=== PATIENT | male | born 1975 | race Caucasian/White ===

== ENCOUNTER → 2016-09-19 | Outpatient (CLI) | payer OTHER ==
[~2016-09-19] MED LIST: AMPH10TA2 PO; AMPH20CA3 PO; BENZ-88 PO; BREX1TAB3 PO; BREX1TAB6 PO; CINA0.42 PO; CLON1TAB3 PO; ERGO500011 PO; ESOM20CA PO; GLC/500 PO; METH1CAP PO; PANT40TA PO; PERP1TAB5 PO; PRAZ1CAP10 PO; PROP20TA67 PO; PROP40TA5 PO; PXL20 PO; QUET300T2 PO; SERT-234 PO; VILA1TAB2 PO
--- NOTE | 2016-09-19 22:09 | DIAGNOSTIC IMAGING REPORT ---
NUCLEAR PARATHYROID SCAN CLINICAL HISTORY: Elevated parathyroid hormone levels. COMPARISON STUDY: No priors. TECHNIQUE: Nuclear parathyroid scan is performed following the IV administration of 20.4 mCi of technetium 99m labeled Cardiolite. Images are acquired at 15 minutes and 3 hours in multiple obliquities. 3-D reformats are created and assessed. FINDINGS: On the initial 15 minute images there is expected tracer activity within the salivary glands and thyroid. There is also expected myocardial activity. On the 3 hour delayed images there has been washout of tracer from the thyroid gland. There is no focal tracer deposition identified in the thyroid bed to suggest parathyroid adenoma. No abnormal tracer deposition is identified within the neck or the mediastinum. IMPRESSION: There is no scintigraphic evidence of parathyroid adenoma as clinically queried. Electronically signed by: Mika Weber M.D. 09/19/2016 10:07 PM Dictated Date/Time: 09/19/2016 10:05 PM
== END | disposition home or self-care (01) ==
LOC: C.NUCL 14:23
PROVIDERS: ATTEND Internal Medicine Endocrinology, Diabetes & Metabolism
DX: E34.9 Endocrine disorder, unspecified (principal)

== ENCOUNTER 2017-03-04 22:56 | Emergency (ER) | payer OTHER ==
[~2017-03-04] VITALS: Ht 177.8 cm; Wt 115.6 kg
[~2017-03-04 22:56] MED LIST changes: -AMPH10TA2 PO; -AMPH20CA3 PO; -BENZ-88 PO; -BREX1TAB6 PO; +CGN1X PO; -CINA0.42 PO; -ERGO500011 PO; -GLC/500 PO; -PANT40TA PO; -PRAZ1CAP10 PO; -PROP20TA67 PO; -QUET300T2 PO; -SERT-234 PO
[2017-03-04 23:01] VITALS: Ht 177.8 cm; Wt 115.6 kg
[2017-03-04] MEDS ORDERED: ALUMINUM/MAGNESIUM SUSP 30 ML UDC PO STA (23:13)
[2017-03-04] MEDS ORDERED: ONDANSETRON INJ 2 MG/ML 2 ML VIAL IV STA (23:13)
[2017-03-04] MEDS ORDERED: LIDOCAINE HCL 2% VISC SOLN 20 ML UDC PO STA (23:13)
[2017-03-04 23:33] VITALS: O2SAT 97
[2017-03-04 23:37] LABS: BASO % 0.3 %; BASO ABS # 0.02 K/uL (0-0.2); COMPLETE YES; EOS % 3.2 %; HEMATOCRIT 38.5 % (42-52); IG% 0.5 %; LYMPH % 39.3 %; LYMPH ABS # 2.96 K/uL (1.2-3.4); MEAN CELL VOLUME 87.5 fL (80-100); MEAN CORPUSCULAR HEMOGLOBIN 30.9 pg (25-34); MEAN CORPUSCULAR HGB CONC 35.3 g/dl (32-36); MEAN PLATELET VOLUME 9.5 fL (7.4-10.4); MONO % 5.8 %; NEUT % 50.9 %; PLATELET COUNT 169 K/uL (130-400); WHITE BLOOD COUNT 7.53 K/uL (4.8-10.8)
[2017-03-04 23:57] LABS: ALT/SGPT 99 U/L (12-78); AST/SGOT 45 U/L (15-37); BLOOD UREA NITROGEN 14 mg/dl (7-18); CALCIUM 8.1 mg/dl (8.5-10.1); CARBON DIOXIDE 27 mmol/L (21-32); CHLORIDE 105 mmol/L (98-107); GLUCOSE 125 mg/dl (70-99); SODIUM 142 mmol/L (136-145)
[2017-03-04 23:59] LABS: ALKALINE PHOSPHATASE 65 U/L (45-117)
[2017-03-05 00:59] VITALS: TEMP 36.7
[2017-03-05] MEDS ORDERED: BREX1TAB6 PO (01:07)
[2017-03-05] MEDS ORDERED: SERT-234 PO (01:08)
[2017-03-05] MEDS ORDERED: GLC/500 PO (01:09)
[2017-03-05] MEDS ORDERED: PROP20TA67 PO (01:11)
[2017-03-05] MEDS ORDERED: CINA0.42 PO (01:13)
[2017-03-05] MEDS ORDERED: PRAZ1CAP10 PO (01:14)
[2017-03-05] MEDS ORDERED: QUET300T2 PO (01:15)
[2017-03-05] MEDS ORDERED: AMPH10TA2 PO (01:17)
[2017-03-05] MEDS ORDERED: AMPH20CA3 PO (01:17)
[2017-03-05] MEDS ORDERED: ERGO1CAP41 PO (01:19)
[2017-03-05 01:59] VITALS: BP 110/80; PULSE 75; O2SAT 97
[2017-03-05] MEDS ORDERED: PANTOprazole SOD 40 MG TAB PO STA (02:11)
[2017-03-05] MEDS ORDERED: PANT40TA PO (02:15)
--- NOTE | 2017-03-05 05:17 | EMERGENCY ROOM VISIT NOTE ---
History First contact with patient: 23:08 Chief Complaint: ABDOMINAL PAIN Stated Complaint: ABDOMINAL PAIN,NAUSEA Nursing Triage Summary: abdominal pain 12/29. pt states it started a few hours ago and he took a zantac. pt states he was eating taco jenkins and typically doesnt feel this way afterwards History of Present Illness The patient is a 41 year old male who presents to the Emergency Room with complaints of epigastric right upper quadrant pain for the past several hours after eating Taco Jenkins. Pain currently 5 out of 10. Nothing makes it better or worse. No history similar symptoms in the past. Patient tried Zantac with no improvement of symptoms. Patient denies chest pain, dyspnea, fever, chills, vomiting, diarrhea, back pain, urinary symptoms. He still has his gallbladder. Review of Systems See HPI for pertinent positives & negatives. A total of 10 systems reviewed and were otherwise negative. Past Medical/Surgical History Medical Problems: (1) Anxiety (2) Depression (3) Depression (4) Hypertension (5) Manic bipolar I disorder Family History Cancer Gallbladder disease Hypertension Social History Smoking Status: Never Smoker Alcohol Use: occasionally Drug Use: none Marital Status: single Housing Status: lives alone Occupation Status: [employer] student Current/Historical Medications Scheduled Amphetamine-Dextroamphetamine 10MG (Adderall 10MG), 10 MG PO DAILY@ NOON Amphetamine-Dextroamphetamine 20MG (Adderall Xr 20MG), 20 MG PO QAM Brexpiprazole (Rexulti), 4 MG PO QAM Cinacalcet (Sensipar), 30 MG PO BID Clonazepam (Klonopin), 1 MG PO QID Ergocalciferol (Vitamin D 55097 Unit), 50,000 UNITS PO WK Metformin Hcl (Glucophage), 1,000 MG PO BID Pantoprazole (Protonix), 40 MG PO DAILY Prazosin Hcl (Prazosin), 1 MG PO HS Propranolol Hcl (Propranolol Hcl), 40 MG PO TID Quetiapine Fumarate (Seroquel Xr), 600 MG PO HS Sertraline (Zoloft), 200 MG PO DAILY Allergies Coded Allergies: Chlordiazepoxide (Unverified Allergy, Unknown, ANGRY/AGGRESSIVE, 05/09/16) Physical Exam Vital Signs Date Time Temp Pulse Resp B/P (MAP) Pulse Ox O2 Delivery O2 Flow Rate FiO2 03/05/17 01:59 75 18 110/80 97 Room Air 03/05/17 00:59 36.7 70 18 112/81 97 Room Air 03/04/17 23:35 73 03/04/17 23:34 36.7 73 18 120/91 97 Room Air 03/04/17 23:33 97 Room Air 03/04/17 23:25 95 Room Air 03/04/17 23:01 36.7 73 18 144/99 96 Room Air Physical Exam VITALS: Vitals are noted on the nurse's note and reviewed by myself. Vital signs stable. GENERAL: Pleasant male, in no acute distress, nondiaphoretic, well-developed well-nourished. SKIN: The skin was without rashes, erythema, edema, or bruising. There is no tenting of the skin. Capillary reflex less than 2 seconds. HEAD: Normocephalic atraumatic. EARS: External auditory canals clear, tympanic membranes pearly martinez without erythema or effusion bilaterally. EYES: Pupils equal round and reactive to light and accommodation. Conjunctivae without injection, sclerae without icterus. Extraocular movements intact. NOSE: Patent, turbinates without inflammation or discharge. MOUTH: Mucous membranes moist. Pharynx without erythema or exudate. Uvula midline. Airway patent. Tongue does not deviate. NECK: Supple without nuchal rigidity. No lymphadenopathy. No thyromegaly. Cervical spine is nontender. No JVD. HEART: Regular rate and rhythm without murmurs gallops or rubs. LUNGS: Clear to auscultation bilaterally without wheezes, rales or rhonchi. No dullness to percussion. No retractions or accessory muscle use. ABDOMEN: Positive bowel sounds x 4. Normal tympanic percussion. Soft, tender to palpation epigastric right upper quadrant, no CVA tenderness, without masses or organomegaly. No guarding or rebound tenderness. MUSCULOSKELETAL: No muscle atrophy, erythema, or edema noted. NEURO: Patient was alert and oriented to person place and time. Normal sensation to light and sharp touch. No focal neurological deficits. Medical Decision & Procedures Laboratory Results 03/04/17 23:23 Red Blood Count 4.40, Mean Corpuscular Volume 87.5, Mean Corpuscular Hemoglobin 30.9, Mean Corpuscular Hemoglobin Concent 35.3, Mean Platelet Volume 9.5, Neutrophils (%) (Auto) 50.9, Lymphocytes (%) (Auto) 39.3, Monocytes (%) (Auto) 5.8, Eosinophils (%) (Auto) 3.2, Basophils (%) (Auto) 0.3, Neutrophils # (Auto) 3.83, Lymphocytes # (Auto) 2.96, Monocytes # (Auto) 0.44, Eosinophils # (Auto) 0.24, Basophils # (Auto) 0.02 03/04/17 23:23 Test 03/04/17 23:23 03/04/17 23:31 White Blood Count 7.53 K/uL (4.8-10.8) Red Blood Count 4.40 M/uL (4.7-6.1) Hemoglobin 13.6 g/dL (14.0-18.0) Hematocrit 38.5 % (42-52) Mean Corpuscular Volume 87.5 fL (80-100) Mean Corpuscular Hemoglobin 30.9 pg (25-34) Mean Corpuscular Hemoglobin Concent 35.3 g/dl (32-36) Platelet Count 169 K/uL (130-400) Mean Platelet Volume 9.5 fL (7.4-10.4) Neutrophils (%) (Auto) 50.9 % Lymphocytes (%) (Auto) 39.3 % Monocytes (%) (Auto) 5.8 % Eosinophils (%) (Auto) 3.2 % Basophils (%) (Auto) 0.3 % Neutrophils # (Auto) 3.83 K/uL (1.4-6.5) Lymphocytes # (Auto) 2.96 K/uL (1.2-3.4) Monocytes # (Auto) 0.44 K/uL (0.11-0.59) Eosinophils # (Auto) 0.24 K/uL (0-0.5) Basophils # (Auto) 0.02 K/uL (0-0.2) RDW Standard Deviation 44.2 fL (36.4-46.3) RDW Coefficient of Variation 13.9 % (11.5-14.5) Immature Granulocyte % (Auto) 0.5 % Immature Granulocyte # (Auto) 0.04 K/uL (0.00-0.02) Anion Gap 10.0 mmol/L (3-11) Est Creatinine Clear Calc Drug Dose 121.3 ml/min Estimated GFR () 106.4 Estimated GFR (Non- 91.8 BUN/Creatinine Ratio 14.0 (10-20) Calcium Level 8.1 mg/dl (8.5-10.1) Total Bilirubin 0.3 mg/dl (0.2-1) Direct Bilirubin < 0.1 mg/dl (0-0.2) Aspartate Amino Transf (AST/SGOT) 45 U/L (15-37) Alanine Aminotransferase (ALT/SGPT) 99 U/L (12-78) Alkaline Phosphatase 65 U/L (45-117) Total Protein 7.6 gm/dl (6.4-8.2) Albumin 4.1 gm/dl (3.4-5.0) Lipase 305 U/L (73-393) Hepatitis B Surface Antigen NEG (NEG) Hepatitis C Antibody NEG (NEG) Bedside Troponin I < 0.030 ng/ml (0-0.045) Medications Administered Medications (Trade) Dose Ordered Sig/Esteban Route Start Time Stop Time Status Last Admin Dose Admin Lidocaine HCl (Viscous Lidocaine 2% Soln) 10 ml NOW STAT PO 03/04/17 23:13 03/04/17 23:15 DC 03/04/17 23:30 10 ML Al Hydroxide/Mg Hydroxide (Maalox Susp) 30 ml NOW STAT PO 03/04/17 23:13 03/04/17 23:15 DC 03/04/17 23:30 30 ML Ondansetron HCl (Zofran Inj) 4 mg NOW STAT IV 03/04/17 23:13 03/04/17 23:15 DC 03/04/17 23:30 4 MG Pantoprazole Sodium (Protonix Tab) 40 mg NOW STAT PO 03/05/17 02:11 03/05/17 02:13 DC 03/05/17 02:21 40 MG ED Course Prior records/ancillary studies reviewed. Triage Nursing notes reviewed. The patient's history was concerning for abdominal pain. Differential diagnosis: Etiologies such as appendicitis, diverticulitis, PUD, biliary pathology, cardiac , UTI, pancreatitis, obstruction, mesenteric ischemia, aortic pathology, infections, inflammatory bowel disease, renal colic, as well as others were entertained. Physical examination findings: As above. ER treatment provided: GI cocktail, Protonix On reassessment the patient felt better. Diagnostics interpreted by me: ECG: Normal sinus, normal intervals, no acute ST-T wave changes. Impression normal sinus interpreted by myself The labs revealed mildly elevated LFTs. Negative troponin. No white count. Negative hepatitis panel Imaging studies: US RUQ: Enlarged liver with increased echogenicity suggesting hepatic steatosis. Gallbladder sludge. Tiny echogenic foci with twinkle artifact may represent tiny polyps, adenomyomatosis or non-shadowing gallstones. No distinct shadowing gallstones noted. No gallbladder wall thickening or pericholecystic fluid. Common bile duct is within normal limits. Right kidney is unremarkable. Radiologist: Alhaji Antonio MD Exam and history seem consistent with biliary colic. Patient felt much better after being medicated as above. He was advised to avoid fatty foods and to follow-up family care for further evaluation and workup for his symptoms tonight. He is advised to return to the ER immediately for abdominal pain, fevers, vomiting, worsening signs or symptoms or as needed. Patient did not have acute abdomen on exam. He is well-appearing. He is tolerating fluids. By the evaluation outlined above emergent etiologies such as appendicitis, diverticulitis, PUD, UTI, pancreatitis, obstruction, mesenteric ischemia, aortic pathology, infections, inflammatory bowel disease, renal colic, as well as others were deemed relatively unlikely. The pt informed about the findings as listed above. All questions were answered and pleased with the treatment. Return instructions were outlined and the patient was discharged in stable condition. Outpatient prescription management: Protonix Referral: The patient was referred back to their primary care physician for follow-up in 2 to 3 days for a recheck of the current condition. Case reviewed with my attending Medical Decision As above Impression Primary Impression: Biliary colic Departure Information Dispostion Home / Self-Care Condition GOOD Prescriptions Pantoprazole (Protonix) 40 Mg Tab 40 MG PO DAILY for 14 Days, #14 TAB Prov: Luzmaria Levy .MARÍA 03/05/17 Forms Call Back Authorization, HOME CARE DOCUMENTATION FORM, IMPORTANT VISIT INFORMATION Patient Instructions My [facility], ED Abdominal Pain Gallstone Poss Additional Instructions Recommend outpatient HIDA scan with the family care DrVicente for further workup on your gallbladder. Avoid fatty foods. Protonix 40 m tablet daily for next 2 weeks. Take this on an empty stomach. Try Maalox or Zantac for breakthrough symptoms for reflux. Avoid large meals. Avoid acidic foods. Rest and drink plenty of fluids as tolerated. Continue current medications. Avoid strenuous activities and anything that worsens your pain. Resume normal activities once your symptoms resolve. Return to the ER immediately for chest pain, abdominal pain, black or blood in your stools, vomiting, fevers, chest pains, difficulty breathing, worsening of your condition, or as needed. Follow up with your primary physician in 2-3 days for a recheck of your current condition.
--- NOTE | 2017-03-05 07:39 | DIAGNOSTIC IMAGING REPORT ---
ABDOMINAL ULTRASOUND, RIGHT UPPER QUADRANT HISTORY: Right upper quadrant abdominal pain.. COMPARISON: Abdomen and pelvis CT 10/25/2015. FINDINGS: Pancreas: The head of the pancreas is within normal limits. The body and tail the pancreas are obscured by overlying bowel gas. Liver: The liver is echogenic consistent with fatty change. 24 cm in length. Focal fatty sparing adjacent to the gallbladder fossa. Gallbladder: No gallbladder wall thickening. Gallbladder sludge and a few punctate gallstones. Gallbladder is distended. CBD: 5 mm. Right kidney: No hydronephrosis. IMPRESSION: 1. Mildly distended gallbladder. No gallbladder wall thickening. Gallbladder sludge and a few punctate gallstones are again noted. This is overall similar to the prior study. 2. Hepatomegaly demonstrating fatty change. Electronically signed by: Obi Burris M.D. 03/05/2017 7:38 AM Dictated Date/Time: 03/05/2017 7:34 AM
--- NOTE | 2017-03-05 07:54 | DIAGNOSTIC IMAGING REPORT ---
CHEST ONE VIEW PORTABLE HISTORY: Short of breath. Atypical CHEST PAIN COMPARISON: Chest 05/09/2016. FINDINGS: No pneumothorax. No pleural effusions. The lungs are clear. The heart remains mildly enlarged. IMPRESSION: Stable mild cardiomegaly. Electronically signed by: Obi Burris M.D. 03/05/2017 7:53 AM Dictated Date/Time: 03/05/2017 7:52 AM
== END 2017-03-05 02:27 | disposition home or self-care (01) ==
LOC: C.EDB 22:58
DX: K80.50 Calculus of bile duct without cholangitis or cholecystitis without obstruction (principal); I10 Essential (primary) hypertension; F31.9 Bipolar disorder, unspecified; F41.9 Anxiety disorder, unspecified; Z79.899 Other long term (current) drug therapy

== ENCOUNTER → 2017-03-10 | Outpatient (CLI) | payer OTHER ==
[~2017-03-10] MED LIST changes: +AMPH10TA2 PO; +AMPH20CA3 PO; -BREX1TAB3 PO; +BREX1TAB6 PO; -CGN1X PO; +CINA0.42 PO; +ERGO500011 PO; -ESOM20CA PO; +GLC/500 PO; -METH1CAP PO; +PANT40TA PO; -PERP1TAB5 PO; +PRAZ1CAP10 PO; -PXL20 PO; +QUET300T2 PO; +SERT-234 PO; +SINCALIDE INJ 2.3 MCG in SODIUM CHLORIDE 0.9% 100ML 100 ML IV ONE; -VILA1TAB2 PO
--- NOTE | 2017-03-10 14:41 | DIAGNOSTIC IMAGING REPORT ---
NUCLEAR MEDICINE HEPATOBILIARY SCAN WITH EJECTION FRACTION HISTORY: ] Quadrant abdominal pain. BILIARY PAIN COMPARISON: Abdominal ultrasound 03/05/2017. TECHNIQUE: Immediately following the intravenous administration of 5.5 mCi Tc-99m Choletec, dynamic anterior abdominal imaging pre/post 2.3 mcg of Kinevac was performed. FINDINGS: Uniform hepatic tracer accumulation is shown. Prompt intrahepatic biliary excretion is seen. The gallbladder, common bile duct, and small bowel are all visualized by 35 minutes. This appearance represents the normal sequence of biliary excretion. The gall bladder ejection fraction following administration of Kinevac was 13% (normal >35%). IMPRESSION: 1. No evidence for cystic duct obstruction. 2. Gallbladder ejection fraction calculated to be 13 %. This is considered abnormal and could be related to biliary dyskinesia. Electronically signed by: Obi Burris M.D. 03/10/2017 2:40 PM Dictated Date/Time: 03/10/2017 2:38 PM
== END | disposition home or self-care (01) ==
LOC: C.NUCL 12:14
PROVIDERS: ATTEND Family Medicine
DX: K80.50 Calculus of bile duct without cholangitis or cholecystitis without obstruction (principal)

== ENCOUNTER → 2017-03-13 | Outpatient (CLI) | payer OTHER ==
[~2017-03-13] MED LIST changes: +ERGO1CAP41 PO; -ERGO500011 PO; -SINCALIDE INJ 2.3 MCG in SODIUM CHLORIDE 0.9% 100ML 100 ML IV ONE
[2017-03-13 09:44] LABS: CALCIUM 8.1 mg/dl (8.5-10.1)
== END | disposition home or self-care (01) ==
LOC: C.LAB1850 07:09
PROVIDERS: ATTEND Physician Assistant
DX: I10 Essential (primary) hypertension (principal); E83.52 Hypercalcemia; E34.9 Endocrine disorder, unspecified; E11.9 Type 2 diabetes mellitus without complications; E78.5 Hyperlipidemia, unspecified; E55.9 Vitamin D deficiency, unspecified

== ENCOUNTER → 2017-03-27 | Outpatient (CLI) | payer OTHER ==
[~2017-03-27] MED LIST changes: -ERGO1CAP41 PO; +ERGO500011 PO; -PANT40TA PO
== END | disposition home or self-care (01) ==
LOC: C.LAB1850 07:26
PROVIDERS: ATTEND Internal Medicine Endocrinology, Diabetes & Metabolism
DX: E83.52 Hypercalcemia (principal)

== ENCOUNTER → 2017-04-10 | Outpatient (CLI) | payer OTHER | END | disposition home or self-care (01) | LOC: C.LAB1850 07:34 | PROVIDERS: ATTEND Internal Medicine Endocrinology, Diabetes & Metabolism | DX: E34.9 Endocrine disorder, unspecified (principal) ==

== ENCOUNTER → 2017-07-13 | Outpatient (CLI) | payer OTHER | END | disposition home or self-care (01) | LOC: C.LAB1850 08:45 | PROVIDERS: ATTEND Physician Assistant | DX: R53.83 Other fatigue (principal) ==

== ENCOUNTER → 2017-07-19 | Outpatient (CLI) | payer OTHER | END | disposition home or self-care (01) | LOC: C.LAB1850 11:12 | PROVIDERS: ATTEND Physician Assistant | DX: E34.9 Endocrine disorder, unspecified (principal) ==

== ENCOUNTER → 2017-08-02 | Outpatient (CLI) | payer OTHER ==
--- NOTE | 2017-08-03 06:54 | PAP/PSG TECHNICIAN REPORT ---
[facility] Manager Garage Polysomnogram Report Study name: None Report date: 08/03/2017 Study date: 08/02/2017 Referring Physician: Dr.Michael Aden Name: TATYANA JUAREZ Interpreting Physician: Markus Suresh M.D. Date of : 1975 Manager Garage: Soraya Menchaca [facility]. Sex: Male Age: 42 StudyType: PSG Weight: 268.8 lbs Height: 42 years, Height 5' 9.5" BMI: 39.12 Medications: Klonopin 1mg , Wellbutrin XL 300 mg, Paxil 20 mg, Inderal 20 mg, Seroquel XR 400 mg, Metformin 500 mg, Adderall 20 mg, Diovan 80 mg, Vitamin D 50,000 IU, Flonasse, Vitamin B12 Patient History 42 yr. old male here for an updated PSG with mouth piece. Patient had a PSG done on 05/19/15, he had an AHI of 3.3 and Snore index of 581.7 and was under 89% for 266.6. He has since gained 14 pounds. Patient is not sure if his medication is causing his EDS. ESS 01/12. Parameters Monitored NPSG: E1-M2, E2-M1, Fp1-M2, Fp2-M1, F3-M2, F4-M2, F4-M1, C3-M2, C4-M2, C4-M1, O1-M2, O2-M2, O2-M1, T3-M2, T4-M1, P3-M2, P4-M1, CHIN1, CHIN2, HR, EKG, Legs, PFLOW, SNOR, FLOW, CFLOW, Tidal Volume, THOR, ABDO, SpO2, PLTH, CPRESS, ETCO2 Wave, ETCO2, pH Sleep Architecture Sleep Stages Time at Lights Off 10:10:44 PM STAGES Time (min.) TST (%) Time at Lights On 5:37:44 AM Wake 180.0 -- Total Recording Time (TRT) 447.50 min. N1 33.0 12 Total Sleep Period (TSP) 297.0 min. N2 199.5 75 Total Sleep Time (TST) 267.0min. N3 0.0 0 Awake Time 180.0 min. REM 34.5 13 Wake after Sleep Onset 30.0 min. Sleep Efficiency (SE) 60 % Sleep Onset Latency (JAELYN) 150.0 min. Number of Stage 1 Shifts None Awakenings 11 Stage Changes 48 Number of REM periods 5 REM 34.5 13 REM Latency 159.0 min. NREM 232.5 87 Body Position Analysis Supine Right Left Side Prone Vertical Total Sleep Time (min.) 151.2 117.3 21.0 138.33 0.0 0.0 Total Sleep Time (%) 48% 44% 8% 52 0% N/A% Total Sleep Time REM (min.) 31.0 3.5 0.0 None 0.0 0.0 Total Sleep Time NREM (min.) 97.7 113.8 21.0 None 0.0 0.0 Intermittent Wake (min.) 22.6 102.8 54.7 None 0.0 0.0 Total Sleep Period (%) 45% None None None None None Arousals Myoclonus (PLM) * Events Count Index Events Count Index Spontaneous 4 1 Events Awake (PLMW) 50 16.7 Respiratory 0 0.0 Events Asleep w/ Arousal (PLMA) 13 2.9 PLM 13 3 Events Asleep w/o Arousal (PLMS) 28 6.3 Snoring 5 1 Total Asleep 41 9.2 Total 22 5 Total 91 12 Respiratory Analysis * CA OA MA CH H RERA Total Count 1 0 0 0 44 0 45 Index 0.2 0.0 0.0 0 9.9 0 10.1 Mean Duration 13.0 0.0 0.0 0.00 18.5 0.0 18.3 Longest Duration 13.0 0.0 0.0 0.00 0.0 0.0 31.1 Respiratory Event Summary Total Supine ~Supine Right Left Prone REM NREM Apneas Count 1 1 0 0 0 N/A 1 0 Index 0.2 0 0 0.0 0.0 N/A 2 0 Hypopneas (4% Desat) Count 44 20 24 22 2 N/A 13 31 Index 9.9 9.3 10 11.3 5.7 N/A 22.6 8.0 Apneas & All Hypopneas Count 45 21 24 22 2 N/A 14 31 Index 10.1 10 10 11 6 N/A 24.3 8.0 Respiratory Events (Med[employer] Professor+All Hyp+RERA) Count 45 21 24 22 2 N/A 14 31 Index 10.1 10 10 11.3 5.7 N/A 24.3 8.0 Respiratory Related Arousal Count 0 21 0 0 0 N/A 0 0 Index 0.0 0 0 0 0 N/A 0 0 Snoring Analysis Supine Right Left Prone REM NREM Total Snore duration 55.0 min Snores count 1,998 964 4 N/A 168 2,798 2,966 Snore mean duration 1.1 Sec Snores index 932 493 11 N/A 292.2 722.1 666.5 TST with snoring (%) 20.6% Desaturation Event Summary: Minimum %SpO2 Event Count Mean/Min/Max Duration(sec.) Desaturation Index % Time In Bed > 90 99 16.0 / 4.5 / 51.5 31.7 42.4 86 - 90 72 14.9 / 4.5 / 60.0 17.2 57.0 81 - 85 0 N/A 0.0 0.5 76 - 80 0 N/A 0.0 0.1 71 - 75 0 N/A 0.0 0.0 66 - 70 0 N/A 0.0 0.0 61 - 65 0 N/A 0.0 0.0 56 - 60 0 N/A 0.0 0.0 51 - 55 0 N/A 0.0 0.0 < 50 0 N/A 0.0 0.0 Total REM NREM Awake <50% 0.0 min. 0.0 min. 0.0 min. 0.0 min. 51 - 60% 0.0 min. 0.0 min. 0.0 min. 0.0 min. 61 - 70% 0.0 min. 0.0 min. 0.0 min. 0.0 min. 71 - 80% 0.6 min. 0.2 min. 0.0 min. 0.4 min. 81 - 90% 253.8 min. 20.5 min. 188.8 min. 44.5 min. 91 - 100% 187.1 min. 13.8 min. 43.7 min. 129.6 min. Average 90 90 89 91 Minimum SpO2 78 80 84 78 Desaturation Event Index 16.5 31.3 17.3 13.7 # Desat. Events below 89% 107 13 64 30 Time(%) with Saturation below 89% 22.5 1.6 19.1 1.9 Time(min.) with Saturation below 89% 99.6 6.9 84.2 8.5 Time (mins) REM (mins) NREM (mins) % of TST SpO2 Below 90% 83 18 N65 58.4 SpO2 Below 88% 21 0 0 15 Heart Rate Analysis Min (bpm) Max (bpm) Average (bpm) Awake 62 103 84 NREM 77 105 94 REM 85 105 99 Overall 77 105 95 Supplemental O2 Values Minimum O2 level: None Value Start Time End Time Manager Garage Comments slept in the right, left, and supine positions. No cardiac arrhythmia or PLMs noted. Bruxism noted. Snoring was noted and scored as a 3 on a scale of 0 through 5. (0=no snoring, 5=snoring loud enough to be heard through a closed door or down the thomas way) awoke to use the restroom once during the night. stated, I did not sleep as well as I do when I am in my own bed. The final report will be interpreted and signed by a sleep physician. The completed physician report will then be placed in the patient medical record. Therapy (cm H2O) 0 TIB (min.) 447.0 TST (min.) 267.0 Sleep Onset (min.) 150.0 REM Onset From Sleep (min.) 159.0 Sleep Efficiency % 60 Wakefulness (%) 40 Wakefulness (min.) 180.0 NREM 1 (%) 12 NREM 1 (min.) 33.0 NREM 2 (%) 75 NREM 2 (min.) 199.5 NREM 3 (%) 0 NREM 3 (min.) 0.0 REM (%) 13 REM (min.) 34.5 # Arousals 22 Arousal Index 5 # Snore 2,966 Snore Index 666.5 AHI 10.1 AHI Supine 10 AHI Non-Supine 10 NREM AHI 8.0 REM AHI 24.3 RDI 10.1 # Obstructive Apnea 0 # Central Apnea 1 # Mixed Apnea 0 # Hypopneas 44 RERAs 0 Total Respiratory Events 54 Time Below SpO2 89% (min.) 91.1 Mean NREM SpO2 (%) 89 Mean REM SpO2 (%) 90 Mean Sleep SpO2 (%) 89 Min NREM SpO2 (%) 84 Min REM SpO2 (%) 80 Position Supine (min.) 151.2 Position Non-supine (min.) 138.3 LM Index Sleep 9.2 LM Index NREM 7.5 LM Index REM 20.9 Mean Heart Rate (bpm) 95 Min Heart Rate (bpm) 77
--- NOTE | 2017-08-04 14:31 | POLYSOMNOGRAPH REPORT ---
CLINICAL DATA: A 42-year-old male with BMI of 39.12, referred by Dr. Bradley Aden. The patient currently has an oral appliance. He had a PSG done in April 2015, which showed an AHI of 3.3 and a very elevated snore index with nocturnal hypoxemia. He is having excessive daytime sleepiness. He has gained 14 pounds since his previous PSG. His [place] sleepiness score is 8/24. SLEEP ARCHITECTURE: Total sleep period was 297 minutes. Total sleep time was 267 minutes, divided between 232.5 minutes of non-REM sleep and 34.5 minutes of REM sleep. Sleep onset latency was delayed at 150 minutes. REM latency was delayed at 159 minutes. Sleep efficiency was reduced at 60%. Wake after sleep onset was 30 minutes. Sleep consisted of stage N1 12%, stage N2 75%, and REM 13%. AROUSAL DATA: 22 arousals were recorded for an index of 5 per hour. PERIODIC LIMB MOVEMENTS DATA: 41 limb movements during sleep were noted for an index of 9.2 per hour with arousal index of 2.9 per hour. RESPIRATORY DATA: Mild sleep apnea was documented. The AHI was 10.1. There was 1 central apneic episode 13 seconds in duration. There were 44 hypopneic episodes with mean duration of 18.5 seconds. OXIMETRY DATA: Nocturnal hypoxemia was seen. Oxygen everardo was 80% during REM. Mean saturation was 90%. Time below 88% was 21 minutes. ELECTROCARDIOGRAM: Heart rate ranged from 77-105 beats per minute. No arrhythmias were noted. BASEBALL SCOUT'S COMMENTS: The patient slept in the right, left, and supine positions. Bruxism was noted. Snoring was moderate, rated 3 on a scale of 1-5. IMPRESSION: Mild sleep apnea/hypopnea with an apnea hypopnea index of 10.1 with nocturnal hypoxemia. RECOMMENDATIONS: The patient may benefit from adjustment of his oral appliance or consider a possible trial of CPAP. Clinical correlation is needed. [facility]
== END | disposition home or self-care (01) ==
LOC: C.NEUR 21:00
PROVIDERS: ATTEND Family Medicine
DX: G47.30 Sleep apnea, unspecified (principal)

== ENCOUNTER → 2017-08-11 | Outpatient (CLI) | payer OTHER ==
[~2017-08-11] VITALS: Ht 177.8 cm; Wt 123.3 kg
[2017-08-11 14:54] VITALS: BP 121/77; PULSE 128; Ht 177.8 cm; Wt 123.3 kg
== END | disposition home or self-care (01) ==
LOC: C.NEUR 14:23
PROVIDERS: ATTEND Internal Medicine Pulmonary Disease
DX: G47.33 Obstructive sleep apnea (adult) (pediatric) (principal); F30.9 Manic episode, unspecified; E66.9 Obesity, unspecified; R53.83 Other fatigue

== ENCOUNTER → 2017-08-15 | Outpatient (CLI) | payer OTHER | END | disposition home or self-care (01) | LOC: C.LABSPEC 11:09 | PROVIDERS: ATTEND Internal Medicine | DX: R05 Cough (principal); R06.02 Shortness of breath; R53.1 Weakness ==

== ENCOUNTER → 2017-09-04 | Outpatient (CLI) | payer OTHER ==
[2017-09-04 15:07] LABS: CALCIUM 9.7 mg/dl (8.5-10.1)
[2017-09-04 15:21] LABS: ALBUMIN 4.3 gm/dl (3.4-5.0)
== END | disposition home or self-care (01) ==
LOC: C.LAB1850 13:30
PROVIDERS: ATTEND Physician Assistant
DX: E34.9 Endocrine disorder, unspecified (principal); E03.9 Hypothyroidism, unspecified; E11.9 Type 2 diabetes mellitus without complications

== ENCOUNTER → 2017-09-08 | Outpatient (CLI) | payer OTHER ==
--- NOTE | 2017-09-09 06:45 | PAP/PSG TECHNICIAN REPORT ---
[facility] [employer] Prescription Clerk Polysomnogram Report Study name: None Report date: 09/09/2017 Study date: 09/08/2017 Referring Physician: Markus Suresh M.D. Name: TATYANA JUAREZ Interpreting Physician: Markus Suresh M.D. Date of : 1975 [employer] Prescription Clerk: Sharron Garcia [facility] [place]. Sex: Male Age: 42 Study Type: PSG Weight: 271 lbs 18 in Height: 42 years, Height 5' 10" Neck Circum: BMI: 38.88 Medications: ADDERALL 20 MG, KLONOPIN 1 MG, LEVOTHYROXINE 50 MCG, METFORMIN 500 MG, PROPRANOLOL 20 MG, PROVIGIL 100 MG, SEROQUEL 400 MG, VALSARTAN 80 MG, VIIBRYD 20 MG, VIT D3 31142 UNIT, WELLBUTRIN 300 MG Patient History 42 yr-old male here for a baseline/modified split study. He is wearing is oral appliance during the baseline portion of the study, and it will be adjusted accordingly. Cpap is to be introduced if his AHI exceeds 10. His Blanchard scale is 10. The test was started on room air with his oral appliance. ETCO2 testing was not utilized during this study. Room 1 Parameters Monitored NPSG: E1-M2, E2-M1, Fp1-M2, Fp2-M1, F3-M2, F4-M2, F4-M1, C3-M2, C4-M2, C4-M1, O1-M2, O2-M2, O2-M1, T3-M2, T4-M1, P3-M2, P4-M1, CHIN1, CHIN2, HR, EKG, Legs, PFLOW, SNOR, FLOW, CFLOW, Tidal Volume, THOR, ABDO, SpO2, PLTH, CPRESS, ETCO2 Wave, ETCO2, pH Sleep Architecture Sleep Stages Time at Lights Off 9:57:44 PM STAGES Time (min.) TST (%) Time at Lights On 5:45:44 AM Wake 306.0 -- Total Recording Time (TRT) 468.00 min. N1 39.0 24 Total Sleep Period (TSP) 235.0 min. N2 123.0 76 Total Sleep Time (TST) 162.0min. N3 0.0 0 Awake Time 306.0 min. REM 0.0 0 Wake after Sleep Onset 73.0 min. Sleep Efficiency (SE) 35 % Sleep Onset Latency (JAELYN) 233.0 min. Number of Stage 1 Shifts None Awakenings 11 Stage Changes 45 Number of REM periods N/A REM 0.0 0 REM Latency NONE min. NREM 162.0 100 Body Position Analysis Supine Right Left Side Prone Vertical Total Sleep Time (min.) 88.6 139.0 22.5 161.50 0.0 0.0 Total Sleep Time (%) 0% 86% 14% 100 0% N/A% Total Sleep Time REM (min.) 0.0 0.0 0.0 None 0.0 0.0 Total Sleep Time NREM (min.) 0.5 139.0 22.5 None 0.0 0.0 Intermittent Wake (min.) 88.1 83.4 134.5 None 0.0 0.0 Total Sleep Period (%) 1% None None None None None Arousals Myoclonus (PLM) * Events Count Index Events Count Index Spontaneous 20 7 Events Awake (PLMW) 194 38.0 Respiratory 1 0.4 Events Asleep w/ Arousal (PLMA) 7 2.6 PLM 7 3 Events Asleep w/o Arousal (PLMS) 155 57.4 Snoring 4 1 Total Asleep 162 60.0 Total 32 12 Total 356 46 Respiratory Analysis * CA OA MA CH H RERA Total Count 0 0 0 0 11 0 11 Index 0.0 0.0 0.0 0 4.1 0 4.1 Mean Duration 0.0 0.0 0.0 0.00 12.6 0.0 12.6 Longest Duration 0.0 0.0 0.0 0.00 0.0 0.0 16.6 Respiratory Event Summary Total Supine ~Supine Right Left Prone REM NREM Apneas Count 0 0 0 0 0 N/A N/A 0 Index 0.0 0 0 0.0 0.0 N/A N/A 0 Hypopneas (4% Desat) Count 11 0 11 3 8 N/A N/A 11 Index 4.1 0.0 4 1.3 21.3 N/A N/A 4.1 Apneas & All Hypopneas Count 11 0 11 3 8 N/A N/A 11 Index 4.1 0 4 1 21 N/A N/A 4.1 Respiratory Events (Hall Manager+All Hyp+RERA) Count 11 0 11 3 8 N/A N/A 11 Index 4.1 0 4 1.3 21.3 N/A N/A 4.1 Respiratory Related Arousal Count 1 0 1 0 1 N/A N/A 1 Index 0.4 0 0 0 3 N/A N/A 0 Snoring Analysis Supine Right Left Prone REM NREM Total Snore duration 6.7 min Snores count 0 348 96 N/A N/A 444 444 Snore mean duration 0.9 Sec Snores index 0 150 256 N/A N/A 164.4 164.4 TST with snoring (%) 4.1% Desaturation Event Summary: Minimum %SpO2 Event Count Mean/Min/Max Duration(sec.) Desaturation Index % Time In Bed > 90 217 13.9 / 4.0 / 58.8 49.8 57.7 86 - 90 125 11.6 / 4.0 / 38.3 40.0 41.4 81 - 85 1 7.3 / 7.3 / 7.3 15.5 0.9 76 - 80 0 N/A 0.0 0.0 71 - 75 0 N/A 0.0 0.0 66 - 70 0 N/A 0.0 0.0 61 - 65 0 N/A 0.0 0.0 56 - 60 0 N/A 0.0 0.0 51 - 55 0 N/A 0.0 0.0 < 50 0 N/A 0.0 0.0 Total REM NREM Awake <50% 0.0 min. 0.0 min. 0.0 min. 0.0 min. 51 - 60% 0.0 min. 0.0 min. 0.0 min. 0.0 min. 61 - 70% 0.0 min. 0.0 min. 0.0 min. 0.0 min. 71 - 80% 0.2 min. 0.0 min. 0.0 min. 0.2 min. 81 - 90% 191.5 min. 0.0 min. 104.3 min. 87.2 min. 91 - 100% 261.3 min. 0.0 min. 57.7 min. 203.7 min. Average 91 0 89 92 Minimum SpO2 76 N/A 81 76 Desaturation Event Index 30.0 0.0 9.6 40.8 # Desat. Events below 89% 176 N/A 22 154 Time(%) with Saturation below 89% 19.5 0.0 13.2 6.4 Time(min.) with Saturation below 89% 88.4 0.0 59.6 28.8 Time (mins) REM (mins) NREM (mins) % of TST SpO2 Below 90% 25 N/A N25 45.5 SpO2 Below 88% 5 0 0 20 Heart Rate Analysis Min (bpm) Max (bpm) Average (bpm) Awake 64 109 90 NREM 81 104 95 REM N/A N/A N/A Overall 81 104 95 Supplemental O2 Values Minimum O2 level: None Value Start Time End Time [employer] Prescription Clerk Comments Mr. Juarez slept in the right and left positions. No cardiac arrhythmias or PLMs noted. Several episodes of light bruxism were noted. Snoring was noted and scored as a 2 on a scale of 1 through 5. (0=no snoring, 5=snoring loud enough to be heard through a closed door or down the thomas way) No Rem was obtained. He did not meet specific Split-Night criteria during the diagnostic portion of this study. Mr. Juarez used the restroom three times during the night. Mr. Juarez stated that he was anxious and could not sleep well. He also stated that his oral appliance was causing him jaw pain. The final report will be interpreted and signed by a sleep physician. The completed physician report will then be placed in the patient medical record. Therapy (cm H2O) 0 TIB (min.) 468.0 TST (min.) 162.0 Sleep Onset (min.) 233.0 REM Onset From Sleep (min.) NONE Sleep Efficiency % 35 Wakefulness (%) 65 Wakefulness (min.) 306.0 NREM 1 (%) 24 NREM 1 (min.) 39.0 NREM 2 (%) 76 NREM 2 (min.) 123.0 NREM 3 (%) 0 NREM 3 (min.) 0.0 REM (%) 0 REM (min.) 0.0 # Arousals 32 Arousal Index 12 # Snore 444 Snore Index 164.4 AHI 4.1 AHI Supine 0 AHI Non-Supine 4 NREM AHI 4.1 REM AHI N/A RDI 4.1 # Obstructive Apnea 0 # Central Apnea 0 # Mixed Apnea 0 # Hypopneas 11 RERAs 0 Total Respiratory Events 11 Time Below SpO2 89% (min.) 59.6 Mean NREM SpO2 (%) 89 Mean REM SpO2 (%) N/A Mean Sleep SpO2 (%) 89 Min NREM SpO2 (%) 81 Min REM SpO2 (%) N/A Position Supine (min.) 88.6 Position Non-supine (min.) 161.5 LM Index Sleep 60.0 LM Index NREM 60.0 LM Index REM N/A Mean Heart Rate (bpm) 95 Min Heart Rate (bpm) 81
--- NOTE | 2017-09-12 17:56 | POLYSOMNOGRAPH REPORT ---
CLINICAL DATA: A 42-year-old male with significant underlying psychiatric disease and obstructive sleep apnea. He recently had a sleep study which showed mild LAMAR with an AHI of 10 with his oral appliance in place. He has had difficulty tolerating his oral appliance. Apparently some adjustments were made in his oral appliance and he was brought back at Dr. Jeronimo' request for a sleep study with the oral appliance in place. His primary care physician is Dr. Aden. His BMI is 38.9. SLEEP ARCHITECTURE: Total sleep period was 235 minutes. Total sleep time was 162 minutes divided in all non-REM sleep. Sleep onset latency was delayed at 232 minutes. Sleep efficiency was 35%. Wake after sleep onset was 72 minutes. Sleep consisted of stage N1 24, stage N2 76%. AROUSAL DATA: 32 arousals were recorded for an index of 12 per hour. PLM DATA: 162 limb movements during sleep were noted for an index of 60 per hour with arousal index of 2.6 per hour. RESPIRATORY DATA: The AHI was 4.1. There were 11 hypopneic episodes with a mean duration of 12.6 seconds. OXIMETRY DATA: Oxygen everardo was 81%. Mean saturation was 91%. Time below 88% was 5 minutes. EKG: Heart rates ranged from 81 to 104 beats per minute. No arrhythmias were noted. DIRECTOR OF MANUFACTURING OPERATIONS'S COMMENTS: The patient slept in the right and left positions. He had several episodes of light bruxism. Snoring was mild, rated 2 on a scale of 1-5. He did not achieve REM and had very little sleep through the night. He was awake for almost 4 hours prior to achieving sleep and then had only limited sleep. He did state that his oral appliance was causing him jaw pain and that he was anxious and could not sleep well. IMPRESSION: No evidence of significant sleep apnea in this is very limited sleep study with use of his oral appliance. The patient had difficulty falling asleep and did not achieve REM sleep or deep sleep. RECOMMENDATIONS: The patient is going to be considered for a repeat sleep study with CPAP without his oral appliance. ALBA
== END | disposition home or self-care (01) ==
LOC: C.NEUR 21:00
PROVIDERS: ATTEND Internal Medicine Pulmonary Disease
DX: G47.33 Obstructive sleep apnea (adult) (pediatric) (principal); F30.9 Manic episode, unspecified; E66.9 Obesity, unspecified; Z68.39 Body mass index [BMI] 39.0-39.9, adult; R53.83 Other fatigue; E11.9 Type 2 diabetes mellitus without complications; R06.83 Snoring; Z79.899 Other long term (current) drug therapy

== ENCOUNTER → 2017-09-11 | Outpatient (CLI) | payer OTHER ==
--- NOTE | 2017-09-11 15:41 | ECHOCARDIOGRAM REPORT ---
*NOTICE TO RECEIVING [employer] This information is strictly Confidential and protected under [place] law. [place] law prohibits you from making any further disclosure of this information unless further disclosure is expressly permitted by the written consent of the person to whom it pertains or is authorized by law. A general authorization for the release of medical or other information is not sufficient for this purpose. Hospital accepts no responsibility if the information is made available to any other person, INCLUDING THE PATIENT. Interpretation Summary * Name: TATYANA JUAREZ Study Date: 09/11/2017 01:07 PM BP: 118/80 mmHg * Patient Location: [facility] [place] HR: 90 * : 1975 (M/d/yyyy) Gender: Male Height: 70 in * Age: 42 yrs Ethnicity: CA Weight: 264 lb * Ordering Physician: Kesha Dwyer * Referring Physician: Kesha Dwyer * Performed By: Sergei Cantu RCS * * Reason For Study: SOB, Cough * BSA: 2.3 m2 * -- Conclusions -- * There is mild concentric left ventricular hypertrophy. * Left ventricular systolic function is normal. Procedure Details * A complete two-dimensional transthoracic echocardiogram was performed (2D, M-mode, Doppler and color flow Doppler). Left Ventricle * The left ventricle is normal in size. * There is mild concentric left ventricular hypertrophy. * Left ventricular systolic function is normal. * Ejection Fraction = 60-65%. * The left ventricular wall motion is normal. Right Ventricle * The right ventricle is normal in size and function. Atria * The left atrial size is normal. * Right atrial size is normal. Mitral Valve * The mitral valve is grossly normal. * There is no mitral regurgitation noted. Tricuspid Valve * The tricuspid valve is not well visualized, but is grossly normal. * Significant tricuspid regurgitation is absent. Aortic Valve * The aortic valve is normal in structure and function. * The aortic valve is trileaflet. * No hemodynamically significant valvular aortic stenosis. * There is no significant aortic regurgitation. Great Vessels * The aortic root is normal size. Pericardium/Pleural * There is no pericardial effusion. Great Vessels * Normal inferior vena cava diameter and respiratory variation suggests normal central venous pressure. MMode 2D Measurements and Calculations IVSd 1.0 cm IVSs 1.2 cm LVIDd 4.5 cm LVIDs 2.9 cm LVPWd 1.0 cm LVPWs 1.3 cm IVS/LVPW 1.0 FS 36.9 % EDV(Teich) 94.9 ml ESV(Teich) 31.4 ml EF(Teich) 66.9 % EDV(cubed) 94.2 ml ESV(cubed) 23.7 ml EF(cubed) 74.9 % % IVS thick 17.1 % % LVPW thick 24.9 % LV mass(C)d 158.7 grams LV mass(C)dI 67.6 grams/m\S\2 LV mass(C)s 106.2 grams LV mass(C)sI 45.2 grams/m\S\2 SV(Teich) 63.4 ml SI(Teich) 27.0 ml/m\S\2 SV(cubed) 70.5 ml SI(cubed) 30.0 ml/m\S\2 Ao root diam 3.5 cm Ao root area 9.9 cm\S\2 ACS 1.7 cm LA dimension 3.9 cm asc Aorta Diam 2.9 cm LA/Ao 1.1 LVAd ap4 32.0 cm\S\2 LVLd ap4 8.2 cm EDV(MOD-sp4) 103.0 ml LVAs ap4 14.4 cm\S\2 LVLs ap4 6.2 cm ESV(MOD-sp4) 29.8 ml EF(MOD-sp4) 71.1 % LVAd ap2 27.3 cm\S\2 LVLd ap2 8.6 cm EDV(MOD-sp2) 72.9 ml LVAs ap2 14.9 cm\S\2 LVLs ap2 7.7 cm ESV(MOD-sp2) 25.1 ml EF(MOD-sp2) 65.6 % SV(MOD-sp4) 73.2 ml SI(MOD-sp4) 31.2 ml/m\S\2 SV(MOD-sp2) 47.8 ml SI(MOD-sp2) 20.4 ml/m\S\2 Doppler Measurements and Calculations MV E max hue 66.0 cm/sec MV A max hue 56.8 cm/sec MV E/A 1.2 MV P1/2t max hue 97.3 cm/sec MV P1/2t 55.4 msec MVA(P1/2t) 4.0 cm\S\2 MV dec slope 514.0 cm/sec\S\2 MV dec time 0.22 sec Ao V2 max 139.1 cm/sec Ao max PG 7.7 mmHg Ao max PG (full) 4.6 mmHg LV V1 max PG 3.2 mmHg LV V1 max 88.8 cm/sec PA V2 max 95.3 cm/sec PA max PG 3.6 mmHg
== END | disposition home or self-care (01) ==
LOC: C.CPL 12:45
PROVIDERS: ATTEND Internal Medicine
DX: R05 Cough (principal); R06.02 Shortness of breath; R53.1 Weakness; I51.7 Cardiomegaly

== ENCOUNTER → 2017-09-14 | Outpatient (CLI) | payer OTHER ==
--- NOTE | 2017-09-14 20:24 | DIAGNOSTIC IMAGING REPORT ---
PARATHYROID IMAGING CLINICAL HISTORY: HYPERPARATHYROIDISM TECHNIQUE: This examination is performed following the administration of 20.4 mCi technetium 99m Cardiolite. Images are acquired multiphase fashion multi axially including SPECT images COMPARISON STUDY: 09/19/2016 FINDINGS: Normal salivary gland activity and thyroid at the 15 minute time interval. Delayed images at 3 hours show normal washout of tracer from the thyroid gland. There is no residual activity within the thyroid bed. The study is considered negative for parathyroid adenoma. No additional abnormal radiotracer deposition is identified. IMPRESSION: Negative study. No change from the prior exam. The above report was generated using voice recognition software. It may contain grammatical, syntax or spelling errors. Electronically signed by: Jay Allen M.D. 09/14/2017 8:23 PM Dictated Date/Time: 09/14/2017 8:21 PM
== END | disposition home or self-care (01) ==
LOC: C.NUCL 15:36
PROVIDERS: ATTEND Family Medicine
DX: E21.3 Hyperparathyroidism, unspecified (principal); E83.52 Hypercalcemia

== ENCOUNTER 2017-09-26 00:47 | Emergency (ER) | payer OTHER ==
[~2017-09-26] VITALS: Ht 177.8 cm; Wt 121.6 kg
[2017-09-26 00:51] VITALS: TEMP 36.8; Ht 177.8 cm; Wt 121.6 kg
[2017-09-26] MEDS ORDERED: DIPHTHERIA/TETANUS/PERTUSSIS 0.5 ML SYR/VIAL IM. ONE (01:30)
--- NOTE | 2017-09-26 01:40 | EMERGENCY ROOM VISIT NOTE ---
History Report prepared by Jazzmine: Jenna Staples Under the Supervision of: Dr. Jerilyn Gale D.O. First contact with patient: 00:54 Chief Complaint: WOUND INFECTION Stated Complaint: STAPH INFECTION History of Present Illness The patient is a 42 year old male who presents to the Emergency Room with complaints of a worsening wound infection starting a week ago. The patient states that he has a history of hypercalcemia. He reports that he noticed a pimple a week ago and believed that it was a deposit on the left side of his chest/shoulder. He states that he let it go for a few days, but it got bigger. He reports that it felt hard and like there was fluid in it. He states that the fluid seemed to spread under the skin. The patient reports that tonight it looked white and like it had come to a head. He states that he took the nail clipper hook to cut it open because he could not squeeze it. He reports that the only thing that came out of it was blood. He states that he is concerned about Staph because he thinks that it is infected. He states that he has had one on his neck before that he did the same thing with and it was fine. He reports that he immediately put Neosporin and hydrogen peroxide on it. He notes the may have gotten a few hairs out of it. The patient complains of difficulty breathing when he lies flat. Source of History: patient Onset: a week ago Position: other (left chest/shoulder) Quality: other (hard and fluid filled) Timing: worsening Associated Symptoms: + SOB Review of Systems See HPI for pertinent positives & negatives. Past Medical & Surgical Medical Problems: (1) Anxiety (2) Depression (3) Depression (4) Hx of gallstones (5) Hypercalcemia (6) Hypertension (7) Left ventricular enlargement (8) Manic bipolar I disorder Family History Cancer Gallbladder disease Hypertension Social History Smoking Status: Never Smoker Alcohol Use: occasionally Drug Use: none Marital Status: single Housing Status: lives alone Occupation Status: [employer] Current/Historical Medications Scheduled Amphetamine-Dextroamphetamine 10MG (Adderall 10MG), 10 MG PO DAILY@ NOON Amphetamine-Dextroamphetamine 20MG (Adderall Xr 20MG), 20 MG PO QAM Brexpiprazole (Rexulti), 4 MG PO QAM Cinacalcet (Sensipar), 30 MG PO BID Clonazepam (Klonopin), 1 MG PO QID Ergocalciferol (Vitamin D 02112 Unit), 50,000 UNITS PO WK Metformin Hcl (Glucophage), 1,000 MG PO BID Prazosin Hcl (Prazosin), 1 MG PO HS Propranolol Hcl (Propranolol Hcl), 40 MG PO TID Quetiapine Fumarate (Seroquel Xr), 600 MG PO HS Sertraline (Zoloft), 200 MG PO DAILY Allergies Coded Allergies: Chlordiazepoxide (Unverified Allergy, Unknown, ANGRY/AGGRESSIVE, 05/09/16) Physical Exam Vital Signs Date Time Temp Pulse Resp B/P (MAP) Pulse Ox O2 Delivery O2 Flow Rate FiO2 09/26/17 01:46 77 18 132/78 98 09/26/17 00:51 36.8 115 18 116/80 96 Room Air Physical Exam Chest Wall: Left superior chest wall area of erythema surrounding a skin lesion the size of a pencil eraser. Small amount of blood coming from the lesion. No obvious cellulitis. Medical Decision & Procedures Medications Administered Medications (Trade) Dose Ordered Sig/Esteban Route Start Time Stop Time Status Last Admin Dose Admin Diphtheria/ Pertussis/Tetanus Vacc (Adacel Inj) 0.5 ml ONCE ONCE IM. 09/26/17 01:30 09/26/17 01:31 DC 09/26/17 01:30 0.5 ML Procedure 0130: Ordered Adacel Inj 0.5 ml IM. ED Course 0114: Past medical records reviewed. The patient was evaluated in room A3. A complete history and physical exam was performed. I discussed findings and results with him. He verbalized agreement of the treatment plan. The patient will be discharged home. 0130: The patient requested a tetanus shot. I ordered Adacel Inj 0.5 ml IM. Medical Decision The patient is a 42 year old male who presents to the Emergency Room with complaints of a worsening wound infection starting a week ago. Differential diagnoses include skin reaction to Neosporin, cellulitis, wound abscess, allergic reaction. The patient used a metal emery board to dumont the wound on the left upper chest. This produced only blood. There was no fluctuance noted to this area on my exam. There was some mild surrounding erythema. I felt this may be secondary to a reaction to neomycin as opposed to cellulitis. I have asked the patient to stop applying Neosporin, Bactine, alcohol and peroxide to this wound. He is to keep it clean with soap and water and apply bacitracin twice a day. He should cover the wound after applying the ointment. The patient was given a prescription for oral antibiotics to start after approximately 48 hours if the wound is not improving. He can start them sooner if the erythema seems to be spreading out from the wound or if he develops a fever. Medication Reconcilliation Current Medication List: was personally reviewed by me Blood Pressure Screening Patient's blood pressure: Normal blood pressure Blood pressure disposition: Did not require urgent referral Impression Primary Impression: Carbuncle of chest wall Scribe Attestation The scribe's documentation has been prepared under my direction and personally reviewed by me in its entirety. I confirm that the note above accurately reflects all work, treatment, procedures, and medical decision making performed by me. Departure Information Dispostion Home / Self-Care Referrals Bradley Aden D.O. (PCP) Forms HOME CARE DOCUMENTATION FORM, IMPORTANT VISIT INFORMATION, WORK / SCHOOL INSTRUCTIONS Patient Instructions My [facility] Additional Instructions Apply bacitracin twice a day after you wash it with soap and water. Watch the skin lesion closely Avoid neosporin, bactine, alcohol, and hydrogen peroxide. If the would remains red, the redness spreads outward, or you develop a fever, start the antibiotic
[2017-09-26 01:46] VITALS: BP 132/78; PULSE 77; O2SAT 98
== END 2017-09-26 01:47 | disposition home or self-care (01) ==
LOC: C.EDB 00:48 → C.EDA 01:47
DX: L02.233 Carbuncle of chest wall (principal); F41.9 Anxiety disorder, unspecified; F32.9 Major depressive disorder, single episode, unspecified; F30.9 Manic episode, unspecified; I10 Essential (primary) hypertension; Z79.899 Other long term (current) drug therapy; Z88.8 Allergy status to other drugs, medicaments and biological substances

== ENCOUNTER → 2017-09-28 | Outpatient (CLI) | payer OTHER ==
--- NOTE | 2017-09-29 06:37 | PAP/PSG TECHNICIAN REPORT ---
[facility] Voicer Polysomnogram Report Study name: None Report date: 09/29/2017 Study date: 09/28/2017 Referring Physician: Dr.Michael Aden Name: TATYANA JUAREZ Interpreting Physician: Markus Suresh M.D. Date of : 1975 Voicer: Lexie Mejia, PSGT. Sex: Male Age: 42 StudyType: PSG Weight: 271 lbs Height: 42 years, Height 5' 10" BMI: 38.88 Medications: Klonopin, Metformin, Seroquel, Valsartan, Vibryd, Vit.-d3, Flonase. Patient History 42 yr. old male presents for a titration sleep study. Patient has an AHI of 10.1, he has a oral appliance but it didn't work for him , so he will now try C-pap. Parameters Monitored NPSG: E1-M2, E2-M1, Fp1-M2, Fp2-M1, F3-M2, F4-M2, F4-M1, C3-M2, C4-M2, C4-M1, O1-M2, O2-M2, O2-M1, T3-M2, T4-M1, P3-M2, P4-M1, CHIN1, CHIN2, HR, EKG, Legs, PFLOW, SNOR, FLOW, CFLOW, Tidal Volume, THOR, ABDO, SpO2, PLTH, CPRESS, ETCO2 Wave, ETCO2, pH Sleep Architecture Sleep Stages Time at Lights Off 9:29:51 PM STAGES Time (min.) TST (%) Time at Lights On 6:07:21 AM Wake 159.0 -- Total Recording Time (TRT) 517.50 min. N1 35.5 10 Total Sleep Period (TSP) 407.5 min. N2 277.5 77 Total Sleep Time (TST) 358.5min. N3 0.0 0 Awake Time 159.0 min. REM 45.5 13 Wake after Sleep Onset 49.0 min. Sleep Efficiency (SE) 69 % Sleep Onset Latency (JAELYN) 110.0 min. Number of Stage 1 Shifts None Awakenings 11 Stage Changes 29 Number of REM periods 1 REM 45.5 13 REM Latency 362.0 min. NREM 313.0 87 Body Position Analysis Supine Right Left Side Prone Vertical Total Sleep Time (min.) 166.2 186.8 38.4 225.28 0.0 0.0 Total Sleep Time (%) 37% 52% 11% 63 0% N/A% Total Sleep Time REM (min.) 0.0 45.5 0.0 None 0.0 0.0 Total Sleep Time NREM (min.) 133.2 141.3 38.4 None 0.0 0.0 Intermittent Wake (min.) 33.0 105.5 20.5 None 0.0 0.0 Total Sleep Period (%) 40% None None None None None Arousals Myoclonus (PLM) * Events Count Index Events Count Index Spontaneous 17 3 Events Awake (PLMW) 0 0.0 Respiratory 1 0.2 Events Asleep w/ Arousal (PLMA) 7 1.2 PLM 7 1 Events Asleep w/o Arousal (PLMS) 107 17.9 Snoring 4 1 Total Asleep 114 19.1 Total 29 5 Total 114 13 Respiratory Analysis * CA OA MA CH H RERA Total Count 0 1 0 0 13 0 14 Index 0.0 0.2 0.0 0 2.2 0 2.3 Mean Duration 0.0 13.3 0.0 0.00 12.1 0.0 12.2 Longest Duration 0.0 13.3 0.0 0.00 0.0 0.0 15.7 Respiratory Event Summary Total Supine ~Supine Right Left Prone REM NREM Apneas Count 1 1 0 0 0 N/A 0 1 Index 0.2 0 0 0.0 0.0 N/A 0 0 Hypopneas (4% Desat) Count 13 4 9 9 0 N/A 2 11 Index 2.2 1.8 2 2.9 0.0 N/A 2.6 2.1 Apneas & All Hypopneas Count 14 5 9 9 0 N/A 2 12 Index 2.3 2 2 3 0 N/A 2.6 2.3 Respiratory Events (Tobacco Grader+All Hyp+RERA) Count 14 5 9 9 0 N/A 2 12 Index 2.3 2 2 2.9 0.0 N/A 2.6 2.3 Respiratory Related Arousal Count 1 5 1 1 0 N/A 0 1 Index 0.2 0 0 0 0 N/A 0 0 Snoring Analysis Supine Right Left Prone REM NREM Total Snore duration 9.7 min Snores count 104 451 0 N/A 153 402 555 Snore mean duration 1.0 Sec Snores index 47 145 0 N/A 201.8 77.1 92.9 TST with snoring (%) 2.7% Desaturation Event Summary: Minimum %SpO2 Event Count Mean/Min/Max Duration(sec.) Desaturation Index % Time In Bed > 90 41 28.5 / 5.5 / 60.0 23.8 20.4 86 - 90 49 21.8 / 4.5 / 59.5 8.8 66.0 81 - 85 4 9.8 / 6.3 / 14.0 3.5 13.5 76 - 80 0 N/A 0.0 0.1 71 - 75 0 N/A 0.0 0.0 66 - 70 0 N/A 0.0 0.0 61 - 65 0 N/A 0.0 0.0 56 - 60 0 N/A 0.0 0.0 51 - 55 0 N/A 0.0 0.0 < 50 0 N/A 0.0 0.0 Total REM NREM Awake <50% 0.0 min. 0.0 min. 0.0 min. 0.0 min. 51 - 60% 0.0 min. 0.0 min. 0.0 min. 0.0 min. 61 - 70% 0.0 min. 0.0 min. 0.0 min. 0.0 min. 71 - 80% 0.3 min. 0.0 min. 0.1 min. 0.2 min. 81 - 90% 401.2 min. 33.4 min. 302.6 min. 65.2 min. 91 - 100% 103.2 min. 12.1 min. 10.3 min. 80.8 min. Average 88 90 87 91 Minimum SpO2 78 80 78 78 Desaturation Event Index 8.0 19.8 10.4 0.0 # Desat. Events below 89% 65 12 53 0 Time(%) with Saturation below 89% 59.3 2.1 49.9 7.3 Time(min.) with Saturation below 89% 299.1 10.5 251.6 37.0 Heart Rate Analysis End Tidal CO2 Analysis Min (bpm) Max (bpm) Average (bpm) TSP (mins) % of TSP Awake 82 127 103 Above 55 mmHg 0.0 0.0 NREM 86 120 109 50-55 mmHg 0.0 0.0 REM 83 112 104 45-50 mmHg 358.5 100.0 Overall 83 120 108 40-45 mmHg 0.0 0.0 35-40 mmHg 0.0 0.0 30-35 mmHg 0.0 0.0 Average ETCO2 0.0 Supplemental O2 Values Minimum O2 level: None Value Start Time End Time Voicer Comments Bi-Level Study: Mr. Juarez slept in the right, left, supine positions. No cardiac arrhythmia or PLM's noted. No bruxism noted. Mr. Juarez slept in the right, left, and supine positions. No cardiac arrhythmia or PLM's noted. No bruxism noted. CPAP was initiated at +4 CMH2O and up-titrated to an optimal level of +5 CMH2O, which Mr. Juarez was not able to tolerate the exhale part of the titration at that time he was titrated to bi-pap. PAP initiated at an IPAP of +4 CMH2O and an EPAP of +8 CMH2O up-titrated to an optimal level of: IPAP +4 CMH2O, EPAP +8 CMH20 , which nearly eliminated all respiratory events and snoring. A Spry large Air Fit F 10, was used during titration awoke to use the restroom two times during the night. The final report will be interpreted and signed by a sleep physician. The completed physician report will then be placed in the patient medical record Therapy Event: Therapy (cm H20) 4 12/23 9/ Total Time at Pressure (min.) 49.4 360.4 107.7 TST at Pressure (min.) 0.0 250.8 107.7 # Periods 1 1 1 Sleep Onset (min.) N/A 60.6 0.0 REM Onset (min.) N/A N/A 62.2 Sleep Efficiency % 0 69 100 Wakefulness (%) 100.0 30.4 0.0 Wakefulness (min.) 49.4 109.6 0.0 NREM 1 (%) 0.0 9.9 0.0 NREM 1 (min.) 0.0 35.5 0.0 NREM 2 (%) 0.0 59.7 57.8 NREM 2 (min.) 0.0 215.3 62.2 NREM 3 (%) 0.0 0.0 0.0 NREM 3 (min.) 0.0 0.0 0.0 REM (%) 0.0 0.0 42.2 REM (min.) 0.0 0.0 45.5 # Arousals N/A 18 11 Arousal Index N/A 4.3 6.1 # Snore N/A 186 369 Snore Index N/A 44.5 205.6 AHI N/A 1.9 3.3 AHI Supine N/A 2.1 2.6 AHI Non-Supine N/A 1.8 3.9 NREM AHI N/A 1.9 3.9 REM AHI N/A N/A 2.6 RDI N/A 1.9 3.3 # Obstructive N/A 1 0 # Central Ap N/A 0 0 # Mixed N/A 0 0 # Hypopneas N/A 7 6 RERAS N/A 0 0 Total Respiratory Events N/A 8 6 Time Below SpO2 89.00% (min.) 0.0 214.4 47.8 Mean NREM SpO2 (%) N/A 87 88 Mean REM SpO2 (%) N/A N/A 90 Mean Sleep SpO2 (%) N/A 87 89 Min NREM SpO2 (%) N/A 82 78 Min REM SpO2 (%) N/A N/A 80 Position Supine (min.) 0.0 86.3 46.9 Position Non-supine (min.) 0.0 164.5 60.8 LM Index Sleep N/A 23.4 8.9 LM Index NREM N/A 23.4 5.8 LM Index REM N/A N/A 13.2 Mean Heart Rate (bpm) N/A 110 104 Min Heart Rate (bpm) N/A 93 83
--- NOTE | 2017-09-29 12:26 | POLYSOMNOGRAPH REPORT ---
CLINICAL DATA: A 42-year-old male with BMI of 38.[address] Aden and me. He has mild sleep apnea and has an AHI of 10. He has an oral appliance, but it has not been effective and it is too uncomfortable. He is referred for a CPAP titration study. SLEEP ARCHITECTURE: Total sleep period was 407.5 minutes. Total sleep time was 358.5 minutes divided between 313 minutes of non-REM sleep and 45.5 minutes of REM sleep. Sleep onset latency was delayed at 110 minutes. REM latency was delayed at 362 minutes. Sleep efficiency was reduced at 69%. Wake after sleep onset was 49 minutes. Sleep consisted of stage N1 10%, stage N2 77%, REM 13%. AROUSAL DATA: 29 arousals were recorded for an index of 5 per hour. PLM DATA: Mildly elevated limb movements during sleep were noted. There were 114 limb movements during sleep noted for an index of 19 per hour with arousal index of 1.2 per hour. RESPIRATORY DATA: The AHI was 2.3. There was 1 obstructive apneic episode, 13.3 seconds in duration. There were 13 hypopneic episodes with the mean duration of 12 seconds. OXIMETRY DATA: Nocturnal hypoxemia was seen. Oxygen everardo was 78% during non-REM sleep. Mean saturation was 88%. EKG: Heart rates ranged from 83 to 120 beats per minute. No arrhythmias were noted. SPRAYER HAND'S COMMENTS: The patient slept in the right, left, and supine positions. CPAP was started and was titrated up to 5 cm water pressure, but he was having difficulty tolerating it, so he was switched to BIPAP 8/4 using ResMed large AirFit F10 mask. He was eventually titrated up to BIPAP 9/4. On his final pressure setting, he slept for 107.7 minutes with an AHI of 3. IMPRESSION: Mild obstructive sleep apnea corrected with BiPAP, inspiratory pressure 9, expiratory pressure 4. ResMed large AirFit F10 mask. RECOMMENDATIONS: The patient should be started on the above noted BiPAP regimen and seen back in followup within 90 days to document the same in compliance. [facility]
== END | disposition home or self-care (01) ==
LOC: C.NEUR 20:00
PROVIDERS: ATTEND Family Medicine
DX: G47.30 Sleep apnea, unspecified (principal)

== ENCOUNTER → 2017-10-03 | Outpatient (CLI) | payer OTHER ==
[~2017-10-03] VITALS: Ht 177.8 cm; Wt 121.3 kg
[2017-10-03 14:32] VITALS: BP 118/63; PULSE 98; Ht 177.8 cm; Wt 121.3 kg
== END | disposition home or self-care (01) ==
LOC: C.NEUR 12:55
PROVIDERS: ATTEND Internal Medicine Pulmonary Disease
DX: G47.33 Obstructive sleep apnea (adult) (pediatric) (principal); E66.9 Obesity, unspecified; Z68.38 Body mass index [BMI] 38.0-38.9, adult; R53.83 Other fatigue; F30.9 Manic episode, unspecified; R40.0 Somnolence; F41.9 Anxiety disorder, unspecified; E11.9 Type 2 diabetes mellitus without complications; I10 Essential (primary) hypertension

== ENCOUNTER 2019-10-31 09:44 | Inpatient (IN) ==
[2019-10-31 10:30] LABS: Appearance Urine Clear (Clear); Bilirubin Urine Negative (Negative); Blood Urine Negative (Negative); Color Urine Yellow; Glucose Urine UA Negative (Negative); Ketones Urine Negative (Negative); Leukocyte Esterase Urine Negative (Negative); Nitrite Urine Negative (Negative); Protein Urine Negative (Negative); Specific Gravity Urine 1.008 (1.000-1.030); Urobilinogen Urine Negative (Negative)
[2019-10-31 10:52] LABS: Amphetamines+Metham, Urine Neg (Neg); Barbiturates, Urine Neg (Neg); Benzodiazepine, Urine Pos (Neg); Cocaine, Urine Neg (Neg); MDMA (Ecstacy), Urine Neg (Neg); Methadone, Urine Neg (Neg); Opiate, Urine Neg (Neg); Phencyclidine, Urine Neg (Neg)
[2019-10-31 11:00] LABS: Basophils # (auto) 0.02 K/uL (0-0.2); Basophils % (auto) 0.4 %; Eosinophils # (auto) 0.21 K/uL (0-0.5); Eosinophils % (auto) 3.7 %; Hematocrit (blood only) 41.1 % (42-52); Hemoglobin 14.2 g/dL (14.0-18.0); Immature Granulocytes # (auto) 0.01 K/uL (0.00-0.02); Immature Granulocytes % (auto) 0.2 %; Lymphocytes # (auto) 1.99 K/uL (1.2-3.4); Lymphocytes % (auto) 35.3 %; Mean Corpuscular Hemoglobin 30.7 pg (25-34); Mean Corpuscular Hgb Conc 34.5 g/dL (32-36); Mean Corpuscular Volume 88.8 fL (80-100); Mean Platelet Volume 10.2 fL (7.4-10.4); Monocytes % (auto) 7.1 %; Neutrophils % (auto) 53.3 %; Platelet Count 235 K/uL (130-400); RDW Coefficient of Variation 13.2 % (11.5-14.5); RDW Standard Deviation 42.3 fL (36.4-46.3); Red Blood Count 4.63 M/uL (4.7-6.1); White Blood Count 5.63 K/uL (4.8-10.8)
[2019-10-31] MEDS ORDERED: cloNIDine HCL 0.1 MG TAB PO ONE (11:15)
[2019-10-31 11:17] LABS: Albumin Level 4.3 gm/dl (3.4-5.0); BUN Creatinine Ratio 8.3 (10-20); Calcium 9.7 mg/dl (8.5-10.1); Creatinine Clr Calc Pharmacy 91.1 ml/min; Est GFR (African American) 79.5; Est GFR (Non-African American) 68.6
--- NOTE | 2019-10-31 11:23 | Emergency Department Note ---
Impression & Plan Anxiety, Elevated LFTs, Mood disorder, Feeling suicidal, Fatty liver ED Provider Note Provider: Azeem Stafford MD DATE OF SERVICE: 10/31/2019 CHIEF COMPLAINT: Anxious, depression HISTORY OF PRESENT ILLNESS: Patient is a 44-year-old gentleman with a history of mood disorder, OCD, obesity, sleep apnea, GERD, diabetes (diet-controlled), fatty liver, elevated LFTs presenting today for evaluation of worsening anxiety symptoms. Patient states that he was seen here a week or 2 ago for similar but felt comfortable to go home. Has been working in the outpatient setting with his outpatient counselor and psychiatrist and has been on multiple medications without real improvement. Patient states he been using benzodiazepines more recently to help with anxiety attacks. Not sleeping well. Patient states he had some suicidal thoughts but not currently. No attempt reported recently. Denies any HI. Variable number sometimes in the tens of panic attacks a day. Denies any new stresses beyond the current pandemic. Denies real chest pain or shortness of breath. Denies headache or new trauma. Denies fever. States he does have some racing thoughts and intrusive thoughts. Patient has prior inpatient stays and actually refuses to go back to the [facility]. REVIEW OF SYSTEMS: A total of 10 review of systems was obtained and negative except as stated above in the HPI. PAST MEDICAL HISTORY: As noted above and uses a CPAP machine MEDICATIONS: Reviewed reported medication list including Wellbutrin, Klonopin, diazepam, valsartan, lamotrigine SOCIAL HISTORY: Denies alcohol use or smoking. Patient single lives by himself. Has been working on completing his undergraduate studies, initially from [place] PHYSICAL EXAM: GENERAL: alert and oriented in no acute distress on stretcher Head: normocephalic and atraumatic EYES: No injection, discharge or icterus. ENT: Mucous membranes pink and moist. LUNGS: Airway patent. No retractions. Breath sounds clear HEART: Regular rate and rhythm. No chest wall tenderness ABDOMEN: Soft and non-tender, without guarding or rebound. No masses. SKIN: Acyanotic, warm, dry, without rashes EXTREMITIES: Without swelling, tenderness or deformity NEUROLOGICAL: No focal deficits. No aphasia. No facial droop or slurred speech. Ambulatory. Psych: Some passive SI but denies currently to myself. Appears anxious. Ports racing thoughts. Flat affect. Denies HI at this time. Patient's hypertension was referred to the PCP HOSPITAL COURSE: 1030 Patient was first seen and H&P performed. [address]5 patient signed out to Dr. oropeza awaiting placement. Patient's laboratory studies and imaging reviewed. Differential includes Mood disorder, infection, hypoglycemia, electrolyte abnormalities, cardiac sources, intracerebral event, toxicologic, trauma, neurologic, as well as other pathologies. IMPRESSION/MEDICAL DECISION MAKING: Patient presents with complaint of worsening anxiety and depression issues. Denies acute SI or HI at this time. Trial of outpatient after recent evaluation in the ER is noted. Patient later states he is feeling more anxious and requests clonidine. Repeat blood pressure was noted to be in the 120s systolica lly. States the clonidine has helped him significantly the past. Given a one- time small dose of this. Medical clearance laboratory studies were completed. Laboratory studies show evidence of elevated AST and ALT. No bilirubin elevation. Alk phos normal. Patient has follow-up with GI for elevate LFTs in the past. Prior cholecystectomy. No abdominal symptoms. Patient reports no alcohol usage. Has had prior hepatitis evaluation. Prior liver imaging has been completed last in the fall with a liver CT in the showing fatty liver change. Patient's asymptomatic and has been following for chronic LFT issues in the past. History of pancreatitis report I did complete a lipase today. This is not significant elevated. The outpatient setting GI is recommended diet control and weight loss to monitor his fatty liver and diabetes which is improved. He will continue to follow-up in the outpatient setting regarding these LFT changes. No Tylenol elevation noted on labs. Patient to the psychiatric immigration case manager does relay thoughts of suicide as well as 2 different plans. Patient told her that he plan to either overdose on his medications or use his car to harm himself. Given this again feel that psychiatric inpatient treatment would be beneficial. Patient states he has responded favorably to the clonidine. 3 S. is evaluating for possible inpatient admission here. Signed out to Dr. oropeza awaiting bed placement. DIAGNOSIS: Anxiety, suicidal thoughts, elevated LFTs DISPOSITION: Signed out to my colleague pending psychiatric acceptance Past Med/Surg History Medical History (Updated 10/31/19 @ 15:15 by Azeem Stafford M.D.) Acute cholecystitis (Resolved) Carbuncle of chest wall (Resolved) Choledocholithiasis (Resolved) Cholelithiasis (Resolved) Dysphagia (Resolved) Gastritis (Resolved) History of acute pancreatitis (Resolved) History of ECG 25-FEB-2018 showed sinus tachycardia rate 101, otherwise normal ECG. When compared with ECG of 25-JAN-2018, No significant change was found Hypercalcemia (Resolved) Panic anxiety syndrome Sinus tachycardia (Resolved) Vitamin D deficiency (Inactive) Surgical History (Updated 08/23/19 @ 12:06 by HALEY Enriquez) History of biliary duct stent placement (Resolved) History of esophagogastroduodenoscopy (EGD) (05/2015) Hx of cholecystectomy (Resolved) Hx of colonoscopy Social History Preferred Language: Czech Communication Ability: Effective Visual Impairment: No Limitations Electric Range Preparer Required: No Beliefs That Will Affect Care: None marital status: Single Current Living Situation: Alone current occupational status: student Feels Safe at Home: Yes Smoking Status: Never smoker Second Hand Exposure: No ; Hx Alcohol Use: No Hx Substance Use: No Allergies Allergies Allergy/AdvReac Type Severity Reaction Status Date / Time chlordiazepoxide AdvReac Intermediate ANGRY/AGGRE Verified 10/19/19 11:13 SSIVE nefazodone [From Serzone] AdvReac Intermediate panic Verified 10/19/19 11:13 attacks dust mites Allergy Unknown Unknown Uncoded 10/19/19 11:13 Home Meds Home Medications Medication Instructions Recorded Confirmed bupropion HCl 150 mg PO DAILY 10/31/19 10/31/19 clonazepam 0.5 mg PO TID PRN 10/31/19 10/31/19 diazepam [Valium] 10 mg PO TID 10/31/19 10/31/19 fluticasone propionate 1 spray INTRANASAL DAILY 10/31/19 10/31/19 lamotrigine 100 mg PO BID 10/31/19 10/31/19 valsartan 80 mg PO DAILY 10/31/19 10/31/19 Results & Data (ED) Vital Signs Vital Signs - 24 hr 10/31/19 10:07 10/31/19 11:13 10/31/19 12:46 Temperature 37.4 C Temperature Source Oral Pulse Rate 110 H Pulse Rate [Finger] 104 H 107 H Respiratory Rate 20 18 18 Respiratory Effort / Characteristics Non-Labored Spontaneous Non-Labored Spontaneous Respiratory Depth Normal Normal Respiratory Pattern Regular Regular Blood Pressure 114/74 Blood Pressure [Right Arm] 120/83 109/67 Blood Pressure Mean 87 Blood Pressure Mean [Right Arm] 95 81 Blood Pressure Position [Right Arm] Sitting Sitting Pulse Oximetry 97 97 98 Oxygen Delivery Method Room Air Room Air Sepsis Recent Fever Within 48 Hours No Sepsis New/Unexplained Change in Mental Status No Sepsis Action Taken by Nursing No Action Required Laboratory Data Result diagrams: 10/31/19 10:42 10/31/19 10:42 Lab Results 10/31/19 10/31/19 10/31/19 Range/Units 10:17 10:17 10:42 WBC 5.63 (4.8-10.8) K/uL RBC 4.63 L (4.7-6.1) M/uL Hgb 14.2 (14.0-18.0) g/dL Hct 41.1 L (42-52) % MCV 88.8 (80-100) fL MCH 30.7 (25-34) pg MCHC 34.5 (32-36) g/dL RDW Std Deviation 42.3 (36.4-46.3) fL RDW Coeff of Eileen 13.2 (11.5-14.5) % Plt Count 235 (130-400) K/uL MPV 10.2 (7.4-10.4) fL Immature Gran % (Auto) 0.2 % Neut % (Auto) 53.3 % Lymph % (Auto) 35.3 % Butts % (Auto) 7.1 % Eos % (Auto) 3.7 % Baso % (Auto) 0.4 % Immature Gran # (Auto) 0.01 (0.00-0.02) K/uL Neut # (Auto) 3.00 (1.4-6.5) K/uL Lymph # (Auto) 1.99 (1.2-3.4) K/uL Butts # (Auto) 0.40 (0.11-0.59) K/uL Eos # (Auto) 0.21 (0-0.5) K/uL Baso # (Auto) 0.02 (0-0.2) K/uL Sodium (136-145) mmol/L Potassium (3.5-5.1) mmol/L Chloride (98-107) mmol/L Carbon Dioxide (21-32) mmol/L Anion Gap (3-11) BUN (7-18) mg/dl Creatinine (0.6-1.4) mg/dl Est Cr Clr Drug Dosing ml/min Est GFR ( Amer) Est GFR (Non-Af Amer) BUN/Creatinine Ratio (10-20) Glucose (70-99) mg/dl Calcium (8.5-10.1) mg/dl Total Bilirubin (0.2-1) mg/dl AST (15-37) U/L ALT (12-78) U/L Alkaline Phosphatase (45-117) U/L Total Protein (6.4-8.2) gm/dl Albumin (3.4-5.0) gm/dl Globulin (2.5-4.0) gm/dl Albumin/Globulin Ratio (0.9-2) Lipase (73-393) U/L TSH (0.300-4.500) uIu/ml Urine Color Yellow Urine Appearance Clear (Clear) Urine pH 7.0 (4.5-7.5) Ur Specific [place] 1.008 (1.000-1.030) Urine Protein Negative (Negative) Urine Glucose (UA) Negative (Negative) Urine Ketones Negative (Negative) Urine Blood Negative (Negative) Urine Nitrite Negative (Negative) Urine Bilirubin Negative (Negative) Urine Urobilinogen Negative (Negative) Ur Leukocyte Esterase Negative (Negative) Salicylates (2.8-20) mg/dl Urine Opiates Screen Neg (Neg) Ur Methadone, Qual Neg (Neg) Acetaminophen (10-30) ug/ml Urine Barbiturates Neg (Neg) Ur Phencyclidine (PCP) Neg (Neg) U Amphetamin/Meth Scrn Neg (Neg) MDMA (Ecstasy) Screen Neg (Neg) U Benzodiazepines Scrn Pos H (Neg) Ur Cocaine Metabolite Neg (Neg) U Marijuana (THC) Screen Neg (Neg) Ethyl Alcohol mg/dL (0-3) mg/dl 10/31/19 10/31/19 10/31/19 Range/Units 10:42 10:42 10:42 WBC (4.8-10.8) K/uL RBC (4.7-6.1) M/uL Hgb (14.0-18.0) g/dL Hct (42-52) % MCV (80-100) fL MCH (25-34) pg MCHC (32-36) g/dL RDW Std Deviation (36.4-46.3) fL RDW Coeff of Eileen (11.5-14.5) % Plt Count (130-400) K/uL MPV (7.4-10.4) fL Immature Gran % (Auto) % Neut % (Auto) % Lymph % (Auto) % Butts % (Auto) % Eos % (Auto) % Baso % (Auto) % Immature Gran # (Auto) (0.00-0.02) K/uL Neut # (Auto) (1.4-6.5) K/uL Lymph # (Auto) (1.2-3.4) K/uL Butts # (Auto) (0.11-0.59) K/uL Eos # (Auto) (0-0.5) K/uL Baso # (Auto) (0-0.2) K/uL Sodium 137 (136-145) mmol/L Potassium 4.0 (3.5-5.1) mmol/L Chloride 104 (98-107) mmol/L Carbon Dioxide 26 (21-32) mmol/L Anion Gap 7.0 (3-11) BUN 10 (7-18) mg/dl Creatinine 1.25 (0.6-1.4) mg/dl Est Cr Clr Drug Dosing 91.1 ml/min Est GFR ( Amer) 79.5 Est GFR (Non-Af Amer) 68.6 BUN/Creatinine Ratio 8.3 L (10-20) Glucose 135 H (70-99) mg/dl Calcium 9.7 (8.5-10.1) mg/dl Total Bilirubin 0.7 (0.2-1) mg/dl AST 464 H (15-37) U/L ALT 724 H (12-78) U/L Alkaline Phosphatase 112 (45-117) U/L Total Protein 8.3 H (6.4-8.2) gm/dl Albumin 4.3 (3.4-5.0) gm/dl Globulin 4.0 (2.5-4.0) gm/dl Albumin/Globulin Ratio 1.1 (0.9-2) Lipase (73-393) U/L TSH 0.448 (0.300-4.500) uIu/ml Urine Color Urine Appearance (Clear) Urine pH (4.5-7.5) Ur Specific [place] (1.000-1.030) Urine Protein (Negative) Urine Glucose (UA) (Negative) Urine Ketones (Negative) Urine Blood (Negative) Urine Nitrite (Negative) Urine Bilirubin (Negative) Urine Urobilinogen (Negative) Ur Leukocyte Esterase (Negative) Salicylates < 1.7 L (2.8-20) mg/dl Urine Opiates Screen (Neg) Ur Methadone, Qual (Neg) Acetaminophen < 2 L (10-30) ug/ml Urine Barbiturates (Neg) Ur Phencyclidine (PCP) (Neg) U Amphetamin/Meth Scrn (Neg) MDMA (Ecstasy) Screen (Neg) U Benzodiazepines Scrn (Neg) Ur Cocaine Metabolite (Neg) U Marijuana (THC) Screen (Neg) Ethyl Alcohol mg/dL < 3.0 (0-3) mg/dl 10/31/19 Range/Units 10:42 WBC (4.8-10.8) K/uL RBC (4.7-6.1) M/uL Hgb (14.0-18.0) g/dL Hct (42-52) % MCV (80-100) fL MCH (25-34) pg MCHC (32-36) g/dL RDW Std Deviation (36.4-46.3) fL RDW Coeff of Eileen (11.5-14.5) % Plt Count (130-400) K/uL MPV (7.4-10.4) fL Immature Gran % (Auto) % Neut % (Auto) % Lymph % (Auto) % Butts % (Auto) % Eos % (Auto) % Baso % (Auto) % Immature Gran # (Auto) (0.00-0.02) K/uL Neut # (Auto) (1.4-6.5) K/uL Lymph # (Auto) (1.2-3.4) K/uL Butts # (Auto) (0.11-0.59) K/uL Eos # (Auto) (0-0.5) K/uL Baso # (Auto) (0-0.2) K/uL Sodium (136-145) mmol/L Potassium (3.5-5.1) mmol/L Chloride (98-107) mmol/L Carbon Dioxide (21-32) mmol/L Anion Gap (3-11) BUN (7-18) mg/dl Creatinine (0.6-1.4) mg/dl Est Cr Clr Drug Dosing ml/min Est GFR ( Amer) Est GFR (Non-Af Amer) BUN/Creatinine Ratio (10-20) Glucose (70-99) mg/dl Calcium (8.5-10.1) mg/dl Total Bilirubin (0.2-1) mg/dl AST (15-37) U/L ALT (12-78) U/L Alkaline Phosphatase (45-117) U/L Total Protein (6.4-8.2) gm/dl Albumin (3.4-5.0) gm/dl Globulin (2.5-4.0) gm/dl Albumin/Globulin Ratio (0.9-2) Lipase 142 (73-393) U/L TSH (0.300-4.500) uIu/ml Urine Color Urine Appearance (Clear) Urine pH (4.5-7.5) Ur Specific [place] (1.000-1.030) Urine Protein (Negative) Urine Glucose (UA) (Negative) Urine Ketones (Negative) Urine Blood (Negative) Urine Nitrite (Negative) Urine Bilirubin (Negative) Urine Urobilinogen (Negative) Ur Leukocyte Esterase (Negative) Salicylates (2.8-20) mg/dl Urine Opiates Screen (Neg) Ur Methadone, Qual (Neg) Acetaminophen (10-30) ug/ml Urine Barbiturates (Neg) Ur Phencyclidine (PCP) (Neg) U Amphetamin/Meth Scrn (Neg) MDMA (Ecstasy) Screen (Neg) U Benzodiazepines Scrn (Neg) Ur Cocaine Metabolite (Neg) U Marijuana (THC) Screen (Neg) Ethyl Alcohol mg/dL (0-3) mg/dl Administered Medications Discontinued Medications Clonidine HCl (Catapres) 0.1 mg PO NOW ONE Stop: 10/31/19 11:16 Last Admin: 10/31/19 11:24 Dose: 0.1 mg Documented by: [id number] Discharge Plan Visit Data Chief Complaint: Mental Health Evaluation Stated Complaint: MENTAL HEALTH ED Provider: Mohan Oropeza Discharge Problem: Anxiety, Elevated LFTs, Mood disorder, Feeling suicidal, Fatty liver Forms Stand Alone Forms: My [facility], Suicide Prevention Resources Prescriptions Prescriptions: No Action bupropion HCl 150 mg Tablet Sustained-Release 12 Hr 150 mg PO DAILY RF: 0 valsartan 80 mg Tablet 80 mg PO DAILY RF: 0 clonazepam 0.5 mg Tablet 0.5 mg PO TID PRN (Reason: Anxiety) RF: 0 lamotrigine 100 mg Tablet 100 mg PO BID RF: 0 fluticasone propionate 50 mcg/actuation [place],Suspension 1 spray INTRANASAL DAILY RF: 0 diazepam [Valium] 10 mg tablet 10 mg PO TID RF: 0 ipratropium bromide 0.03 % [place],Non-Aerosol 2 spray INTRANASAL BID PRN (Reason: Congestion) RF: 0 Referrals Referrals: Bradley Aden [Primary Care Provider] -
[2019-10-31 11:29] LABS: Albumin Globulin Ratio 1.1 (0.9-2); Bilirubin,Total 0.7 mg/dl (0.2-1); Thyroid Stimulating Hormone 0.448 uIu/ml (0.300-4.500); Total Protein 8.3 gm/dl (6.4-8.2)
[2019-10-31 11:58] LABS: Acetaminophen < 2 ug/ml (10-30); Salicylate < 1.7 mg/dl (2.8-20)
--- NOTE | 2019-10-31 15:19 | Emergency Department Note ---
ED Visit Note The patient was taken in signout from Dr. Stafford at the change of shift. Please see that note for details. The patient was pending a psychiatric admission/placement for suicidal ideation. In brief the patient is a 44-year-old gentleman with a past medical history of bipolar disorder/depression and suicidal ideation, history of fatty liver, hypertension, diabetes who presents emergency department with suicidal ideation interested in voluntary placement. Blood work was considered to be within patient's baseline range and the patient was medically cleared. Accepted to [facility]. 201 signed. .
[2019-10-31] MEDS ORDERED: ALUMINUM/MAGNESIUM SUSP 30 ML UDC PO PRN (15:28)
[2019-10-31] MEDS ORDERED: MAGNESIUM HYDROXIDE SUSP 30 ML UDC PO PRN (15:28)
[2019-10-31] MEDS ORDERED: ACETAMINOPHEN 325 MG TAB PO PRN (15:28)
[2019-10-31] MEDS ORDERED: BISMUTH SUBSALICYLATE PER ML OMNICELL CHARGE PO PRN (15:28)
[2019-10-31] MEDS ORDERED: clonazePAM 0.5 MG TAB PO PRN (15:37)
[2019-10-31] MEDS: lamoTRIgine 100 MG TAB PO SCH (20:59)
[2019-10-31] MEDS: SODIUM CHLORIDE 0.65% NA SOLN 45 ML (OCEAN) PRN (21:57)
[2019-11-01] MEDS ORDERED: BuPROPion SR 150 MG TABCR PO SCH (09:00)
[2019-11-01] MEDS: VALSARTAN 80 MG TAB PO SCH (10:18)
[2019-11-01] MEDS: FLUTICASONE PROPIONATE NA SPR 16 GM BTL SCH (10:19)
[2019-11-01] MEDS: lamoTRIgine 100 MG TAB PO SCH ×2 (10:21→21:32)
--- NOTE | 2019-11-01 10:32 | History & Physical ---
Date of Service November 01, 2019 Impression / Recommendations Impression This 44-year-old man was admitted through the emergency room because of complaints of worsening anxiety, depression, and suicidal thoughts. The record indicates that in the past he has been given a diagnosis of bipolar disorder, but at admission the patient does not provide clinical data that would be consistent with a diagnosis of juvenal or hypomania in the past. According the patient, he feels that his main problem has always been anxiety. He notes that he is anxious even when he is not feeling particularly depressed, and he feels that the anxiety precipitates depression, largely because it interferes with his sleep and causes him to feel as if he cannot progress. He also identifies social phobia, which he says causes him to isolate and that, in turn, makes him feel "lonely." He comes across as being somewhat passive and dependent. For example, he acknowledges that he has sleep apnea and is supposed to use CPAP at night, but does not. Yet he complains of intermittent insomnia and poor quality sleep in such a manner as to suggest that the ability to address this lies outside his own control. Based on the history that the patient provides he has not ever responded particularly well to psychiatric medications. There is a suggestion that perhaps the patient had responded at some point to sertraline and he estimates that he took this medication for as many as 5 years, but tells us that he does not feel that it was ever helpful, even at dosages of 200 mg. (He acknowledges that he declined to have his dose increased to 250 mg as recommended by his psychiatrist.) He notes that several other antidepressant medications, including but not limited to Prozac, were either ineffective or worsened his depression. He says that he was given quetiapine at 1 point, but experienced excess sedation. He adds, "it was okay for sleep, but I could not take it during the day and I always felt kind of hung over." He is not certain if he is ever taken aripiprazole as an adjunct. He does not feel that bupropion has been helpful in managing his anxiety or his depression, and it may be that bupropion is contributing to his anxiety. He notes that he has never taken Luvox as an antidepressant or as an antiobsessional medication. He tells me that although he has taken Klonopin at dosages of up to 1 mg 3 times a day to manage anxiety, he has never felt that it is particularly helpful in managing his anxiety and, to the contrary, sometimes makes him feel "fuzzy" and under less control than normal. The only medication that he endorses as having been effective in the past is clonidine. Trazodone has been attempted in the past, but at 150 mg a day did not help. 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 We discussed the fact that hypnotic medications can actually worsen his sleep apnea symptoms and we are encouraging him to adhere to the recommendation that he use CPAP at night, but he feels that he has an oral appliance that is "pretty effective." Given the above considerations, bupropion is being discontinued in favor of Luvox 50 mg at bedtime with a plan to titrate as tolerated. There is an order for Sonata 10 mg at bedtime as needed for sleep. We will also provide the patient with a low-dose of aripiprazole (5 mg a day) as an adjunct medication for Luvox and to assist with OCD symptoms. The patient states that his goal is to discontinue clonazepam during the hospital stay, and in the service of that goal I have reduced his dose of clonazepam to a dose of 0.25 mg twice a day as needed for anxiety, and I have counseled the patient to not ask for clonazepam unless he feels a spike in his anxiety. Material risks and anticipated benefits of each of his psychiatric medications were reviewed with the patient and he indicated understanding after asking several questions. He will be given a test dose of aripiprazole and clonidine this morning to evaluate his response. (1) Anxiety: 11/01/19 -The patient has been admitted to the [facility] behavioral health unit and has been placed on close observations. He has been referred for individual, group and activity therapies and will be encouraged to work on developing improved individual coping strategies. -The patient has been taught several mindfulness techniques that he may choose to use to interrupt intrusive, alien, obsessive thoughts. The patient was able to practice these during today's encounter. -He indicates that he is responded favorably to clonidine in the past. We will begin clonidine 0.1 mg twice daily standing dose for anxiety. -The patient meets criteria for several anxiety disorders, including generalized anxiety disorder, social anxiety disorder, and obsessive-compulsive disorder. We have added Luvox 50 mg a day and will titrate as indicated as a treatment for his obsessive-compulsive symptoms. (2) Elevated LFTs: 11/01/19 -The patient's elevated liver functions are noted. The patient's liver enzymes were within normal limits as recently as a month ago. This may be a medication effect, and the plan is to repeat the studies and 3 days. There is a past history of pancreatitis, cholecystitis, cholelithiasis, and choledocholithiasis," as well as a current history of fatty liver. (3) Insomnia: 11/01/19 -Patient reports that he has chronic difficulty with sleeping. He reports that he tends to fall asleep fairly well, but then awakens multiple times during the night, usually briefly, but his estimate is that he may awaken between 10 and 20 times during the night. He has a history of sleep apnea and seems to be seeking a solution other than CPAP. -The patient's insomnia clearly contributes to his depression and anxiety. We will offer him a trial of Sonata at bedtime while actively encouraging him to reconsider his decision not to use CPAP. -The patient has been educated regarding the risks associated with untreated obstructive sleep apnea. Present on Admission?: Yes (4) Obesity (BMI 30-39.9): 11/01/19 -The patient has been educated regarding the importance of weight loss, particularly with in the context of his obstructive sleep apnea. He has been advised that weight loss may help relieve symptoms of obstructive sleep apnea. -Within this context, the patient is concerned about medications that may cause weight gain. He is encouraged to apply healthy food choices and portion control, combined with regular exercise. -The patient has been placed on a low carbohydrate diet. Present on Admission?: Yes (5) Depression: 11/01/19 -Patient reports a lifelong history of intermittent, recurrent depression and says that he has not felt that he has been free of depression "for many years." His symptoms of depression reportedly include depressed mood, apathy, low self- esteem, anhedonia, and poor concentration. -Given that the patient has been tried on multiple different antidepressant medications without reported results, we will try Luvox, I medications the patient reports that he has not taken previously. It is hoped that Luvox will help both with depression and with OCD in his case. We are beginning Luvox at 50 mg at bedtime and will titrate as tolerated. -Aripiprazole is being added at 5 mg daily as an adjunct for Luvox and, also, because it may help with the patient's obsessive-compulsive features. Present on Admission?: Yes (6) Type 2 diabetes mellitus: 11/01/2019 -Patient reports that his diabetes is diet controlled. His blood sugar was somewhat elevated at admission. I have ordered a type 2 diabetes low carbohydrate diet and we will continue to monitor his blood sugars daily per waived testing. Present on Admission?: Yes Inventory Assets Strengths: Motivated to treatment and recovery. Future oriented. Needs: Reduction in anxiety, reduction in obsessive compulsive dyads, resolution of intrusive suicidal thoughts, improved individual coping strategies. Risk Factors Assessment Persistent treatment resistant psychiatric illness. Feelings of inadequacy. Social isolation. Male: Yes : Yes Do You Have Access To A Gun?: No Health Problems: Yes Mental Health Diagnoses: Yes Substance Use Disorders: No Previous Attempt: No Family History of Suicide: No Previous Psychiatric Hospitalization: Yes Hopelessness: No Smoker: No Protective Factors Assessment Hindu Beliefs: Yes : No Responsible for Young Children: No Employed: No Stable Relationships: No Supportive Family: Yes Good Rapport with Provider: Yes Absence of Any Risk Factors Above: No Psychiatric History Identifying Data TATYANA JUAREZ is a 44-year-old M who currently lives in alone in the [place] area. He has a history of a mood disorder, anxiety, and OCD. At one point he was given a diagnosis of bipolar disorder, but today he does not provide a history that would suggest he has experienced juvenal or hypomania in the past. And was admitted on 10/31/19 15:29 on a 201 voluntary agreement because of depression, anxiety, and intrusive, recurrent thoughts of suicide. Chief Complaint "Depression. Anxiety more than depression". History of Present Illness The patient is a 44-year-old man who reports a lifelong history of depression and anxiety. The record indicates that in the past he has been given a diagnosis of bipolar disorder, but currently the patient does not provide clinical data that would be consistent with a history of juvenal or hypomania. He says that he considers his "main problem" to be anxiety. He notes that the anxiety leads to poor sleep and depressed mood, but also notes that he feels anxious even when not particularly depressed. There is also history of panic attacks. Further, the patient clearly describes a history of obsessive- compulsive disorder symptoms. For example, he tells me that he feels compelled to frequently check various items, including his own appearance, and feels extremely anxious if he attempts to interrupt the compulsive behaviors. He explains, "I will get a thought that there is something wrong with my appearance, and I have to go to a mirror and check. I may have to come back multiple times in order to recheck before I can feel less anxious about it." Also, the patient describes multiple alien intrusive thoughts. The common intrusive thought is that he must rehearse what he is going to say, even in routine benign situations such as ordering food, by practicing what he is about to say repeatedly and has had before speaking. He notes that on certain occasions if he has not rehearsed what he is about to say he becomes overly anxious and finds that he is unable to speak clearly, or feels as if he is not speaking clearly. There is a history of multiple previous psychiatric hospitalizations. He tells us that he has been tried on multiple psychiatric medications and that none are particularly helpful. He also reports that he he wants to discontinue clonazepam, and notes that at one point in the past he was taking clonazepam 1 mg 3 times a day, and the hospital record indicates that 1 of his visits to the emergency room was related to benzodiazepine withdrawal (several years ago). Currently, the patient has been prescribed clonazepam 0.5 mg 3 times daily, but he notes that he is not taking it more than twice a day, and often does not take it at all. When asked why he has not stopped it, he says that he is afraid of having withdrawal. Past Psychiatric History Previous Psych History: Patient says that his symptoms of anxiety and depression began in childhood. He notes that "anxiety runs in [his] family," but that he is the only one as far as he knows to receive treatment for it. There have been several psychiatric hospitalizations and he indicates that he has been in outpatient psychiatric treatment with various providers for many years. He also indicates that he has been tried on multiple different medications and reports various complaints with each drug mention, such as lack of efficacy, weight gain, fatigue, etc. Current Psychiatric Diagnosis: Bipolar Disorder Outpatient Services: Patient is currently in outpatient treatment with both a psychiatrist and an outpatient therapist. Previous Psych Admissions: Patient reports a previous psychiatric hospitalization at [facility] "a few years ago,." He also reports that he was hospitalized on at least one occasion at [facility] in [place], [place] but that he did not have a good experience there and would refuse to return. Do You Have Access To A Gun?: No History of Previous Suicide Attempt: No Past Medication Trials: The patient reports that he has been on multiple psychiatric medications, including various antidepressants, anxiolytics, and hypnotics. Although he had some difficulty spontaneously recalling the names, when commonly prescribed psychiatric medications were mentioned to him he generally responded to each by saying that he had taken it in the past and that it was either ineffective, or caused side effects, at "maximum dosages." For example, he says that he was on Zoloft at 200 mg a day (highest dose) for a number of years, but "did not really feel it was helping." He also says that he took fluoxetine (Prozac) at various dosages that he describes as "high," but experienced excess sedation. He believes he has been on various other antidepressant medications. Zyprexa and quetiapine were described as being excessively sedating. He believes that he may have been on aripiprazole but cannot recall for certain. He also reports that he took trazodone 150 mg at bedtime without favorable benefit. Zolpidem was reportedly helpful "for a while," but then "stopped working." As above, he took clonazepam up to 1 mg 3 times a day, but has been tapering his dose and hopes to be able to discontinue clonazepam completely. He says that it does not really help that much with anxiety and often makes him feel "fuzzy and may be even more anxious." After mentioning that essentially none of the medications that he is ever tried have been effective, he does say that clonidine has been effective, but has not recently been prescribed. Other anxiolytics such as propranolol, hydroxyzine and buspirone have reportedly not been effective. At admission, his current medications included bupropion 150 mg daily, lamotrigine 100 mg twice a day, and clonazepam 0.5 mg 3 times daily as needed anxiety. Patient also reports that he takes fluticasone propionate intranasally once a day, and ipratropium Bromanate 2 sprays intranasally twice a day because of a deviated septum. Additional Notes: Patient was diagnosed with elevated parathormones in 2017. His serum calcium level currently is within normal limits. Past Head Trauma/Neuro History History of Concussion/Seizure: No Allergies Allergy/AdvReac Type Severity Reaction Status Date / Time chlordiazepoxide AdvReac Intermediate ANGRY/AGGRE Verified 10/19/19 11:13 SSIVE nefazodone [From Serzone] AdvReac Intermediate panic Verified 10/19/19 11:13 attacks dust mites Allergy Unknown Unknown Uncoded 10/19/19 11:13 Home Medications Home Medications Medication Instructions Recorded Confirmed Type bupropion HCl 150 mg PO DAILY 10/31/19 10/31/19 History clonazepam 0.5 mg PO TID PRN 10/31/19 10/31/19 History fluticasone propionate 1 spray INTRANASAL DAILY 10/31/19 10/31/19 History ipratropium bromide 2 spray INTRANASAL BID PRN 10/31/19 10/31/19 History lamotrigine 100 mg PO BID 10/31/19 10/31/19 History valsartan 80 mg PO DAILY 10/31/19 10/31/19 History Family History Family History of: Anxiety Family Mental Health History Comment: He tells me that the number of members of his family have a history of anxiety. To the best of his knowledge, none has been treated for anxiety. Alcohol History Hx of Alcohol Use Over the Past 12 Months: No AUDIT Total Score: 0 Smoking Use Have You Smoked or Used Tobacco Products in the Last 30 Days: No Smoking Status: Never smoker Substance History Hx of Prescription Med Misuse Over the Past 12 Months: No Hx of Over the Counter Med Misuse Over the Past 12 Months: No Hx of Inhalent Misuse Over the Past 12 Months: No Hx of Organic Substance Use Over the Past 12 Months: No Hx of Illegal Substances/Street Drug Use Over Past 12 Months: No Problems as a Result of Past Substance Use: None Identified Personal History Living Arrangements: Apartment Living Arrangements Comments: The patient lives alone in an apartment in [place]. 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 He is single, never , and has no children. Born In: Patient was born in [facility], but moved to [place] with his parents, his brother and his sister as a young child. He was raised by both parents in [place]. 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 When compared with ECG of 25-JAN-2018, No significant change was found Hypercalcemia (Resolved) Panic anxiety syndrome Sinus tachycardia (Resolved) Vitamin D deficiency (Inactive) Surgical History History of biliary duct stent placement (Resolved) History of esophagogastroduodenoscopy (EGD) (05/2015) Hx of cholecystectomy (Resolved) Hx of colonoscopy Family History Other Cancer Gallbladder disease Heart disease Social History Preferred Language: Wolof Communication Ability: Effective Visual Impairment: No Limitations Working Second Hand Required: No Beliefs That Will Affect Care: None (The patient tells me that he believes in God, 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 He describes a history of cholelithiasis (resolved), choledocholithiasis (resolved), cholecystectomy, gastritis (resolved), history of pancreatitis (resolved), past history of sinus tachycardia, hypercalcemia with possible elevated parathormone (2017), and type 2 diabetes diet controlled. The somatic history, review of systems, and physical examination completed by Azeem Stafford MD has been reviewed and is excepted for purposes of medical clearance to the behavioral health unit. Physical Exam Psychiatric: Orientation: alert, oriented x 3 and cooperative Apperance: appropriately dressed, appropriately groomed and appeared stated age Eye Contact: + fair eye contact Motor Behavior: + psychomotor retardation The patient's speech is somewhat slowed. He does speak spontaneously and in complete sentences. Affect: + anxious affect and + constricted affect Mood: + depressed mood and + anxious mood Thought Process: goal directed thought process At times the patient can tend to be somewhat concrete. This is felt to be noteworthy given the fact that he is currently a college student. Thought Content: reality based without delusions The patient describes a long history of recurrent, intrusive, ego-dystonic thoughts, together with excessive rumina tion. He reports that he has fleeting thoughts of suicide that are described as being ego-dystonic and are not currently associated with any active plan or intent. He notes that "yesterday, I was having more of those kinds of thoughts that I am today." Homicidal Thoughts: denies homicidal thoughts Hallucinations: no auditory hallucinations and no visual hallucinations Cognition: recent memory grossly intact and remote memory grossly intact The patient seems to be fairly easily distracted and does have difficulty concentrating at times. Estimated Intelligence: average estimated intelligence Insight: + fair insight Judgement: + fair judgement Vital Signs (Past 24 Hours): Last Vital Signs Temp 37 C 11/01/19 06:40 Pulse 106 H 11/01/19 06:40 Resp 18 11/01/19 06:40 BP 130/83 11/01/19 06:40 Pulse Ox 96 10/31/19 17:14 Results & Data ([facility]) Laboratory Results Laboratory Results - last 24 hr 10/31/19 10/31/19 10/31/19 10:17 10:17 10:17 WBC RBC Hgb Hct MCV MCH MCHC RDW Std Deviation RDW Coeff of Eileen Plt Count MPV Immature Gran % (Auto) Neut % (Auto) Lymph % (Auto) Mcleod % (Auto) Eos % (Auto) Baso % (Auto) Immature Gran # (Auto) Neut # (Auto) Lymph # (Auto) Mcleod # (Auto) Eos # (Auto) Baso # (Auto) Sodium Potassium Chloride Carbon Dioxide Anion Gap BUN Creatinine Est Cr Clr Drug Dosing Est GFR ( Amer) Est GFR (Non-Af Amer) BUN/Creatinine Ratio Glucose Calcium Total Bilirubin AST ALT Alkaline Phosphatase Total Protein Albumin Globulin Albumin/Globulin Ratio Lipase TSH Urine Color Yellow Urine Appearance Clear Urine pH 7.0 Ur Specific [place] 1.008 Urine Protein Negative Urine Glucose (UA) Negative Urine Ketones Negative Urine Blood Negative Urine Nitrite Negative Urine Bilirubin Negative Urine Urobilinogen Negative Ur Leukocyte Esterase Negative Salicylates Urine Opiates Screen Neg Ur Methadone, Qual Neg Acetaminophen Urine Barbiturates Neg Ur Phencyclidine (PCP) Neg U Amphetamin/Meth Scrn Neg MDMA (Ecstasy) Screen Neg U OH-Alprazolam Confrm Pending U Benzodiazepines Scrn Pos H 7-Amino Clonazepam Pending Ur Nordiazepam Confirm Pending U OH-ethylflurazepam Pending U Lorazepam Cnf GC/MS Pending U Oxazepam Confm GC/MS Pending Ur Temazepam Confirm Pending U OH-Triazolam Confirm Pending U OH-Midazolam Confirm Pending Ur Cocaine Metabolite Neg U Marijuana (THC) Screen Neg Drug Screen Comment Pending Ethyl Alcohol mg/dL 10/31/19 10/31/19 10/31/19 10:42 10:42 10:42 WBC 5.63 RBC 4.63 L Hgb 14.2 Hct 41.1 L MCV 88.8 MCH 30.7 MCHC 34.5 RDW Std Deviation 42.3 RDW Coeff of Eileen 13.2 Plt Count 235 MPV 10.2 Immature Gran % (Auto) 0.2 Neut % (Auto) 53.3 Lymph % (Auto) 35.3 Mcleod % (Auto) 7.1 Eos % (Auto) 3.7 Baso % (Auto) 0.4 Immature Gran # (Auto) 0.01 Neut # (Auto) 3.00 Lymph # (Auto) 1.99 Mcleod # (Auto) 0.40 Eos # (Auto) 0.21 Baso # (Auto) 0.02 Sodium 137 Potassium 4.0 Chloride 104 Carbon Dioxide 26 Anion Gap 7.0 BUN 10 Creatinine 1.25 Est Cr Clr Drug Dosing 91.1 Est GFR ( Amer) 79.5 Est GFR (Non-Af Amer) 68.6 BUN/Creatinine Ratio 8.3 L Glucose 135 H Calcium 9.7 Total Bilirubin 0.7 AST 464 H ALT 724 H Alkaline Phosphatase 112 Total Protein 8.3 H Albumin 4.3 Globulin 4.0 Albumin/Globulin Ratio 1.1 Lipase TSH 0.448 Urine Color Urine Appearance Urine pH Ur Specific [place] Urine Protein Urine Glucose (UA) Urine Ketones Urine Blood Urine Nitrite Urine Bilirubin Urine Urobilinogen Ur Leukocyte Esterase Salicylates < 1.7 L Urine Opiates Screen Ur Methadone, Qual Acetaminophen < 2 L Urine Barbiturates Ur Phencyclidine (PCP) U Amphetamin/Meth Scrn MDMA (Ecstasy) Screen U OH-Alprazolam Confrm U Benzodiazepines Scrn 7-Amino Clonazepam Ur Nordiazepam Confirm U OH-ethylflurazepam U Lorazepam Cnf GC/MS U Oxazepam Confm GC/MS Ur Temazepam Confirm U OH-Triazolam Confirm U OH-Midazolam Confirm Ur Cocaine Metabolite U Marijuana (THC) Screen Drug Screen Comment Ethyl Alcohol mg/dL 10/31/19 10/31/19 10:42 10:42 WBC RBC Hgb Hct MCV MCH MCHC RDW Std Deviation RDW Coeff of Eileen Plt Count MPV Immature Gran % (Auto) Neut % (Auto) Lymph % (Auto) Mcleod % (Auto) Eos % (Auto) Baso % (Auto) Immature Gran # (Auto) Neut # (Auto) Lymph # (Auto) Mcleod # (Auto) Eos # (Auto) Baso # (Auto) Sodium Potassium Chloride Carbon Dioxide Anion Gap BUN Creatinine Est Cr Clr Drug Dosing Est GFR ( Amer) Est GFR (Non-Af Amer) BUN/Creatinine Ratio Glucose Calcium Total Bilirubin AST ALT Alkaline Phosphatase Total Protein Albumin Globulin Albumin/Globulin Ratio Lipase 142 TSH Urine Color Urine Appearance Urine pH Ur Specific [place] Urine Protein Urine Glucose (UA) Urine Ketones Urine Blood Urine Nitrite Urine Bilirubin Urine Urobilinogen Ur Leukocyte Esterase Salicylates Urine Opiates Screen Ur Methadone, Qual Acetaminophen Urine Barbiturates Ur Phencyclidine (PCP) U Amphetamin/Meth Scrn MDMA (Ecstasy) Screen U OH-Alprazolam Confrm U Benzodiazepines Scrn 7-Amino Clonazepam Ur Nordiazepam Confirm U OH-ethylflurazepam U Lorazepam Cnf GC/MS U Oxazepam Confm GC/MS Ur Temazepam Confirm U OH-Triazolam Confirm U OH-Midazolam Confirm Ur Cocaine Metabolite U Marijuana (THC) Screen Drug Screen Comment Ethyl Alcohol mg/dL < 3.0 Current Inpatient Medications Current Inpatient Medications: Current Inpatient Medications Acetaminophen (Tylenol) 650 mg PO Q4H PRN PRN Reason: Headache or Minor Fever Stop: 11/30/19 15:27 Al Hydrox/Mg Hydrox/Simethicone (Maalox) 30 ml PO Q4H PRN PRN Reason: GI Upset Stop: 11/30/19 15:27 Aripiprazole (Abilify) 5 mg PO QAM MAYO Stop: 12/02/19 08:59 Bismuth Subsalicylate (Kaopectate) 15 ml PO PRN PRN PRN Reason: Loose Stool Stop: 11/30/19 15:27 Clonazepam (Klonopin) 0.25 mg PO BID PRN PRN Reason: Anxiety Stop: 12/01/19 10:20 Clonidine HCl (Catapres) 1 mg PO BID MAYO Stop: 12/01/19 10:29 Fluticasone Propionate (Flonase) 1 sprays NA DAILY MAYO Stop: 12/01/19 08:59 Last Admin: 11/01/19 10:19 Dose: 1 sprays Documented by: Fluvoxamine Maleate (Luvox) 50 mg PO HS MAYO Stop: 12/01/19 21:59 Hydroxyzine HCl (Vistaril) 50 mg PO HSZ PRN PRN Reason: Insomnia Stop: 11/30/19 15:27 Last Admin: 10/31/19 22:01 Dose: 50 mg Documented by: Hydroxyzine HCl (Vistaril) 25 mg PO Q4H PRN PRN Reason: Anxiety Stop: 11/30/19 15:27 Lamotrigine (Lamictal) 100 mg PO BID MAYO Stop: 11/30/19 20:59 Last Admin: 11/01/19 10:21 Dose: 100 mg Documented by: Magnesium Hydroxide (Milk Of Magnesia) 30 ml PO DAILY PRN PRN Reason: Constipation Stop: 11/30/19 15:27 Sodium Chloride ([place] Nasal) 1 - 2 sprays NA PRN PRN PRN Reason: Nasal Dryness/Congestion Stop: 11/30/19 15:27 Last Admin: 10/31/19 21:57 Dose: 1 sprays Documented by: Valsartan (Diovan) 80 mg PO DAILY MAYO Stop: 12/01/19 08:59 Last Admin: 11/01/19 10:18 Dose: 80 mg Documented by: Zaleplon (Sonata) 10 mg PO HSZ PRN PRN Reason: Insomnia Stop: 12/01/19 10:13
[2019-11-01] MEDS: SODIUM CHLORIDE 0.65% NA SOLN 45 ML (OCEAN) PRN ×2 (12:18→19:26)
[2019-11-01] MEDS: cloNIDine HCL 0.1 MG TAB PO SCH ×2 (12:18→21:32)
[2019-11-01] MEDS: clonazePAM 0.25 MG TAB PO PRN (15:40)
[2019-11-01] MEDS: FLUVOXAMINE MALEATE 50 MG TAB PO SCH (21:31)
[2019-11-01] MEDS: ZALEPLON 5 MG CAPSULE PO PRN (22:45)
[2019-11-01 23:50] LABS: 7-Aminoclonaz, Confirm 165 ng/mL (<25); Hydro-Alp Ur, GC/MS NEGATIVE ng/mL (<25); Hydroxyethylflurazepam, Conf NEGATIVE ng/mL (<50); Hydroxymidazolam Ur, GC/MS NEGATIVE ng/mL (<50); Hydroxytriazolam NEGATIVE ng/mL (<50); Lorazepam, Ur GC/MS NEGATIVE ng/mL (<50); Nordiazepam, Confirm 138 ng/mL (<50); Oxazepam Ur, GC/MS 138 ng/mL (<50); Temazepam, Confirm 192 ng/mL (<50)
[2019-11-02] MEDS: ARIPiprazole 5 MG TAB PO SCH (08:26)
[2019-11-02] MEDS: cloNIDine HCL 0.1 MG TAB PO SCH ×2 (08:26→21:54)
[2019-11-02] MEDS: VALSARTAN 80 MG TAB PO SCH (08:26)
[2019-11-02] MEDS: FLUTICASONE PROPIONATE NA SPR 16 GM BTL SCH (08:27)
[2019-11-02] MEDS: lamoTRIgine 100 MG TAB PO SCH ×2 (08:27→21:54)
[2019-11-02] MEDS ORDERED: IBUPROFEN 600 MG TAB PO PRN (10:22)
[2019-11-02] MEDS: ONDANSETRON 2 MG OD TAB PO PRN ×2 (11:21→17:47)
[2019-11-02] MEDS: IPRATROPIUM BROMIDE NASAL SPRAY 0.06% 15ML NAE SCH ×2 (14:03→22:19)
--- NOTE | 2019-11-02 19:46 | Psychiatric Progress Note ---
Date of Service November 02, 2019 Impression / Recommendations Impression This 44-year-old man was admitted through the emergency room because of complaints of worsening anxiety, depression, and suicidal thoughts. The record indicates that in the past he has been given a diagnosis of bipolar disorder, but at admission the patient does not provide clinical data that would be consistent with a diagnosis of juvenal or hypomania in the past. According the patient, he feels that his main problem has always been anxiety. He notes that he is anxious even when he is not feeling particularly depressed, and he feels that the anxiety precipitates depression, largely because it interferes with his sleep and causes him to feel as if he cannot progress. He also identifies social phobia, which he says causes him to isolate and that, in turn, makes him feel "lonely." He comes across as being somewhat passive and dependent. For example, he acknowledges that he has sleep apnea and is supposed to use CPAP at night, but does not. Yet he complains of intermittent insomnia and poor quality sleep in such a manner as to suggest that the ability to address this lies outside his own control. Based on the history that the patient provides he has not ever responded particularly well to psychiatric medications. There is a suggestion that perhaps the patient had responded at some point to sertraline and he estimates that he took this medication for as many as 5 years, but tells us that he does not feel that it was ever helpful, even at dosages of 200 mg. (He acknowledges that he declined to have his dose increased to 250 mg as recommended by his psychiatrist.) He notes that several other antidepressant medications, including but not limited to Prozac, were either ineffective or worsened his depression. He says that he was given quetiapine at 1 point, but experienced excess sedation. He adds, "it was okay for sleep, but I could not take it during the day and I always felt kind of hung over." He is not certain if he is ever taken aripiprazole as an adjunct. He does not feel that bupropion has been helpful in managing his anxiety or his depression, and it may be that bupropion is contributing to his anxiety. He notes that he has never taken Luvox as an antidepressant or as an antiobsessional medication. He tells me that although he has taken Klonopin at dosages of up to 1 mg 3 times a day to manage anxiety, he has never felt that it is particularly helpful in managing his anxiety and, to the contrary, sometimes makes him feel "fuzzy" and under less control than normal. The only medication that he endorses as having been effective in the past is clonidine. Trazodone has been attempted in the past, but at 150 mg a day did not help. 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 We discussed the fact that hypnotic medications can actually worsen his sleep apnea symptoms and we are encouraging him to adhere to the recommendation that he use CPAP at night, but he feels that he has an oral appliance that is "pretty effective." Given the above considerations, bupropion is being discontinued in favor of Luvox 50 mg at bedtime with a plan to titrate as tolerated. There is an order for Sonata 10 mg at bedtime as needed for sleep. We will also provide the patient with a low-dose of aripiprazole (5 mg a day) as an adjunct medication for Luvox and to assist with OCD symptoms. The patient states that his goal is to discontinue clonazepam during the hospital stay, and in the service of that goal while minimizing risk of withdrawal symptoms aggravating his prsentation I have switche his prn doses of klonopin to scheudle (0.25mg bid) with aim to lower to 0.25mg qday shortly and then to stop the klonopin after that. monitoring for s/e of new medications for him, zofran prn added for nasuea for now but if nasuea worsens or not imrpoes will adjust psychiatric medications (1) Anxiety: 11/01/19 -The patient has been admitted to the [facility] behavioral health unit and has been placed on close observations. He has been referred for individual, group and activity therapies and will be encouraged to work on developing improved individual coping strategies. -The patient has been taught several mindfulness techniques that he may choose to use to interrupt intrusive, alien, obsessive thoughts. The patient was able to practice these during today's encounter. -He indicates that he is responded favorably to clonidine in the past. We will begin clonidine 0.1 mg twice daily standing dose for anxiety. -The patient meets criteria for several anxiety disorders, including generalized anxiety disorder, social anxiety disorder, and obsessive-compulsive disorder. We have added Luvox 50 mg a day and will titrate as indicated as a treatment for his obsessive-compulsive symptoms. 11/02/19 maintained luvox at 50mg a day for now and titrate as approapite if nasuea resolves converted klonpin to 0.25mg bid scheduled with aim to lower to 0.25mg qday in 2- 3 days with goal of stopping klonopin approx around time of discharge. (2) Elevated LFTs: 11/01/19 -The patient's elevated liver functions are noted. The patient's liver enzymes were within normal limits as recently as a month ago. This may be a medication effect, and the plan is to repeat the studies and 3 days. There is a past history of pancreatitis, cholecystitis, cholelithiasis, and choledocholithiasis," as well as a current history of fatty liver. 11/02/19 stopped tyl prn order and replaced with advil prn order and labs on 11/03 as above (3) Insomnia: 11/01/19 -Patient reports that he has chronic difficulty with sleeping. He reports that he tends to fall asleep fairly well, but then awakens multiple times during the night, usually briefly, but his estimate is that he may awaken between 10 and 20 times during the night. He has a history of sleep apnea and seems to be seeking a solution other than CPAP. -The patient's insomnia clearly contributes to his depression and anxiety. We will offer him a trial of Sonata at bedtime while actively encouraging him to reconsider his decision not to use CPAP. -The patient has been educated regarding the risks associated with untreated obstructive sleep apnea. (4) Obesity (BMI 30-39.9): 11/01/19 -The patient has been educated regarding the importance of weight loss, particularly with in the context of his obstructive sleep apnea. He has been advised that weight loss may help relieve symptoms of obstructive sleep apnea. -Within this context, the patient is concerned about medications that may cause weight gain. He is encouraged to apply healthy food choices and portion control, combined with regular exercise. -The patient has been placed on a low carbohydrate diet. 11/01 - addressed resistance to sleep apnea (5) Depression: 11/01/19 -Patient reports a lifelong history of intermittent, recurrent depression and says that he has not felt that he has been free of depression "for many years." His symptoms of depression reportedly include depressed mood, apathy, low self- esteem, anhedonia, and poor concentration. -Given that the patient has been tried on multiple different antidepressant medications without reported results, we will try Luvox, I medications the patient reports that he has not taken previously. It is hoped that Luvox will help both with depression and with OCD in his case. We are beginning Luvox at 50 mg at bedtime and will titrate as tolerated. -Aripiprazole is being added at 5 mg daily as an adjunct for Luvox and, also, because it may help with the patient's obsessive-compulsive features. 11/02/19 removed SI precautions in afternoon maintainerd meds as per 11/01/19 (6) Type 2 diabetes mellitus: 11/01/2019 -Patient reports that his diabetes is diet controlled. His blood sugar was somewhat elevated at admission. I have ordered a type 2 diabetes low carbohydrate diet and we will continue to monitor his blood sugars daily per waived testing. 11/02/19 checking glucose levels and ordered Hgb A1C for 615 am labs Inventory Assets Strengths: Motivated to treatment and recovery. Future oriented. Needs: Reduction in anxiety, reduction in obsessive compulsive dyads, resolution of intrusive suicidal thoughts, improved individual coping strategies. Risk Factors Assessment Male: Yes : Yes Do You Have Access To A Gun?: No Health Problems: Yes Mental Health Diagnoses: Yes Substance Use Disorders: No Previous Attempt: No Family History of Suicide: No Previous Psychiatric Hospitalization: Yes Hopelessness: No Smoker: No Protective Factors Assessment Congregation Beliefs: Yes : No Responsible for Young Children: No Employed: No Stable Relationships: No Supportive Family: Yes Good Rapport with Provider: Yes Absence of Any Risk Factors Above: No Interval History Chief Complaint "having nasuea". Review of Systems Sleep Information Total Hours of Sleep: 4.75 Meal Information Percent Meal Consumed - Breakfast: 80 Percent Meal Consumed - Lunch: 100 Percent Meal Consumed - Dinner: 100 Subjective Subjective Patient was seen & assessed and interval progress reviewed with nursing and social work pt having nasuea. pt taking klonopin 0.25mg prn and one dose taken since ordered although it appaears pt has a longer benzo usage hisotry at higher dose then he made clear at time of admission and might be having some withdrawal symptoms and worsening anxiety as lwoered to his current liimited klonopin dose being taken. nasuea could als obe a s/e to his recent med additions. pt focusedo n swithcing flonase to fluctiasone, he is preocupied about his somatic cocnerns. He is exhibiting obsessive thinking. He has not used his CPAP since admission but indicates would be wiling to tryi t tonight. He is gwendolyn of having dry mouth as a s/e if does use it Physical Exam Psychiatric Orientation: alert, oriented x 3 and cooperative Apperance: appropriately dressed, appropriately groomed and appeared stated age Eye Contact: + fair eye contact Speech: normal rate/rhythm/volume of speech Affect: + anxious affect and + constricted affect Mood: + anxious mood Thought Process: goal directed thought process Thought Content: + obsessions and reality based without delusions Suicidal Thoughts: denies suicidal thoughts Homicidal Thoughts: denies homicidal thoughts Hallucinations: no auditory hallucinations and no visual hallucinations Cognition: recent memory grossly intact and remote memory grossly intact Estimated Intelligence: average estimated intelligence Insight: + fair insight Judgement: + fair judgement Vital Signs (Past 24 Hours) Last Vital Signs Temp 36.9 C 11/02/19 07:10 Pulse 93 H 11/02/19 07:11 Resp 18 11/02/19 07:10 BP 113/77 11/02/19 07:11 Pulse Ox 96 10/31/19 17:14 Results & Data ([facility]) Laboratory Results Laboratory Results - last 24 hr 10/31/19 11/02/19 10:17 08:45 POC Glucose 125 H U OH-Alprazolam Confrm NEGATIVE 7-Amino Clonazepam 165 H Ur Nordiazepam Confirm 138 H U OH-ethylflurazepam NEGATIVE U Lorazepam Cnf GC/MS NEGATIVE U Oxazepam Confm GC/MS 138 H Ur Temazepam Confirm 192 H U OH-Triazolam Confirm NEGATIVE U OH-Midazolam Confirm NEGATIVE Drug Screen Comment SEE NOTE Current Inpatient Medications Current Inpatient Medications: Current Inpatient Medications Al Hydrox/Mg Hydrox/Simethicone (Maalox) 30 ml PO Q4H PRN PRN Reason: GI Upset Stop: 11/30/19 15:27 Aripiprazole (Abilify) 5 mg PO QAM MAYO Stop: 12/02/19 08:59 Last Admin: 11/02/19 08:26 Dose: 5 mg Documented by: Bismuth Subsalicylate (Kaopectate) 15 ml PO PRN PRN PRN Reason: Loose Stool Stop: 11/30/19 15:27 Clonazepam (Klonopin) 0.25 mg PO BID PRN PRN Reason: Anxiety Stop: 12/01/19 10:20 Last Admin: 11/01/19 15:40 Dose: 0.25 mg Documented by: Clonidine HCl (Catapres) 0.1 mg PO BID MAYO Stop: 12/01/19 10:29 Last Admin: 11/02/19 08:26 Dose: 0.1 mg Documented by: Fluvoxamine Maleate (Luvox) 50 mg PO HS MAYO Stop: 12/01/19 21:59 Last Admin: 11/01/19 21:31 Dose: 50 mg Documented by: Hydroxyzine HCl (Vistaril) 50 mg PO HSZ PRN PRN Reason: Insomnia Stop: 11/30/19 15:27 Last Admin: 10/31/19 22:01 Dose: 50 mg Documented by: Hydroxyzine HCl (Vistaril) 25 mg PO Q4H PRN PRN Reason: Anxiety Stop: 11/30/19 15:27 Ibuprofen (Motrin) 600 mg PO Q8H PRN PRN Reason: Pain Stop: 12/02/19 10:21 Ipratropium [place] (Atrovent Nasal Startex 0.06%) 2 sprays AMY Q12 MAYO Stop: 12/02/19 20:59 Last Admin: 11/02/19 14:03 Dose: 2 sprays Documented by: Lamotrigine (Lamictal) 100 mg PO BID MAYO Stop: 11/30/19 20:59 Last Admin: 11/02/19 08:27 Dose: 100 mg Documented by: Magnesium Hydroxide (Milk Of Magnesia) 30 ml PO DAILY PRN PRN Reason: Constipation Stop: 11/30/19 15:27 Ondansetron HCl (Zofran Odt) 2 mg PO Q6H PRN PRN Reason: Nausea Stop: 12/02/19 10:24 Last Admin: 11/02/19 17:47 Dose: 2 mg Documented by: Sodium Chloride ([place] Nasal) 1 - 2 sprays NA PRN PRN PRN Reason: Nasal Dryness/Congestion Stop: 11/30/19 15:27 Last Admin: 11/01/19 19:26 Dose: 2 sprays Documented by: Valsartan (Diovan) 80 mg PO DAILY MAYO Stop: 12/01/19 08:59 Last Admin: 11/02/19 08:26 Dose: 80 mg Documented by: Zaleplon (Sonata) 10 mg PO HSZ PRN PRN Reason: Insomnia Stop: 12/01/19 10:13 Last Admin: 11/01/19 22:45 Dose: 10 mg Documented by: Mental Health & Subst Abuse Tx Psychiatrist Name of Psychiatrist: [facility] - Dr. Mcclain Psychiatrist's Psychiatric Appointment Comment: [address] [facility] [address], [address], [place] Therapist Name of Therapist: Dr. Yenny Jett Therapist's Therapy Appointment Comment: 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 Bradley Aden Primary Care Provider Appointment Comment: [facility] Contact Information Discharge Discharge Address: [address], [address], [place] [address]
[2019-11-02] MEDS: FLUVOXAMINE MALEATE 50 MG TAB PO SCH (21:54)
[2019-11-02] MEDS: clonazePAM 0.25 MG TAB PO PRN (22:16)
[2019-11-02] MEDS: ZALEPLON 5 MG CAPSULE PO PRN (23:21)
[2019-11-03] MEDS: VALSARTAN 80 MG TAB PO SCH (08:23)
[2019-11-03] MEDS: ARIPiprazole 5 MG TAB PO SCH (08:23)
[2019-11-03] MEDS: cloNIDine HCL 0.1 MG TAB PO SCH ×2 (08:23→21:17)
[2019-11-03] MEDS: IPRATROPIUM BROMIDE NASAL SPRAY 0.06% 15ML NAE SCH ×2 (08:24→21:16)
[2019-11-03] MEDS: lamoTRIgine 100 MG TAB PO SCH ×2 (08:24→21:17)
--- NOTE | 2019-11-03 15:42 | Psychiatric Progress Note ---
Date of Service November 03, 2019 Impression / Recommendations Impression This 44-year-old man was admitted through the emergency room because of complaints of worsening anxiety, depression, and suicidal thoughts. The record indicates that in the past he has been given a diagnosis of bipolar disorder, but at admission the patient does not provide clinical data that would be consistent with a diagnosis of juvenal or hypomania in the past. According the patient, he feels that his main problem has always been anxiety. He notes that he is anxious even when he is not feeling particularly depressed, and he feels that the anxiety precipitates depression, largely because it interferes with his sleep and causes him to feel as if he cannot progress. He also identifies social phobia, which he says causes him to isolate and that, in turn, makes him feel "lonely." He comes across as being somewhat passive and dependent. For example, he acknowledges that he has sleep apnea and is supposed to use CPAP at night, but does not. Yet he complains of intermittent insomnia and poor quality sleep in such a manner as to suggest that the ability to address this lies outside his own control. Based on the history that the patient provides he has not ever responded particularly well to psychiatric medications. There is a suggestion that perhaps the patient had responded at some point to sertraline and he estimates that he took this medication for as many as 5 years, but tells us that he does not feel that it was ever helpful, even at dosages of 200 mg. (He acknowledges that he declined to have his dose increased to 250 mg as recommended by his psychiatrist.) He notes that several other antidepressant medications, including but not limited to Prozac, were either ineffective or worsened his depression. He says that he was given quetiapine at 1 point, but experienced excess sedation. He adds, "it was okay for sleep, but I could not take it during the day and I always felt kind of hung over." He is not certain if he is ever taken aripiprazole as an adjunct. He does not feel that bupropion has been helpful in managing his anxiety or his depression, and it may be that bupropion is contributing to his anxiety. He notes that he has never taken Luvox as an antidepressant or as an antiobsessional medication. He tells me that although he has taken Klonopin at dosages of up to 1 mg 3 times a day to manage anxiety, he has never felt that it is particularly helpful in managing his anxiety and, to the contrary, sometimes makes him feel "fuzzy" and under less control than normal. The only medication that he endorses as having been effective in the past is clonidine. Trazodone has been attempted in the past, but at 150 mg a day did not help. 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 We discussed the fact that hypnotic medications can actually worsen his sleep apnea symptoms and we are encouraging him to adhere to the recommendation that he use CPAP at night, but he feels that he has an oral appliance that is "pretty effective." Given the above considerations, bupropion is being discontinued in favor of Luvox 50 mg at bedtime with a plan to titrate as tolerated. There is an order for Sonata 10 mg at bedtime as needed for sleep. We will also provide the patient with a low-dose of aripiprazole (5 mg a day) as an adjunct medication for Luvox and to assist with OCD symptoms. The patient states that his goal is to discontinue clonazepam during the hospital stay, and in the service of that goal he is now taking klonopin at 0.25mg prn doses that can be up to 2 times day but only obtaining once a day. Pt has started using the CPAP machine IS rather obsessive in his presentation. (1) Elevated LFTs: 11/01/19 -The patient's elevated liver functions are noted. The patient's liver enzymes were within normal limits as recently as a month ago. This may be a medication effect, and the plan is to repeat the studies and 3 days. There is a past history of pancreatitis, cholecystitis, cholelithiasis, and choledocholithiasis," as well as a current history of fatty liver. 11/02/19 stopped tyl prn order and replaced with advil prn order and labs on 11/03 as above (2) Type 2 diabetes mellitus: 11/01/2019 -Patient reports that his diabetes is diet controlled. His blood sugar was so mewhat elevated at admission. I have ordered a type 2 diabetes low carbohydrate diet and we will continue to monitor his blood sugars daily per waived testing. 11/02/19 checking glucose levels and ordered Hgb A1C for 11/03 am labs (3) Anxiety: 11/01/19 -The patient has been admitted to the [facility] behavioral health unit and has been placed on close observations. He has been referred for individual, group and activity therapies and will be encouraged to work on developing improved individual coping strategies. -The patient has been taught several mindfulness techniques that he may choose to use to interrupt intrusive, alien, obsessive thoughts. The patient was able to practice these during today's encounter. -He indicates that he is responded favorably to clonidine in the past. We will begin clonidine 0.1 mg twice daily standing dose for anxiety. -The patient meets criteria for several anxiety disorders, including generalized anxiety disorder, social anxiety disorder, and obsessive-compulsive disorder. We have added Luvox 50 mg a day and will titrate as indicated as a treatment for his obsessive-compulsive symptoms. 11/02/19 maintained luvox at 50mg a day for now and titrate as approapite if nasuea resolves planned to convert klonpin to 0.25mg bid scheduled with aim to lower tin steps, hwoever pt otbained prn doses only (one 0.25mg a day ) lately and pt becoming more content with this 11/02 - pt content with 0.25mg prn up to bi with tending to take once a day, aiing to wean fully off this medication - raised luvox to 75mg hs but monitor for s/e (4) Insomnia: 11/01/19 -Patient reports that he has chronic difficulty with sleeping. He reports that he tends to fall asleep fairly well, but then awakens multiple times during the night, usually briefly, but his estimate is that he may awaken between 10 and 20 times during the night. He has a history of sleep apnea and seems to be seeking a solution other than CPAP. -The patient's insomnia clearly contributes to his depression and anxiety. We will offer him a trial of Sonata at bedtime while actively encouraging him to reconsider his decision not to use CPAP. -The patient has been educated regarding the risks associated with untreated obstructive sleep apnea. 11/02 - used CPAP last night, sonata taken, sleep ligth and feeling tired today. plan as above and considder further adjsutment of meds if sleep/eenrgy level not improving (5) Obesity (BMI 30-39.9): 11/01/19 -The patient has been educated regarding the importance of weight loss, particularly with in the context of his obstructive sleep apnea. He has been advised that weight loss may help relieve symptoms of obstructive sleep apnea. -Within this context, the patient is concerned about medications that may cause weight gain. He is encouraged to apply healthy food choices and portion control, combined with regular exercise. -The patient has been placed on a low carbohydrate diet. 11/01 - addressed resistance to sleep apnea (6) Depression: 11/01/19 -Patient reports a lifelong history of intermittent, recurrent depression and says that he has not felt that he has been free of depression "for many years." His symptoms of depression reportedly include depressed mood, apathy, low self- esteem, anhedonia, and poor concentration. -Given that the patient has been tried on multiple different antidepressant medications without reported results, we will try Luvox, I medications the patient reports that he has not taken previously. It is hoped that Luvox will help both with depression and with OCD in his case. We are beginning Luvox at 50 mg at bedtime and will titrate as tolerated. -Aripiprazole is being added at 5 mg daily as an adjunct for Luvox and, also, because it may help with the patient's obsessive-compulsive features. 11/02/19 removed SI precautions in afternoon maintainerd meds as per 11/01/19 Inventory Assets Strengths: Motivated to treatment and recovery. Future oriented. Needs: Reduction in anxiety, reduction in obsessive compulsive dyads, resolution of intrusive suicidal thoughts, improved individual coping strategies. Risk Factors Assessment Male: Yes : Yes Do You Have Access To A Gun?: No Health Problems: Yes Mental Health Diagnoses: Yes Substance Use Disorders: No Previous Attempt: No Family History of Suicide: No Previous Psychiatric Hospitalization: Yes Hopelessness: No Smoker: No Protective Factors Assessment Restoration Beliefs: Yes : No Responsible for Young Children: No Employed: No Stable Relationships: No Supportive Family: Yes Good Rapport with Provider: Yes Absence of Any Risk Factors Above: No Interval History Chief Complaint "doing better but some anxiety and negative thinking impacitng my mood some[]". Review of Systems Sleep Information Total Hours of Sleep: 6 Meal Information Percent Meal Consumed - Breakfast: 100 Percent Meal Consumed - Lunch: 100 Percent Meal Consumed - Dinner: 100 Subjective Subjective Patient was seen & assessed and interval progress reviewed with nursing and social work. despite aim to convert Klonopin to scheduled (0.25mg bid) it remained prn only and pt obtained a 0.25mg Hs dose last evening. He reports improvement overall and staff noted that he is more present and engagable and less somatic and seeming to have some notable improvements. Reviewed potential to adjusting Klonopin from mendoza only and he decided to just maintained mendoza only as not as worried about withdrawal concerns at this point. Zofran dose helped alleviate nausea and nausea is milder but not resolved today. He used the CPAP machine and denied bothersome dry mouth today. He felt that his sleep was not deep and he feels less refreshed today. He denied SI. He endorsed ruminative/obsessive negative thinking that could not elaborate on. mood less depressed. no manic symptoms, obsessing thinking present. less bothered by nora atic concerns and less fixated on them Physical Exam Psychiatric Orientation: alert, oriented x 3 and cooperative Apperance: appropriately dressed, appropriately groomed and appeared stated age Eye Contact: good eye contact Motor Behavior: steady gait and station and no abnormal motor movements Speech: normal rate/rhythm/volume of speech Affect: + constricted affect Mood: + depressed mood (less) and + anxious mood (worried ) Thought Process: goal directed thought process Thought Content: + obsessions and reality based without delusions Suicidal Thoughts: denies suicidal thoughts Homicidal Thoughts: denies homicidal thoughts Hallucinations: no auditory hallucinations and no visual hallucinations Cognition: recent memory grossly intact and remote memory grossly intact Estimated Intelligence: average estimated intelligence Insight: + fair insight Judgement: + fair judgement Vital Signs (Past 24 Hours) Last Vital Signs Temp 36.7 C 11/03/19 06:00 Pulse 98 H 11/03/19 06:00 Resp 18 11/03/19 06:00 BP 109/62 11/03/19 06:00 Pulse Ox 98 11/03/19 03:38 Results & Data ([facility]) Laboratory Results Laboratory Results - last 24 hr 11/03/19 08:18 POC Glucose 130 H Current Inpatient Medications Current Inpatient Medications: Current Inpatient Medications Al Hydrox/Mg Hydrox/Simethicone (Maalox) 30 ml PO Q4H PRN PRN Reason: GI Upset Stop: 11/30/19 15:27 Aripiprazole (Abilify) 5 mg PO QAM MAYO Stop: 12/02/19 08:59 Last Admin: 11/03/19 08:23 Dose: 5 mg Documented by: Bismuth Subsalicylate (Kaopectate) 15 ml PO PRN PRN PRN Reason: Loose Stool Stop: 11/30/19 15:27 Clonazepam (Klonopin) 0.25 mg PO BID PRN PRN Reason: Anxiety Stop: 12/01/19 10:20 Last Admin: 11/02/19 22:16 Dose: 0.25 mg Documented by: Clonidine HCl (Catapres) 0.1 mg PO BID MAYO Stop: 12/01/19 10:29 Last Admin: 11/03/19 08:23 Dose: 0.1 mg Documented by: Fluvoxamine Maleate (Luvox) 75 mg PO HS MAYO Stop: 12/03/19 21:59 Hydroxyzine HCl (Vistaril) 50 mg PO HSZ PRN PRN Reason: Insomnia Stop: 11/30/19 15:27 Last Admin: 10/31/19 22:01 Dose: 50 mg Documented by: Hydroxyzine HCl (Vistaril) 25 mg PO Q4H PRN PRN Reason: Anxiety Stop: 11/30/19 15:27 Ibuprofen (Motrin) 600 mg PO Q8H PRN PRN Reason: Pain Stop: 12/02/19 10:21 Last Admin: 11/03/19 10:50 Dose: 600 mg Documented by: Ipratropium [place] (Atrovent Nasal [place] 0.06%) 2 sprays AMY Q12 MAYO Stop: 12/02/19 20:59 Last Admin: 11/03/19 08:24 Dose: 2 sprays Documented by: Lamotrigine (Lamictal) 100 mg PO BID MAYO Stop: 11/30/19 20:59 Last Admin: 11/03/19 08:24 Dose: 100 mg Documented by: Magnesium Hydroxide (Milk Of Magnesia) 30 ml PO DAILY PRN PRN Reason: Constipation Stop: 11/30/19 15:27 Ondansetron HCl (Zofran Odt) 2 mg PO Q6H PRN PRN Reason: Nausea Stop: 12/02/19 10:24 Last Admin: 11/02/19 17:47 Dose: 2 mg Documented by: Sodium Chloride ([place] Nasal) 1 - 2 sprays NA PRN PRN PRN Reason: Nasal Dryness/Congestion Stop: 11/30/19 15:27 Last Admin: 11/01/19 19:26 Dose: 2 sprays Documented by: Valsartan (Diovan) 80 mg PO DAILY MAYO Stop: 12/01/19 08:59 Last Admin: 11/03/19 08:23 Dose: 80 mg Documented by: Zaleplon (Sonata) 10 mg PO HSZ PRN PRN Reason: Insomnia Stop: 12/01/19 10:13 Last Admin: 11/02/19 23:21 Dose: 10 mg Documented by: Mental Health & Subst Abuse Tx Psychiatrist Name of Psychiatrist: [facility] - Dr. Mcclain Psychiatrist's Psychiatric Appointment Comment: [address], [place] Therapist Name of Therapist: Dr. Yenny Jett Therapist's Therapy Appointment Comment: [address], [place] [address] General Operations Manager Name of General Operations Manager: [facility] Phone Number for General Operations Manager: [phone] Time of Appointment with General Operations Manager: Contact if you need assistance with classes/transitioning to school Case Management Appointment Comment: [address] [facility] Discharge Appointments Primary Care Physician Name Of Family Doctor: [facility] - Dr. Bradley Aden Primary Care Date of Appointment with PCP: 11/07/19 Time of Appointment with PCP: 9:20 a.m. Provider Appointment Comment: [facility] Contact Information Discharge Discharge Address: [address], [place] [address]
[2019-11-03] MEDS: FLUVOXAMINE MALEATE 50 MG TAB PO SCH (21:17)
[2019-11-04] MEDS: ZALEPLON 5 MG CAPSULE PO PRN ×2 (00:41→21:35)
[2019-11-04 07:34] LABS: Estimated Average Glucose 128 mg/dl; Hemoglobin A1C 6.1 % (4.5-5.6)
[2019-11-04 07:58] LABS: Albumin Level 4.4 gm/dl (3.4-5.0); Bilirubin Direct 0.1 mg/dl (0-0.2); Bilirubin,Total 0.6 mg/dl (0.2-1); Total Protein 8.5 gm/dl (6.4-8.2)
[2019-11-04] MEDS: ARIPiprazole 5 MG TAB PO SCH ×2 (08:17→21:03)
[2019-11-04] MEDS: cloNIDine HCL 0.1 MG TAB PO SCH ×2 (08:17→21:02)
[2019-11-04] MEDS: IPRATROPIUM BROMIDE NASAL SPRAY 0.06% 15ML NAE SCH ×2 (08:18→21:01)
[2019-11-04] MEDS: VALSARTAN 80 MG TAB PO SCH (08:18)
[2019-11-04] MEDS: lamoTRIgine 100 MG TAB PO SCH ×2 (08:23→21:03)
--- NOTE | 2019-11-04 09:47 | Psychiatric Progress Note ---
Date of Service November 04, 2019 Impression / Recommendations Impression This 44-year-old man was admitted through the emergency room because of complaints of worsening anxiety, depression, and suicidal thoughts. The record indicates that in the past he has been given a diagnosis of bipolar disorder, but at admission the patient does not provide clinical data that would be consistent with a diagnosis of juvenal or hypomania in the past. According the patient, he feels that his main problem has always been anxiety. He notes that he is anxious even when he is not feeling particularly depressed, and he feels that the anxiety precipitates depression, largely because it interferes with his sleep and causes him to feel as if he cannot progress. He also identifies social phobia, which he says causes him to isolate and that, in turn, makes him feel "lonely." Pt has a significant history of medication trials which have been ineffective for various reasons (see H&P for additional details). On admission, bupropion is being discontinued in favor of Luvox 50 mg at bedtime with a plan to titrate as tolerated. Sonata 10 mg was ordered at bedtime as needed for sleep. Pt was also provided with a low-dose of aripiprazole (5 mg a day) as an adjunct medication for Luvox and to assist with OCD symptoms. The patient stated that his goal is to discontinue clonazepam during the hospital stay, and in the service of that goal dose was reduced to 0.25mg and prn availability was reduced to BID, with patient requested the medication even less frequently. Pt has been compliant with his CPAP machine during this admission with encouragement from the clinical team and education on treatment of sleep apnea to encourage improved sleep overall. Pt has been denying active SI, but does admit to feeling "more dumont" today. (1) Elevated LFTs: 11/01/19 -The patient's elevated liver functions are noted. The patient's liver enzymes were within normal limits as recently as a month ago. This may be a medication effect, and the plan is to repeat the studies and 3 days. There is a past history of pancreatitis, cholecystitis, cholelithiasis, and choledocholithiasis," as well as a current history of fatty liver. 11/02/19 stopped tyl prn order and replaced with advil prn order and labs on 11/03 as above 11/03 - LFTs repeated with significant improvement noted - AST within normal range at 30 (464 on 10/30); ALT still elevated at 185 (724 on 10/30) - Continue to avoid hepatotoxic agents; PCP appointment scheduled for 11/06 (2) Type 2 diabetes mellitus: 11/01/2019 -Patient reports that his diabetes is diet controlled. His blood sugar was somewhat elevated at admission. I have ordered a type 2 diabetes low carbohydrate diet and we will continue to monitor his blood sugars daily per waived testing. 11/02/19 checking glucose levels and ordered Hgb A1C for 11/03 am labs 11/03 - Estimated average glucose - 128 - Hgb A1c - 6.1%; POC glucose this morning was 118 - PCP follow-up on 11/06 and continuing T2DM carb consistent diet as above (3) Anxiety: 11/01/19 -The patient has been admitted to the [facility] behavioral health unit and has been placed on close observations. He has been referred for individual, group and activity therapies and will be encouraged to work on developing improved individual coping strategies. -The patient has been taught several mindfulness techniques that he may choose to use to interrupt intrusive, alien, obsessive thoughts. The patient was able to practice these during today's encounter. -He indicates that he is responded favorably to clonidine in the past. We will begin clonidine 0.1 mg twice daily standing dose for anxiety. -The patient meets criteria for several anxiety disorders, including generalized anxiety disorder, social anxiety disorder, and obsessive-compulsive disorder. We have added Luvox 50 mg a day and will titrate as indicated as a treatment for his obsessive-compulsive symptoms. 11/02/19 maintained luvox at 50mg a day for now and titrate as approapite if nasuea resolves planned to convert klonpin to 0.25mg bid scheduled with aim to lower tin steps, hwoever pt otbained prn doses only (one 0.25mg a day ) lately and pt becoming more content with this 11/02 - pt content with 0.25mg prn up to bi with tending to take once a day, aiing to wean fully off this medication - raised luvox to 75mg hs but monitor for s/e 11/03 - Continue current medication regimen; adjusting aripiprazole to HS dosing due to patient's reports of increased fatigue - Pt did not utilize any prn clonazepam throughout the day yesterday - patient continuing to verbalize desire to discontinue the medication by time of discharge - Pt reporting increased anxiety and irritability today, but believes this may be related to sleep difficulties - Continues to refuse family meeting, but willing to continue outpatient psychiatric treatment on discharge (4) Insomnia: 11/01/19 -Patient reports that he has chronic difficulty with sleeping. He reports that he tends to fall asleep fairly well, but then awakens multiple times during the night, usually briefly, but his estimate is that he may awaken between 10 and 20 times during the night. He has a history of sleep apnea and seems to be seeking a solution other than CPAP. -The patient's insomnia clearly contributes to his depression and anxiety. We will offer him a trial of Sonata at bedtime while actively encouraging him to reconsider his decision not to use CPAP. -The patient has been educated regarding the risks associated with untreated obstructive sleep apnea. 11/02 - used CPAP last night, sonata taken, sleep ligth and feeling tired today. plan as above and considder further adjsutment of meds if sleep/eenrgy level not improving 11/03 - Continue MNPR for CPAP - Continued education on treatment of sleep apnea, importance of compliance with CPAP and ongoing utilization of Sonata as needed for insomnia (5) Obesity (BMI 30-39.9): 11/01/19 -The patient has been educated regarding the importance of weight loss, particularly with in the context of his obstructive sleep apnea. He has been advised that weight loss may help relieve symptoms of obstructive sleep apnea. -Within this context, the patient is concerned about medications that may cause weight gain. He is encouraged to apply healthy food choices and portion control, combined with regular exercise. -The patient has been placed on a low carbohydrate diet. 11/01 - addressed resistance to sleep apnea (6) Depression: 11/01/19 -Patient reports a lifelong history of intermittent, recurrent depression and says that he has not felt that he has been free of depression "for many years." His symptoms of depression reportedly include depressed mood, apathy, low self- esteem, anhedonia, and poor concentration. -Given that the patient has been tried on multiple different antidepressant medications without reported results, we will try Luvox, I medications the patient reports that he has not taken previously. It is hoped that Luvox will help both with depression and with OCD in his case. We are beginning Luvox at 50 mg at bedtime and will titrate as tolerated. -Aripiprazole is being added at 5 mg daily as an adjunct for Luvox and, also, because it may help with the patient's obsessive-compulsive features. 11/02/19 removed SI precautions in afternoon maintainerd meds as per 11/01/1911/03 - Continue Luvox at 75mg qHS - consider further titration at indicated/tolerated - Will adjust Aripiprazole dosing to HS at patient's request, as he believes it may be contributing to morning fatigue - Pt denying SI today, but reports feeling "more dumont" - Verbalizes willingness to continue outpatient psychiatric treatment with Dr. Mcclain for medication management and Dr. Yenny Jett for therapy Inventory Assets Strengths: Motivated to treatment and recovery. Future oriented. Needs: Reduction in anxiety, reduction in obsessive compulsive dyads, resolution of intrusive suicidal thoughts, improved individual coping strategies. Risk Factors Assessment Male: Yes : Yes Do You Have Access To A Gun?: No Health Problems: Yes Mental Health Diagnoses: Yes Substance Use Disorders: No Previous Attempt: No Family History of Suicide: No Previous Psychiatric Hospitalization: Yes Hopelessness: No Smoker: No Protective Factors Assessment Protestant Beliefs: Yes : No Responsible for Young Children: No Employed: No Stable Relationships: No Supportive Family: Yes Good Rapport with Provider: Yes Absence of Any Risk Factors Above: No Interval History Identifying Information TATYANA JUAREZ is a 44-year-old M who currently lives in alone in the [place] area. He has a history of a mood disorder, anxiety, and OCD. Pt was admitted on 10/31/19 15:29 on a 201 voluntary agreement because of depression, anxiety, and intrusive, recurrent thoughts of suicide. Chief Complaint "I'm still having problems with my sleep, but not as much." Review of Systems Notes Constitutional: reports interrupted sleep last evening, fatigue this morning. Headache Cardiovascular: denied Respiratory: denied Gastrointestinal: denied Neurological: denied Psychiatric: denies symptoms other than stated above Total of at least 10 systems reviewed, pertinent positives as above and in HPI. Sleep Information Total Hours of Sleep: 4 Meal Information Percent Meal Consumed - Breakfast: 100 Percent Meal Consumed - Lunch: 100 Percent Meal Consumed - Dinner: 100 Subjective Subjective Patient was seen & assessed and interval progress reviewed with treatment team. Staff report the patient has been attending group programming and is willing for referrals for outpatient psychiatric providers. He has been refusing a family meeting, but has been cooperative with staff and pleasant in the milieu. Pt rated his mood a 5/10 and "hopeful" last evening. Pt was seen today to assess progress since admission. Pt states that he is "still having problems with my sleep, but not as much." Although he admits this has been a long-standing issue, he is able to recognize that some of this may be environmental and may improve once he returns to his home sleeping environment. Pt is able to verbalize the importance of compliance with his CPAP, admitting to a desire to work on this. Pt does report feeling "more dumont" this morning, which he feels may be related to poor sleep last night. Pt describes his mood as "irritable, disappointed in my family." Pt states he is frustrated that his family has "not been supportive of me like I always am of them." At the same time patient admits to frustration that his family is not reaching out, he also is stating he does not want to have contact with them as he feels they will be upset they did not know he was in the hospital. He is also concerned the brunt of this stress will fall to his mother and "she can't handle all that, she's not in good health." Pt reports some superficial local supports, but admits "they aren't pe ople I would talk to about all of this." Pt denies SI today, but admits that his anxiety is intermittently worsened which is a concern for him. He reports he is tolerating taper of clonazepam and feels this change will also help with his daytime fatigue. Pt did report feeling as though the initiation of aripiprazole may be contributing to fatigue, and is requesting to move the dose to the evening. We discussed continuing the remainder of his medications unchanged, but did discuss the roles of the various agents and recommendation for ongoing titration of fluvoxamine as tolerated. Pt denies other needs or concerns at this time, but does spend a decent amount of our conversation offering suggestions about having individual tv's and tablets for patients to "listen to our own music or watch our own television programming - sometimes those things make me happy." Physical Exam Psychiatric Orientation: alert, oriented x 3 and cooperative Apperance: appropriately dressed (casually, in t-shirt and gym shorts) and + disheveled (hair appearing unkempt, not malodorous) Eye Contact: good eye contact Motor Behavior: no abnormal motor movements (observed while sitting upright on the edge of the bed) Speech: normal rate/rhythm/volume of speech (rambling at times, polite ) Affect: + depressed affect and mood congruent with affect Mood: + depressed mood, + anxious mood and + irritable mood ("more dumont") Thought Process: goal directed thought process, clear/coherent thought process and thought association intact Thought Content: + cognitive distortions (related to desire for family support but refusal to involve in treatment ) and reality based without delusions; no hopelessness Suicidal Thoughts: denies suicidal thoughts and denies suicidal intent Homicidal Thoughts: denies homicidal thoughts Hallucinations: no auditory hallucinations and no visual hallucinations Cognition: recent memory grossly intact, attention grossly intact and language grossly intact Estimated Intelligence: consistent with education level Insight: + fair insight Judgement: + fair judgement Vital Signs (Past 24 Hours) Last Vital Signs Temp 36.8 C 11/04/19 06:44 Pulse 87 11/04/19 06:45 Resp 20 11/04/19 06:44 BP 143/90 H 11/04/19 06:45 Pulse Ox 95 11/04/19 03:55 Results & Data ([facility]) Laboratory Results Laboratory Results - last 24 hr 11/04/19 11/04/19 11/04/19 07:09 07:09 07:31 POC Glucose 118 H Estimat Average Glucose 128 Hemoglobin A1c 6.1 H Total Bilirubin 0.6 Direct Bilirubin 0.1 AST 30 ALT 185 H Alkaline Phosphatase 84 Total Protein 8.5 H Albumin 4.4 Current Inpatient Medications Current Inpatient Medications: Current Inpatient Medications Al Hydrox/Mg Hydrox/Simethicone (Maalox) 30 ml PO Q4H PRN PRN Reason: GI Upset Stop: 11/30/19 15:27 Aripiprazole (Abilify) 5 mg PO QAM MAYO Stop: 12/02/19 08:59 Last Admin: 11/04/19 08:17 Dose: 5 mg Documented by: Bismuth Subsalicylate (Kaopectate) 15 ml PO PRN PRN PRN Reason: Loose Stool Stop: 11/30/19 15:27 Clonazepam (Klonopin) 0.25 mg PO BID PRN PRN Reason: Anxiety Stop: 12/01/19 10:20 Last Admin: 11/02/19 22:16 Dose: 0.25 mg Documented by: Clonidine HCl (Catapres) 0.1 mg PO BID MAYO Stop: 12/01/19 10:29 Last Admin: 11/04/19 08:17 Dose: 0.1 mg Documented by: Fluvoxamine Maleate (Luvox) 75 mg PO HS MAYO Stop: 12/03/19 21:59 Last Admin: 11/03/19 21:17 Dose: 75 mg Documented by: Hydroxyzine HCl (Vistaril) 50 mg PO HSZ PRN PRN Reason: Insomnia Stop: 11/30/19 15:27 Last Admin: 10/31/19 22:01 Dose: 50 mg Documented by: Hydroxyzine HCl (Vistaril) 25 mg PO Q4H PRN PRN Reason: Anxiety Stop: 11/30/19 15:27 Ibuprofen (Motrin) 600 mg PO Q8H PRN PRN Reason: Pain Stop: 12/02/19 10:21 Last Admin: 11/03/19 10:50 Dose: 600 mg Documented by: Ipratropium [place] (Atrovent Nasal [place] 0.06%) 2 sprays AMY Q12 [facility] Stop: 12/02/19 20:59 Last Admin: 11/04/19 08:18 Dose: 2 sprays Documented by: Lamotrigine (Lamictal) 100 mg PO BID MAYO Stop: 11/30/19 20:59 Last Admin: 11/04/19 08:23 Dose: 100 mg Documented by: Magnesium Hydroxide (Milk Of Magnesia) 30 ml PO DAILY PRN PRN Reason: Constipation Stop: 11/30/19 15:27 Ondansetron HCl (Zofran Odt) 2 mg PO Q6H PRN PRN Reason: Nausea Stop: 12/02/19 10:24 Last Admin: 11/02/19 17:47 Dose: 2 mg Documented by: Sodium Chloride (Routt Nasal) 1 - 2 sprays NA PRN PRN PRN Reason: Nasal Dryness/Congestion Stop: 11/30/19 15:27 Last Admin: 11/01/19 19:26 Dose: 2 sprays Documented by: Valsartan (Diovan) 80 mg PO DAILY MAYO Stop: 12/01/19 08:59 Last Admin: 11/04/19 08:18 Dose: 80 mg Documented by: Zaleplon (Sonata) 10 mg PO HSZ PRN PRN Reason: Insomnia Stop: 12/01/19 10:13 Last Admin: 11/04/19 00:41 Dose: 10 mg Documented by: Mental Health & Subst Abuse Tx Psychiatrist Name of Psychiatrist: [facility] - Dr. Mcclain Psychiatrist's Psychiatric Appointment Comment: [address], [place] Therapist Name of Therapist: Dr. Yenny Jett Therapist's Therapy Appointment Comment: [id number], [place] [address] Furnace Utility Operator Name of Furnace Utility Operator: [employer] Phone Number for Furnace Utility Operator: [phone] Time of Appointment with Furnace Utility Operator: Contact if you need assistance with classes/transitioning to school Case Management Appointment Comment: [address] [facility] Post Discharge Appointments Primary Care Physician Name Of Family Doctor: [facility] - Dr. Bradley Aden Primary Care Date of Appointment with PCP: 11/07/19 Time of Appointment with PCP: 9:20 a.m. Provider Appointment Comment: [facility] Contact Information Discharge Discharge Address: [address] [place] [address], [address], [place] [address]
[2019-11-04] MEDS: clonazePAM 0.5 MG TAB PO PRN (14:00)
[2019-11-04] MEDS: FLUVOXAMINE MALEATE 50 MG TAB PO SCH (21:04)
[2019-11-05] MEDS: clonazePAM 0.5 MG TAB PO PRN (00:52)
[2019-11-05] MEDS: VALSARTAN 80 MG TAB PO SCH (08:17)
[2019-11-05] MEDS: lamoTRIgine 100 MG TAB PO SCH ×2 (08:17→21:20)
[2019-11-05] MEDS: cloNIDine HCL 0.1 MG TAB PO SCH ×2 (08:17→21:19)
[2019-11-05] MEDS: IPRATROPIUM BROMIDE NASAL SPRAY 0.06% 15ML NAE SCH ×2 (08:17→21:18)
--- NOTE | 2019-11-05 09:14 | Psychiatric Progress Note ---
Date of Service November 05, 2019 Impression / Recommendations Impression This 44-year-old man was admitted through the emergency room because of complaints of worsening anxiety, depression, and suicidal thoughts. The record indicates that in the past he has been given a diagnosis of bipolar disorder, but at admission the patient does not provide clinical data that would be consistent with a diagnosis of juvenal or hypomania in the past. According the patient, he feels that his main problem has always been anxiety. He notes that he is anxious even when he is not feeling particularly depressed, and he feels that the anxiety precipitates depression, largely because it interferes with his sleep and causes him to feel as if he cannot progress. He also identifies social phobia, which he says causes him to isolate and that, in turn, makes him feel "lonely." Pt has a significant history of medication trials which have been ineffective for various reasons (see H&P for additional details). On admission, bupropion is being discontinued in favor of Luvox 50 mg at bedtime with a plan to titrate as tolerated. Sonata 10 mg was ordered at bedtime as needed for sleep, which patient stated was ineffective after several doses. Trial of Ambien CR was initiated at 6.25mg. Pt was also provided with a low- dose of aripiprazole (5 mg a day) as an adjunct medication for Luvox and to assist with OCD symptoms. The patient stated that his goal is to discontinue clonazepam during the hospital stay, and in the service of that goal dose was reduced to 0.25mg and prn availability was reduced to BID, with patient requested the medication even less frequently. Pt has been compliant with his CPAP machine during this admission with encouragement from the clinical team and education on treatment of sleep apnea to encourage improved sleep overall. Pt has been denying active SI, reports feeling comfortable with planning for discharge tomorrow. (1) Elevated LFTs: 11/01/19 -The patient's elevated liver functions are noted. The patient's liver enzymes were within normal limits as recently as a month ago. This may be a medication effect, and the plan is to repeat the studies and 3 days. There is a past history of pancreatitis, cholecystitis, cholelithiasis, and choledocholithiasis," as well as a current history of fatty liver. 11/02/19 stopped tyl prn order and replaced with advil prn order and labs on 11/03 as above 11/03 - LFTs repeated with significant improvement noted - AST within normal range at 30 (464 on 10/30); ALT still elevated at 185 (724 on 10/30) - Continue to avoid hepatotoxic agents; PCP appointment scheduled for 11/06 (2) Type 2 diabetes mellitus: 11/01/2019 -Patient reports that his diabetes is diet controlled. His blood sugar was somewhat elevated at admission. I have ordered a type 2 diabetes low carbohydrate diet and we will continue to monitor his blood sugars daily per waived testing. 11/02/19 checking glucose levels and ordered Hgb A1C for 11/03 am labs 11/03 - Estimated average glucose - 128 - Hgb A1c - 6.1%; POC glucose this morning was 118 - PCP follow-up on 11/06 and continuing T2DM carb consistent diet as above (3) Anxiety: 11/01/19 -The patient has been admitted to the [facility] unit and has been placed on close observations. He has been referred for individual, group and activity therapies and will be encouraged to work on developing improved individual coping strategies. -The patient has been taught several mindfulness techniques that he may choose to use to interrupt intrusive, alien, obsessive thoughts. The patient was able to practice these during today's encounter. -He indicates that he is responded favorably to clonidine in the past. We will begin clonidine 0.1 mg twice daily standing dose for anxiety. -The patient meets criteria for several anxiety disorders, including generalized anxiety disorder, social anxiety disorder, and obsessive-compulsive disorder. We have added Luvox 50 mg a day and will titrate as indicated as a treatment for his obsessive-compulsive symptoms. 11/02/19 maintained luvox at 50mg a day for now and titrate as approapite if nasuea resolves planned to convert klonpin to 0.25mg bid scheduled with aim to lower tin steps, hwoever pt otbained prn doses only (one 0.25mg a day ) lately and pt becoming more content with this 11/02 - pt content with 0.25mg prn up to bi with tending to take once a day, aiing to wean fully off this medication - raised luvox to 75mg hs but monitor for s/e 11/03 - Continue current medication regimen; adjusting aripiprazole to HS dosing due to patient's reports of increased fatigue - Pt did not utilize any prn clonazepam throughout the day yesterday - patient continuing to verbalize desire to discontinue the medication by time of discharge - Pt reporting increased anxiety and irritability today, but believes this may be related to sleep difficulties - Continues to refuse family meeting, but willing to continue outpatient psychiatric treatment on discharge 11/04 - Luvox titrated to 100mg qHS - continue remainder of psychotropic medication regimen - Pt did request prn clonazepam last evening as he reported a panic attack awakening him from sleep - Pt does endorse ongoing anxiety, but states he is aware of coping strategies he can use to combat this - Continues to decline family involvement; after care appointments now in place for outpatient psychiatric treatment (4) Insomnia: 11/01/19 -Patient reports that he has chronic difficulty with sleeping. He reports that he tends to fall asleep fairly well, but then awakens multiple times during the night, usually briefly, but his estimate is that he may awaken between 10 and 20 times during the night. He has a history of sleep apnea and seems to be seeking a solution other than CPAP. -The patient's insomnia clearly contributes to his depression and anxiety. We will offer him a trial of Sonata at bedtime while actively encouraging him to reconsider his decision not to use CPAP. -The patient has been educated regarding the risks associated with untreated obstructive sleep apnea. 11/02 - used CPAP last night, sonata taken, sleep ligth and feeling tired today. plan as above and considder further adjsutment of meds if sleep/eenrgy level not improving 11/03 - Continue MNPR for CPAP - Continued education on treatment of sleep apnea, importance of compliance with CPAP and ongoing utilization of Sonata as needed for insomnia 11/04 - Pt reporting several nights of Sonata use has been ineffective for sleep. Pt inquired about Ambien CR, stating this has been discussed with previous providers. Reviewed risks, benefits, and potential side effects associated with the medication - including black box warning for complex sleep behaviors such as sleep-walking/driving or engaging in potentially harmful activities while sleeping. Pt verbalized understanding of these risks and is agreeable with trial of the medication. Will initiate at 6.25mg this evening. - Continue to encourage use of CPAP, maintain MNPR for this as well (5) Obesity (BMI 30-39.9): 11/01/19 -The patient has been educated regarding the importance of weight loss, particularly with in the context of his obstructive sleep apnea. He has been a dvised that weight loss may help relieve symptoms of obstructive sleep apnea. -Within this context, the patient is concerned about medications that may cause weight gain. He is encouraged to apply healthy food choices and portion control, combined with regular exercise. -The patient has been placed on a low carbohydrate diet. 11/01 - addressed resistance to sleep apnea () Depression: 11/01/19 -Patient reports a lifelong history of intermittent, recurrent depression and says that he has not felt that he has been free of depression "for many years." His symptoms of depression reportedly include depressed mood, apathy, low self- esteem, anhedonia, and poor concentration. -Given that the patient has been tried on multiple different antidepressant me dications without reported results, we will try Luvox, I medications the patient reports that he has not taken previously. It is hoped that Luvox will help both with depression and with OCD in his case. We are beginning Luvox at 50 mg at bedtime and will titrate as tolerated. -Aripiprazole is being added at 5 mg daily as an adjunct for Luvox and, also, because it may help with the patient's obsessive-compulsive features. 11/02/19 removed SI precautions in afternoon maintainerd meds as per 11/01/1911/03 - Continue Luvox at 75mg qHS - consider further titration at indicated/tolerated - Will adjust Aripiprazole dosing to HS at patient's request, as he believes it may be contributing to morning fatigue - Pt denying SI today, but reports feeling "more dumont" - Verbalizes willingness to continue outpatient psychiatric treatment with Dr. Mcclain for medication management and Dr. Yenny Jett for therapy 11/04 - Luvox increased to 100mg for this evening - can continue further titration on an outpatient basis - Continue remainder of psychotropic medication regimen - Denying SI today. Pt verbalized approval of discharge tomorrow, as he has several upcoming outpatient appointments scheduled for the next few days Inventory Assets Strengths: Motivated to treatment and recovery. Future oriented. Needs: Reduction in anxiety, reduction in obsessive compulsive dyads, resolution of intrusive suicidal thoughts, improved individual coping strategies. Risk Factors Assessment Male: Yes : Yes Do You Have Access To A Gun?: No Health Problems: Yes Mental Health Diagnoses: Yes Substance Use Disorders: No Previous Attempt: No Family History of Suicide: No Previous Psychiatric Hospitalization: Yes Hopelessness: No Smoker: No Protective Factors Assessment [employer] Beliefs: Yes : No Responsible for Young Children: No Employed: No Stable Relationships: No Supportive Family: Yes Good Rapport with Provider: Yes Absence of Any Risk Factors Above: No Interval History Identifying Information TATYANA JUAREZ is a 44-year-old M who currently lives in alone in the [place] area. He has a history of a mood disorder, anxiety, and OCD. Pt was admitted on 10/31/19 15:29 on a 201 voluntary agreement because of depression, anxiety, and intrusive, recurrent thoughts of suicide. Chief Complaint "I feel a little light-headed, somewhat distracted." Review of Systems Notes Constitutional: reports feeling lightheaded Cardiovascular: denied Respiratory: denied Gastrointestinal: denied Neurological: denied Psychiatric: denies symptoms other than stated above Total of at least 10 systems reviewed, pertinent positives as above and in HPI. Sleep Information Total Hours of Sleep: 5.5 Sleep Comments: pt on q-15 minute checks Meal Information Percent Meal Consumed - Breakfast: 100 Percent Meal Consumed - Lunch: 100 Percent Meal Consumed - Dinner: 100 Subjective Subjective Patient was seen & assessed and interval progress reviewed with nursing and social work. Staff report the patient continues to be somatically preoccupied, but this has been somewhat reduced over the course of his admission. He is reported to be attending group programming and demonstrating support of peers. Pt did reportedly receive a prn of clonazepam last evening due to reported anxiety associated with his CPAP. Pt was seen today to assess progress since admission. Pt states he is feeling lightheaded today, and is resting a bit to help with this. Pt reports feeling "distracted" today. He states he is having some increased anxious thoughts currently so is attempting to deal with these things. He reports "I'm just thinking a lot about the past." Pt states that generally "staying busy" and "moving around" has been helpful to distract him from these thoughts. He continues to attend group programming and states it has been helpful. Pt continues to report poor sleep, believing he only slept 1-2 hours last night. We did discuss potential alternatives for sleep, primarily the use of Ambien CR as patient is reporting sleep for only 1-2 hours at a time with current medication regimen. We discussed scheduled outpatient appointments, and patient verbalizes feeling comfortable with a discharge tomorrow which would allow him to attend his outpatient PCP and therapy appointment in the next few days. Pt continues to deny SI and denies any safety concerns related to discharge at this time. Physical Exam Psychiatric Orientation: alert, oriented x 3 and cooperative Apperance: appropriately dressed (casually, in t-shirt and gym shorts), appropriately groomed and appeared stated age Eye Contact: good eye contact Motor Behavior: no abnormal motor movements (observed while sitting upright on edge of bed) Speech: normal rate/rhythm/volume of speech Affect: + depressed affect and mood congruent with affect Mood: + depressed mood and + anxious mood "Having some depressed thoughts. Thinking a lot about the past right now." Thought Process: goal directed thought process, clear/coherent thought process and thought association intact Thought Content: reality based without delusions; no hopelessness and no worthlessness Suicidal Thoughts: denies suicidal thoughts, denies suicidal plan and denies suicidal intent Homicidal Thoughts: denies homicidal thoughts Hallucinations: no auditory hallucinations and no visual hallucinations Cognition: attention grossly intact and language grossly intact Insight: + fair insight Judgement: + fair judgement Vital Signs (Past 24 Hours) Last Vital Signs Temp 36.7 C 11/05/19 06:39 Pulse 93 H 11/05/19 06:40 Resp 20 11/05/19 06:39 BP 131/95 11/05/19 06:40 Pulse Ox 95 11/05/19 02:46 Results & Data ([facility]) Laboratory Results Laboratory Results - last 24 hr 11/05/19 08:13 POC Glucose 130 H Current Inpatient Medications Current Inpatient Medications: Current Inpatient Medications Al Hydrox/Mg Hydrox/Simethicone (Maalox) 30 ml PO Q4H PRN PRN Reason: GI Upset Stop: 11/30/19 15:27 Last Admin: 11/04/19 19:18 Dose: 30 ml Documented by: Aripiprazole (Abilify) 5 mg PO HS MAYO Stop: 12/04/19 21:59 Last Admin: 11/04/19 21:03 Dose: 5 mg Documented by: Bismuth Subsalicylate (Kaopectate) 15 ml PO PRN PRN PRN Reason: Loose Stool Stop: 11/30/19 15:27 Clonazepam (Klonopin) 0.25 mg PO BID PRN PRN Reason: Anxiety Stop: 12/04/19 13:51 Last Admin: 11/05/19 00:52 Dose: 0.25 mg Documented by: Clonidine HCl (Catapres) 0.1 mg PO BID MAYO Stop: 12/01/19 10:29 Last Admin: 11/05/19 08:17 Dose: 0.1 mg Documented by: Fluvoxamine Maleate (Luvox) 75 mg PO HS MAYO Stop: 12/03/19 21:59 Last Admin: 11/04/19 21:04 Dose: 75 mg Documented by: Hydroxyzine HCl (Vistaril) 50 mg PO HSZ PRN PRN Reason: Insomnia Stop: 11/30/19 15:27 Last Admin: 10/31/19 22:01 Dose: 50 mg Documented by: Hydroxyzine HCl (Vistaril) 25 mg PO Q4H PRN PRN Reason: Anxiety Stop: 11/30/19 15:27 Ibuprofen (Motrin) 600 mg PO Q8H PRN PRN Reason: Pain Stop: 12/02/19 10:21 Last Admin: 11/03/19 10:50 Dose: 600 mg Documented by: Ipratropium [place] (Atrovent Nasal Gideon 0.06%) 2 sprays AMY Q12 MAYO Stop: 12/02/19 20:59 Last Admin: 11/05/19 08:17 Dose: 2 sprays Documented by: Lamotrigine (Lamictal) 100 mg PO BID MAYO Stop: 11/30/19 20:59 Last Admin: 11/05/19 08:17 Dose: 100 mg Documented by: Magnesium Hydroxide (Milk Of Magnesia) 30 ml PO DAILY PRN PRN Reason: Constipation Stop: 11/30/19 15:27 Ondansetron HCl (Zofran Odt) 2 mg PO Q6H PRN PRN Reason: Nausea Stop: 12/02/19 10:24 Last Admin: 11/02/19 17:47 Dose: 2 mg Documented by: Sodium Chloride ([place] Nasal) 1 - 2 sprays NA PRN PRN PRN Reason: Nasal Dryness/Congestion Stop: 11/30/19 15:27 Last Admin: 11/01/19 19:26 Dose: 2 sprays Documented by: Valsartan (Diovan) 80 mg PO DAILY MAYO Stop: 12/01/19 08:59 Last Admin: 11/05/19 08:17 Dose: 80 mg Documented by: Zaleplon (Sonata) 10 mg PO HSZ PRN PRN Reason: Insomnia Stop: 12/01/19 10:13 Last Admin: 11/04/19 21:35 Dose: 10 mg Documented by: Mental Health & Subst Abuse Tx Psychiatrist Name of Psychiatrist: [facility] - Dr. Mcclain Psychiatrist's Psychiatric Appointment Comment: [address] [facility] [address], [address], [place] Therapist Name of Therapist: Dr. Yenny Jett Therapist's Therapy Appointment Comment: [address] [place] [address] [id number], [place] [address] Research Chemist Name of Research Chemist: [employer] [facility] Phone Number for Research Chemist: [phone] Time of Appointment with Research Chemist: Contact if you need assistance with classes/transitioning to school Case Management Appointment Comment: [address] [facility] Appointments Primary Care Physician Name Of Family Doctor: [facility] - Dr. Bradley Aden Primary Care Date of Appointment with PCP: 11/07/19 Time of Appointment with PCP: 9:20 a.m. Provider Appointment Comment: [facility] Contact Information Discharge Discharge Address: [address] [place] [address], [place] [address], [place] [address]
[2019-11-05] MEDS ORDERED: ZALEPLON 5 MG CAPSULE PO PRN (15:50)
[2019-11-05] MEDS: ARIPiprazole 5 MG TAB PO SCH (21:21)
[2019-11-05] MEDS ORDERED: FLUVOXAMINE MALEATE 50 MG TAB PO SCH (22:00)
[2019-11-06] MEDS: SODIUM CHLORIDE 0.65% NA SOLN 45 ML (OCEAN) PRN (08:56)
[2019-11-06] MEDS: cloNIDine HCL 0.1 MG TAB PO SCH (08:56)
[2019-11-06] MEDS: VALSARTAN 80 MG TAB PO SCH (08:56)
[2019-11-06] MEDS: lamoTRIgine 100 MG TAB PO SCH (08:56)
[2019-11-06] MEDS: IPRATROPIUM BROMIDE NASAL SPRAY 0.06% 15ML NAE SCH (08:58)
--- NOTE | 2019-11-06 10:16 | Discharge Summary ---
Date of Service November 06, 2019 History of Present Illness The patient is a 44-year-old man who reports a lifelong history of depression and anxiety. The record indicates that in the past he has been given a diagnosis of bipolar disorder, but currently the patient does not provide clinical data that would be consistent with a history of juvenal or hypomania. He says that he considers his "main problem" to be anxiety. He notes that the anxiety leads to poor sleep and depressed mood, but also notes that he feels anxious even when not particularly depressed. There is also history of panic attacks. Further, the patient clearly describes a history of obsessive- compulsive disorder symptoms. For example, he tells me that he feels compelled to frequently check various items, including his own appearance, and feels extremely anxious if he attempts to interrupt the compulsive behaviors. He explains, "I will get a thought that there is something wrong with my appearance, and I have to go to a mirror and check. I may have to come back multiple times in order to recheck before I can feel less anxious about it." Also, the patient describes multiple alien intrusive thoughts. The common intrusive thought is that he must rehearse what he is going to say, even in routine benign situations such as ordering food, by practicing what he is about to say repeatedly and has had before speaking. He notes that on certain occasions if he has not rehearsed what he is about to say he becomes overly anxious and finds that he is unable to speak clearly, or feels as if he is not speaking clearly. There is a history of multiple previous psychiatric hospitalizations. He tells us that he has been tried on multiple psychiatric medications and that none are particularly helpful. He also reports that he he wants to discontinue clonazepam, and notes that at one point in the past he was taking clonazepam 1 mg 3 times a day, and the hospital record indicates that 1 of his visits to the emergency room was related to benzodiazepine withdrawal (several years ago). Currently, the patient has been prescribed clonazepam 0.5 mg 3 times daily, but he notes that he is not taking it more than twice a day, and often does not take it at all. When asked why he has not stopped it, he says that he is afraid of having withdrawal. Physical Exam Psychiatric Orientation: alert and cooperative Apperance: appropriately dressed, appropriately groomed and appeared stated age Overweight white male, casually dressed, wearing glasses, seated in no acute distress on the edge of his bed. Eye Contact: good eye contact Motor Behavior: steady gait and station and no abnormal motor movements Speech: normal rate/rhythm/volume of speech Affect: + blunted affect "Okay." Thought Process: goal directed thought process Thought Content: reality based without delusions Suicidal Thoughts: denies suicidal thoughts Homicidal Thoughts: denies homicidal thoughts Hallucinations: no auditory hallucinations Cognition: recent memory grossly intact, attention grossly intact and language grossly intact Insight: + fair insight Judgement: + fair judgement Vital Signs (Past 24 Hours) Last Vital Signs Temp 36.4 C L 11/06/19 06:44 Pulse 97 H 11/06/19 06:44 Resp 18 11/06/19 06:44 BP 142/91 H 11/06/19 06:44 Pulse Ox 95 11/06/19 02:12 Principal Diagnosis Major depressive disorder, recurrent, severe without psychosis Anxiety disorder NOS Insomnia Psychiatric Data The patient was hospitalized for 6 days. On admission, numerous medication changes were made: Bupropion was discontinued, and Luvox was started to target mood, OCD, and anxiety symptoms. Clonidine was started for anxiety, Sonata for sleep, and aripiprazole for adjunctive treatment of depression. His clonazepam dose was decreased, with a plan to taper off of it. He was placed in a private room due to CPAP, and education provided on the importance of using his CPAP nightly, as poor sleep clearly contributed to his mood and anxiety symptoms. Education was provided on mindfulness techniques to interrupt intrusive obsessive thoughts. Although he reported a history of bipolar disorder, he did not endorse any symptoms consistent with manic or hypomanic episodes, so was diagnosed with unipolar depression. He reported rapid improvement in symptoms, was less sedated and somatically focused, and was more engaged in treatment. He attended and participated in groups and therapy, and appeared to gonzales well with a particular female peer. He tolerated the medications well, fluvoxamine was titrated to 150 mg daily. He reported little response to Sonata and requested a trial of Ambien CR, but it was nonformulary so could not be provided in the hospital. He declined a family meeting or any contact with his family. Day of Discharge Assessment Staff report the patient is attending and participating in groups and therapy, stated his mood was slowly improving, and spent most of his time interacting with a female peer. He continues to deny suicidal thoughts, and is less somatically focused. On my assessment, he reports mood is "okay," and improved from admission. He denies suicidal thoughts, thoughts of harming others, and any safety concerns with discharge. He reports improved anxiety and sleep (7 hours last night), but does not want to continue the Sonata and is requesting a trial of Ambien CR, which he reportedly had a good response to in the past. Reviewed risks of PHYSICIAN GENERAL INTERNAL MEDICINE and respiratory depression, especially given his obstructive sleep apnea, and recommendations to discontinue benzodiazepines and avoid other centrally sedating medications, and to use Ambien only for short- term treatment. He does not feel the clonidine has been helpful for anxiety and thinks that it "messed my blood pressure up," he does not want to continue it. He is tolerating the fluvoxamine and aripiprazole well, and agrees to follow-up with his outpatient psychiatrist and therapist, as well as his PCP for elevated LFTs and hypertension. He states treatment has been helpful, and he feels ready to go home today, stating he is "excited" about returning to his home and sleeping in his own bed. He has plans to cook himself some food and make preparations for his upcoming move in November. He is looking forward to picking out new furniture. Transition of Care Transition Of Care Record: was reviewed with the patient Advance Directives Advance Directives Information Provided: No Advance Directives: No Mental Health Advance Directive: No Advance Directives on File: No Living Will: No Power of Superintendent Recreation: No Advance Directives Reason:: Declines as Mental Health Visit. Risk Factors Assessment Risk factors mitigated by admission to the inpatient unit, use of medications to target mood and anxiety symptoms, attempts to avoid polypharmacy and overly sedating medications, involving him in groups and therapy, working on healthy coping skills and a discharge safety plan, and recommending a family meeting which he declined. He has demonstrated improvement in mood, sleep, and anxiety, is denying suicidal thoughts, is performing ADLs independently, and stating willingness to follow-up with outpatient treatment. He is no longer at acute risk of harm to himself, so can be managed as an outpatient at this time. He does not have risk factors for harm to others. Male: Yes : Yes Do You Have Access To A Gun?: No Health Problems: Yes Mental Health Diagnoses: Yes Substance Use Disorders: No Previous Attempt: No Family History of Suicide: No Previous Psychiatric Hospitalization: Yes Hopelessness: No Smoker: No Protective Factors Assessment Mandaeism Beliefs: Yes : No Responsible for Young Children: No Employed: No Stable Relationships: No Supportive Family: Yes Good Rapport with Provider: Yes Absence of Any Risk Factors Above: No Tobacco Cessation at Discharge Tobacco Cessation Medication Prescribed at Discharge: Not Applicable/Non-Smoker Total Time Total Time Spent: Greater Than 30 Minutes Total Time Includes: Examination of the patient, Discharge Planning and Medication Reconciliation Discharge Data Lab Results 10/31/19 10/31/19 10/31/19 10:17 10:17 10:17 WBC RBC Hgb Hct MCV MCH MCHC RDW Std Deviation RDW Coeff of Eileen Plt Count MPV Immature Gran % (Auto) Neut % (Auto) Lymph % (Auto) Upson % (Auto) Eos % (Auto) Baso % (Auto) Immature Gran # (Auto) Neut # (Auto) Lymph # (Auto) Upson # (Auto) Eos # (Auto) Baso # (Auto) Sodium Potassium Chloride Carbon Dioxide Anion Gap BUN Creatinine Est Cr Clr Drug Dosing Est GFR ( Amer) Est GFR (Non-Af Amer) BUN/Creatinine Ratio Glucose POC Glucose Estimat Average Glucose Hemoglobin A1c Calcium Total Bilirubin Direct Bilirubin AST ALT Alkaline Phosphatase Total Protein Albumin Globulin Albumin/Globulin Ratio Lipase TSH Urine Color Yellow Urine Appearance Clear Urine pH 7.0 Ur Specific [place] 1.008 Urine Protein Negative Urine Glucose (UA) Negative Urine Ketones Negative Urine Blood Negative Urine Nitrite Negative Urine Bilirubin Negative Urine Urobilinogen Negative Ur Leukocyte Esterase Negative Salicylates Urine Opiates Screen Neg Ur Methadone, Qual Neg Acetaminophen Urine Barbiturates Neg Ur Phencyclidine (PCP) Neg U Amphetamin/Meth Scrn Neg MDMA (Ecstasy) Screen Neg U OH-Alprazolam Confrm NEGATIVE U Benzodiazepines Scrn Pos H 7-Amino Clonazepam 165 H Ur Nordiazepam Confirm 138 H U OH-ethylflurazepam NEGATIVE U Lorazepam Cnf GC/MS NEGATIVE U Oxazepam Confm GC/MS 138 H Ur Temazepam Confirm 192 H U OH-Triazolam Confirm NEGATIVE U OH-Midazolam Confirm NEGATIVE Ur Cocaine Metabolite Neg U Marijuana (THC) Screen Neg Drug Screen Comment SEE NOTE Ethyl Alcohol mg/dL 10/31/19 10/31/19 10/31/19 10:42 10:42 10:42 WBC 5.63 RBC 4.63 L Hgb 14.2 Hct 41.1 L MCV 88.8 MCH 30.7 MCHC 34.5 RDW Std Deviation 42.3 RDW Coeff of Eileen 13.2 Plt Count 235 MPV 10.2 Immature Gran % (Auto) 0.2 Neut % (Auto) 53.3 Lymph % (Auto) 35.3 Upson % (Auto) 7.1 Eos % (Auto) 3.7 Baso % (Auto) 0.4 Immature Gran # (Auto) 0.01 Neut # (Auto) 3.00 Lymph # (Auto) 1.99 Upson # (Auto) 0.40 Eos # (Auto) 0.21 Baso # (Auto) 0.02 Sodium 137 Potassium 4.0 Chloride 104 Carbon Dioxide 26 Anion Gap 7.0 BUN 10 Creatinine 1.25 Est Cr Clr Drug Dosing 91.1 Est GFR ( Amer) 79.5 Est GFR (Non-Af Amer) 68.6 BUN/Creatinine Ratio 8.3 L Glucose 135 H POC Glucose Estimat Average Glucose Hemoglobin A1c Calcium 9.7 Total Bilirubin 0.7 Direct Bilirubin AST 464 H ALT 724 H Alkaline Phosphatase 112 Total Protein 8.3 H Albumin 4.3 Globulin 4.0 Albumin/Globulin Ratio 1.1 Lipase TSH 0.448 Urine Color Urine Appearance Urine pH Ur Specific [place] Urine Protein Urine Glucose (UA) Urine Ketones Urine Blood Urine Nitrite Urine Bilirubin Urine Urobilinogen Ur Leukocyte Esterase Salicylates < 1.7 L Urine Opiates Screen Ur Methadone, Qual Acetaminophen < 2 L Urine Barbiturates Ur Phencyclidine (PCP) U Amphetamin/Meth Scrn MDMA (Ecstasy) Screen U OH-Alprazolam Confrm U Benzodiazepines Scrn 7-Amino Clonazepam Ur Nordiazepam Confirm U OH-ethylflurazepam U Lorazepam Cnf GC/MS U Oxazepam Confm GC/MS Ur Temazepam Confirm U OH-Triazolam Confirm U OH-Midazolam Confirm Ur Cocaine Metabolite U Marijuana (THC) Screen Drug Screen Comment Ethyl Alcohol mg/dL 10/31/19 10/31/19 11/02/19 10:42 10:42 08:45 WBC RBC Hgb Hct MCV MCH MCHC RDW Std Deviation RDW Coeff of Eileen Plt Count MPV Immature Gran % (Auto) Neut % (Auto) Lymph % (Auto) Upson % (Auto) Eos % (Auto) Baso % (Auto) Immature Gran # (Auto) Neut # (Auto) Lymph # (Auto) Upson # (Auto) Eos # (Auto) Baso # (Auto) Sodium Potassium Chloride Carbon Dioxide Anion Gap BUN Creatinine Est Cr Clr Drug Dosing Est GFR ( Amer) Est GFR (Non-Af Amer) BUN/Creatinine Ratio Glucose POC Glucose 125 H Estimat Average Glucose Hemoglobin A1c Calcium Total Bilirubin Direct Bilirubin AST ALT Alkaline Phosphatase Total Protein Albumin Globulin Albumin/Globulin Ratio Lipase 142 TSH Urine Color Urine Appearance Urine pH Ur Specific [place] Urine Protein Urine Glucose (UA) Urine Ketones Urine Blood Urine Nitrite Urine Bilirubin Urine Urobilinogen Ur Leukocyte Esterase Salicylates Urine Opiates Screen Ur Methadone, Qual Acetaminophen Urine Barbiturates Ur Phencyclidine (PCP) U Amphetamin/Meth Scrn MDMA (Ecstasy) Screen U OH-Alprazolam Confrm U Benzodiazepines Scrn 7-Amino Clonazepam Ur Nordiazepam Confirm U OH-ethylflurazepam U Lorazepam Cnf GC/MS U Oxazepam Confm GC/MS Ur Temazepam Confirm U OH-Triazolam Confirm U OH-Midazolam Confirm Ur Cocaine Metabolite U Marijuana (THC) Screen Drug Screen Comment Ethyl Alcohol mg/dL < 3.0 11/03/19 11/04/19 11/04/19 08:18 07:09 07:09 WBC RBC Hgb Hct MCV MCH MCHC RDW Std Deviation RDW Coeff of Eileen Plt Count MPV Immature Gran % (Auto) Neut % (Auto) Lymph % (Auto) Upson % (Auto) Eos % (Auto) Baso % (Auto) Immature Gran # (Auto) Neut # (Auto) Lymph # (Auto) Upson # (Auto) Eos # (Auto) Baso # (Auto) Sodium Potassium Chloride Carbon Dioxide Anion Gap BUN Creatinine Est Cr Clr Drug Dosing Est GFR ( Amer) Est GFR (Non-Af Amer) BUN/Creatinine Ratio Glucose POC Glucose 130 H Estimat Average Glucose 128 Hemoglobin A1c 6.1 H Calcium Total Bilirubin 0.6 Direct Bilirubin 0.1 AST 30 ALT 185 H Alkaline Phosphatase 84 Total Protein 8.5 H Albumin 4.4 Globulin Albumin/Globulin Ratio Lipase TSH Urine Color Urine Appearance Urine pH Ur Specific [place] Urine Protein Urine Glucose (UA) Urine Ketones Urine Blood Urine Nitrite Urine Bilirubin Urine Urobilinogen Ur Leukocyte Esterase Salicylates Urine Opiates Screen Ur Methadone, Qual Acetaminophen Urine Barbiturates Ur Phencyclidine (PCP) U Amphetamin/Meth Scrn MDMA (Ecstasy) Screen U OH-Alprazolam Confrm U Benzodiazepines Scrn 7-Amino Clonazepam Ur Nordiazepam Confirm U OH-ethylflurazepam U Lorazepam Cnf GC/MS U Oxazepam Confm GC/MS Ur Temazepam Confirm U OH-Triazolam Confirm U OH-Midazolam Confirm Ur Cocaine Metabolite U Marijuana (THC) Screen Drug Screen Comment Ethyl Alcohol mg/dL 11/04/19 11/05/19 11/06/19 07:31 08:13 07:57 WBC RBC Hgb Hct MCV MCH MCHC RDW Std Deviation RDW Coeff of Eileen Plt Count MPV Immature Gran % (Auto) Neut % (Auto) Lymph % (Auto) Upson % (Auto) Eos % (Auto) Baso % (Auto) Immature Gran # (Auto) Neut # (Auto) Lymph # (Auto) Upson # (Auto) Eos # (Auto) Baso # (Auto) Sodium Potassium Chloride Carbon Dioxide Anion Gap BUN Creatinine Est Cr Clr Drug Dosing Est GFR ( Amer) Est GFR (Non-Af Amer) BUN/Creatinine Ratio Glucose POC Glucose 118 H 130 H 128 H Estimat Average Glucose Hemoglobin A1c Calcium Total Bilirubin Direct Bilirubin AST ALT Alkaline Phosphatase Total Protein Albumin Globulin Albumin/Globulin Ratio Lipase TSH Urine Color Urine Appearance Urine pH Ur Specific [place] Urine Protein Urine Glucose (UA) Urine Ketones Urine Blood Urine Nitrite Urine Bilirubin Urine Urobilinogen Ur Leukocyte Esterase Salicylates Urine Opiates Screen Ur Methadone, Qual Acetaminophen Urine Barbiturates Ur Phencyclidine (PCP) U Amphetamin/Meth Scrn MDMA (Ecstasy) Screen U OH-Alprazolam Confrm U Benzodiazepines Scrn 7-Amino Clonazepam Ur Nordiazepam Confirm U OH-ethylflurazepam U Lorazepam Cnf GC/MS U Oxazepam Confm GC/MS Ur Temazepam Confirm U OH-Triazolam Confirm U OH-Midazolam Confirm Ur Cocaine Metabolite U Marijuana (THC) Screen Drug Screen Comment Ethyl Alcohol mg/dL Hospital Course (1) Anxiety: 11/01/19 -The patient has been admitted to the [facility] behavioral health unit and has been placed on close observations. He has been referred for individual, group and activity therapies and will be encouraged to work on developing improved individual coping strategies. -The patient has been taught several mindfulness techniques that he may choose to use to interrupt intrusive, alien, obsessive thoughts. The patient was able to practice these during today's encounter. -He indicates that he is responded favorably to clonidine in the past. We will begin clonidine 0.1 mg twice daily standing dose for anxiety. -The patient meets criteria for several anxiety disorders, including generalized anxiety disorder, social anxiety disorder, and obsessive-compulsive disorder. We have added Luvox 50 mg a day and will titrate as indicated as a treatment for his obsessive-compulsive symptoms. 11/02/19 maintained luvox at 50mg a day for now and titrate as approapite if nasuea resolves planned to convert klonpin to 0.25mg bid scheduled with aim to lower tin steps, hwoever pt otbained prn doses only (one 0.25mg a day ) lately and pt becoming more content with this 11/02 - pt content with 0.25mg prn up to bi with tending to take once a day, aiing to wean fully off this medication - raised luvox to 75mg hs but monitor for s/e 11/03 - Continue current medication regimen; adjusting aripiprazole to HS dosing due to patient's reports of increased fatigue - Pt did not utilize any prn clonazepam throughout the day yesterday - patient continuing to verbalize desire to discontinue the medication by time of discharge - Pt reporting increased anxiety and irritability today, but believes this may be related to sleep difficulties - Continues to refuse family meeting, but willing to continue outpatient psychiatric treatment on discharge 11/04 - Luvox titrated to 100mg qHS - continue remainder of psychotropic medication regimen - Pt did request prn clonazepam last evening as he reported a panic attack awakening him from sleep - Pt does endorse ongoing anxiety, but states he is aware of coping strategies he can use to combat this - Continues to decline family involvement; after care appointments now in place for outpatient psychiatric treatment 11/05 -Patient does not want to continue clonidine as he does not feel it has been effective, so we will discontinue it. Discontinue clonazepam as he has tolerated the taper well, and he requests a prescription for hydroxyzine as needed. -30-day prescriptions issued for fluvoxamine and aripiprazole. -Follow-up with outpatient psychiatrist and therapist as scheduled. (2) Depression: 11/01/19 -Patient reports a lifelong history of intermittent, recurrent depression and says that he has not felt that he has been free of depression "for many years." His symptoms of depression reportedly include depressed mood, apathy, low self- esteem, anhedonia, and poor concentration. -Given that the patient has been tried on multiple different antidepressant medications without reported results, we will try Luvox, I medications the patient reports that he has not taken previously. It is hoped that Luvox will help both with depression and with OCD in his case. We are beginning Luvox at 50 mg at bedtime and will titrate as tolerated. -Aripiprazole is being added at 5 mg daily as an adjunct for Luvox and, also, because it may help with the patient's obsessive-compulsive features. 11/02/19 removed SI precautions in afternoon maintainerd meds as per 11/01/1911/03 - Continue Luvox at 75mg qHS - consider further titration at indicated/tolerated - Will adjust Aripiprazole dosing to HS at patient's request, as he believes it may be contributing to morning fatigue - Pt denying SI today, but reports feeling "more dumont" - Verbalizes willingness to continue outpatient psychiatric treatment with Dr. Mcclain for medication management and Dr. Yenny Jett for therapy 11/04 - Luvox increased to 100mg for this evening - can continue further titration on an outpatient basis - Continue remainder of psychotropic medication regimen - Denying SI today. Pt verbalized approval of discharge tomorrow, as he has several upcoming outpatient appointments scheduled for the next few days (3) Insomnia: 11/01/19 -Patient reports that he has chronic difficulty with sleeping. He reports that he tends to fall asleep fairly well, but then awakens multiple times during the night, usually briefly, but his estimate is that he may awaken between 10 and 20 times during the night. He has a history of sleep apnea and seems to be seeking a solution other than CPAP. -The patient's insomnia clearly contributes to his depression and anxiety. We will offer him a trial of Sonata at bedtime while actively encouraging him to reconsider his decision not to use CPAP. -The patient has been educated regarding the risks associated with untreated obstructive sleep apnea. 11/02 - used CPAP last night, sonata taken, sleep ligth and feeling tired today. plan as above and considder further adjsutment of meds if sleep/eenrgy level not improving 11/03 - Continue MNPR for CPAP - Continued education on treatment of sleep apnea, importance of compliance with CPAP and ongoing utilization of Sonata as needed for insomnia 11/04 - Pt reporting several nights of Sonata use has been ineffective for sleep. Pt inquired about Ambien CR, stating this has been discussed with previous providers. Reviewed risks, benefits, and potential side effects associated with the medication - including black box warning for complex sleep behaviors such as sleep-walking/driving or engaging in potentially harmful activities while sleeping. Pt verbalized understanding of these risks and is agreeable with trial of the medication. Will initiate at 6.25mg this evening. - Continue to encourage use of CPAP, maintain MNPR for this as well 11/05 -patient reports Sonata has been ineffective, so we will discontinue it. He is requesting a trial of Ambien CR which he reports has been helpful in the past. Reviewed risks of PHYSICIAN GENERAL INTERNAL MEDICINE and respiratory depression, especially given his obstructive sleep apnea, and recommendations to discontinue benzodiazepines and avoid other centrally sedating medications, and to use Ambien only for short- term treatment. He expressed understanding and agreement. Checked PDMP, last controlled substance prescription was filled 10/03/2019 for lorazepam 1 mg #45 (15 days) from Dr. Mcclain. (4) Obesity (BMI 30-39.9): 11/01/19 -The patient has been educated regarding the importance of weight loss, particularly with in the context of his obstructive sleep apnea. He has been advised that weight loss may help relieve symptoms of obstructive sleep apnea. -Within this context, the patient is concerned about medications that may cause weight gain. He is encouraged to apply healthy food choices and portion control, combined with regular exercise. -The patient has been placed on a low carbohydrate diet. 11/01 - addressed resistance to sleep apnea (5) Elevated LFTs: 11/01/19 -The patient's elevated liver functions are noted. The patient's liver enzymes were within normal limits as recently as a month ago. This may be a medication effect, and the plan is to repeat the studies and 3 days. There is a past history of pancreatitis, cholecystitis, cholelithiasis, and choledocholithiasis," as well as a current history of fatty liver. 11/02/19 stopped tyl prn order and replaced with advil prn order and labs on 11/03 as above 11/03 - LFTs repeated with significant improvement noted - AST within normal range at 30 (464 on 10/30); ALT still elevated at 185 (724 on 10/30) - Continue to avoid hepatotoxic agents; PCP appointment scheduled for 11/06 (6) Type 2 diabetes mellitus: 11/01/2019 -Patient reports that his diabetes is diet controlled. His blood sugar was somewhat elevated at admission. I have ordered a type 2 diabetes low carbohydrate diet and we will continue to monitor his blood sugars daily per waived testing. 11/02/19 checking glucose levels and ordered Hgb A1C for 11/03 am labs 11/03 - Estimated average glucose - 128 - Hgb A1c - 6.1%; POC glucose this morning was 118 - PCP follow-up on 11/06 and continuing T2DM carb consistent diet as above Mental Health & Subst Abuse Tx Psychiatrist Name of Psychiatrist: [facility] - Dr. Mcclain Psychiatrist's Date of Appointment with Psychiatrist: 11/11/19 Time of Appointment with Psychiatrist: 12:00 Psychiatric Appointment Comment: [address], [address], [place] Therapist Name of Therapist: Dr. Yenny Jett Therapist's Date of Therapist Appointment: 11/08/19 Time of Therapist Appointment: 12pm Therapy Appointment Comment: [address] [facility] [id number], [place] [address] Him Specialist Name of Him Specialist: Student Care and Advocacy Phone Number for Him Specialist: [phone] Time of Appointment with Him Specialist: Contact if you need assistance with classes/transitioning to school Case Management Appointment Comment: 120 Replaced By [facility] Post Discharge Appointments Primary Care Physician Name Of Family Doctor: [facility] - Dr. Bradley Aden Primary Care Date of Appointment with PCP: 11/07/19 Time of Appointment with PCP: 9:20 a.m. Provider Appointment Comment: [facility] Smoking Cessation Counseling Tobacco Cessation Medication Prescribed at Discharge: Not Applicable/Non-Smoker Contact Information Discharge Discharge [address]: [address] [place] [address], [address] [address] Discharge Plan Discharge Items Patient Disposition: Home - Self-Care Reason For Visit: BIPOLAR DISORDER Discharge Diagnosis: Depression, anxiety Activity: Per Instructions section Non-emergency contact: Psychiatrist and Therapist Call non-emergency contact if: you have any medication questions and your symptoms worsen Follow-up/Referrals: Bradley Aden [Primary Care Provider] - Diet: Carb Consistent or DM2 Addtl Attending Provider Instructions: SPECIAL CARE INSTRUCTIONS: 1. Follow through with your scheduled aftercare appointments. If unable to keep an appointment, please call to reschedule. 2. Take your medication only as prescribed. Medication should not be changed or stopped without the approval of your doctor. In the event of worsening symptoms or concerns about side effects, contact your doctor immediately. 3. Utilize new healthy coping skills, anger management skills, and stress management skills learned during your hospitalization. Journal feelings and process them with a support person. Identify stressors or situations that may result in relapse, deterioration or inappropriate behaviors and develop a plan to deal with those issues. 4. If your coping skills are ineffective and you are in crisis, contact your outpatient providers for direction. If unable to reach your providers, please call the CAN HELP LINE AT or go to the closest Emergency Room. 5. Avoid alcohol and un-prescribed drugs. 6. You have been provided with the Mental Health Advance Directives Pamphlet for your review. AFTERCARE APPOINTMENTS: * Please call your insurance company prior to your scheduled appointment to confirm your aftercare providers are covered. Take your insurance information to your appointments. WHO TO CALL AND WHEN: Medical Emergencies: For questions or emergencies related to your hospital stay, please contact the Inpatient Behavioral Health Unit at [phone]. A manager shipping is on-call 12/12 for the Behavioral Health Unit for emergencies At any time you feel your situation is an emergency, you may also call 911 immediately. Your Doctors Instructions noted above were prepared by provider Silvia Rosado MD. Pending Studies at Discharge: No Stand-Alone Forms: My [employer], Smoking Cessation, Suicide Prevention Resources Medications and DC Order Prescriptions: New aripiprazole [Abilify] 5 mg Tablet 5 mg PO HS Qty: 30 RF: 0 fluvoxamine 100 mg tablet 100 mg PO HS Qty: 30 RF: 0 zolpidem [Ambien CR] 6.25 mg tablet,ext release multiphase 6.25 mg PO HS PRN (Reason: insomnia) Qty: 7 RF: 0 hydroxyzine HCl 25 mg Tablet 25 mg PO BID PRN (Reason: anxiety) Qty: 14 RF: 0 Continued valsartan 80 mg Tablet 80 mg PO DAILY RF: 0 lamotrigine 100 mg Tablet 100 mg PO BID RF: 0 fluticasone propionate 50 mcg/actuation [place],Suspension 1 spray INTRANASAL DAILY RF: 0 ipratropium bromide 0.03 % [place],Non-Aerosol 2 spray INTRANASAL BID PRN (Reason: Congestion) RF: 0 Discontinued bupropion HCl 150 mg Tablet Sustained-Release 12 Hr 150 mg PO DAILY RF: 0 clonazepam 0.5 mg Tablet 0.5 mg PO TID PRN (Reason: Anxiety) RF: 0 Discharge Orders: Discharge Order (Routine); Ordered 11/06/19 Ordered By: Silvia Rosado Admission Data Admit Date/Time: 10/31/19 15:29 Attending Provider: Kade Duran Admit Provider: Silvia Rosado Primary Care Provider: Bradley Aden Other Interventions: PSY Interdisciplinary Discharge Planning Last Done: 11/05/19 16:30 Coding Level of Care Code 57832 D/C day mgmt > 30 min Diagnoses Anxiety F41.9 Depression F32.9 Insomnia G47.00 Obesity (BMI 30-39.9) E66.9 Elevated LFTs R79.89 Type 2 diabetes mellitus E11.9
[2019-11-06] MEDS ORDERED: DESTROY THIS MEDICATION ONE (10:21)
== END 2019-11-06 10:50 | disposition home or self-care (01) | DRG 880 ==
LOC: ED 09:44 → 3S 15:29

== ENCOUNTER 2021-05-22 12:36 | Inpatient (IN) ==
--- NOTE | 2021-05-22 13:29 | Emergency Department Note ---
History of Present Illness General Chief complaint: Mental Health Evaluation Stated complaint: MENTAL HEALTH EVAL Time Seen by Provider: 05/22/21 13:17 History of Present Illness Provider complaint: Mental health evaluation Maximum Pain Intensity: 0 46-year-old male with history of insomnia, manic bipolar type I, depression, and anxiety presents emergency department for mental health evaluation. Patient states he is depressed and wants to kill himself. Patient states he has a plan to overdose on his pills at home specifically his Klonopin. [facility]. He denies any alcohol abuse. He denies any access to any firearms. Home Medications Medication Instructions Recorded Confirmed Type bupropion HCl 200 mg tablet,12 hr 150 mg PO DAILY 11/13/20 03/25/21 History sustained-release hydroxyzine pamoate 25 mg capsule 25 mg PO TID PRN 01/01/21 03/25/21 History (Vistaril) propranolol 10 mg tablet 10 mg PO DAILY 01/01/21 03/25/21 History buspirone 10 mg tablet 10 mg PO TID 03/15/21 03/25/21 History clonidine HCl 0.1 mg tablet 0.1 mg PO BID 03/15/21 03/25/21 History doxepin 10 mg capsule 10 mg PO HS 03/15/21 03/25/21 History lorazepam 0.5 mg tablet (Ativan) 0.5 mg PO DAILY 03/15/21 03/25/21 History amlodipine 10 mg tablet 10 mg PO DAILY 05/21/21 05/21/21 History bupropion HCl 300 mg 24 hr tablet, 300 mg PO DAILY 05/21/21 05/21/21 History extended release clonazepam 0.5 mg tablet 0.5 mg PO BID 05/21/21 05/21/21 History fluticasone propionate 50 2 spray INTRANASAL DAILY 05/21/21 05/21/21 History mcg/actuation nasal spray,suspension quetiapine 200 mg tablet 200 mg PO HS 05/21/21 05/21/21 History venlafaxine 37.5 mg 37.5 mg PO DAILY 05/21/21 05/21/21 History capsule,extended release 24 hr Allergies Allergy/AdvReac Type Severity Reaction Status Date / Time house dust mite Allergy Unknown Unknown Verified 03/15/21 18:41 mirtazapine [From Remeron] AdvReac Severe pt states Verified 03/15/21 18:41 altered mental status sulfamethoxazole AdvReac Severe pt states Verified 03/15/21 18:41 [From Bactrim] altered mental status trimethoprim [From Bactrim] AdvReac Severe pt states Verified 03/15/21 18:41 altered mental status chlordiazepoxide AdvReac Intermediate ANGRY/AGGRE Verified 03/15/21 18:41 SSIVE nefazodone [From Serzone] AdvReac Intermediate panic Verified 03/15/21 18:41 attacks hydrochlorothiazide AdvReac Confusion Verified 03/15/21 18:41 Past Med/Surg History Medical History (Updated 05/22/21 @ 14:28 by Alirio Lucio) Acute cholecystitis Avascular necrosis Back pain Carbuncle of chest wall Choledocholithiasis Cholelithiasis Dysphagia Gastritis History of acute pancreatitis History of ECG 25-FEB-2018 showed sinus tachycardia rate 101, otherwise normal ECG. When compared with ECG of 25-JAN-2018, No significant change was found Hypercalcemia Panic anxiety syndrome Sinus tachycardia Subclinical hypothyroidism Vitamin D deficiency Surgical History History of biliary duct stent placement History of esophagogastroduodenoscopy (EGD) (05/2015) Hx of cholecystectomy Hx of colonoscopy Family History Other Cancer Gallbladder disease Heart disease Social History Smoking Status: Never smoker Tobacco Type: Pipe Second Hand Exposure: No; Hx Alcohol Use: No Hx Substance Use: No Preferred Language: Bruneian Communication Ability: Effective Visual Impairment: No Limitations Hearing Ability: Normal Maintenance Plumber Required: No Beliefs That Will Affect Care: None marital status: Single Current Living Situation: Alone current occupational status: student Feels Safe at Home: Yes Assistive Devices: CPAP and Glasses Review of Systems A total of 10 systems reviewed and were otherwise negative Physical Exam Vital Signs Vital Signs - 24 hr 05/22/21 12:38 Temperature 36.6 C Temperature Source Temporal Artery Scan Pulse Rate 126 H Respiratory Rate 20 Respiratory Effort / Characteristics Non-Labored Respiratory Depth Normal Blood Pressure 148/94 H Blood Pressure Mean 112 Pulse Oximetry 96 Oxygen Delivery Method Room Air Sepsis Recent Fever Within 48 Hours No Sepsis New/Unexplained Change in Mental Status N/A Sepsis Action Taken by Nursing No Action Required Physical Exam GENERAL: He is oriented to person, place, and time. He appears well-developed and well-nourished. He does not appear distressed. HENT: Exam performed. - Head: Normocephalic and atraumatic. - Right Ear: External ear normal. No mastoid tenderness. - Left Ear: External ear normal. No mastoid tenderness. - Mouth/Throat: The oropharynx is clear and moist. No trismus in the jaw. No dental abscesses or uvula swelling. No oropharyngeal exudate or tonsillar abscesses. EYES: Conjunctivae and EOM are normal. Pupils are equal, round, and reactive to light. Right eye exhibits no discharge. Left eye exhibits no discharge. No scleral icterus. NECK: Normal range of motion. Neck supple. No JVD present. No spinous process tenderness present. No carotid bruit present. No rigidity. No tracheal deviation and normal range of motion present. No Brudzinski's sign and no Kernig's sign noted. CV: Normal rate, regular rhythm, normal heart sounds and intact distal pulses. There is no peripheral edema. Palpable radial pulses bue. PULM/CHEST: Effort normal and breath sounds normal. No respiratory distress. No stridor. He has no wheezes. He has no rales. - Chest Wall: He exhibits no tenderness. ABD: The abdomen is soft. Bowel sounds are normal. He has no distension. No mass is present. There is no tenderness. There is no rebound, no guarding, no Suresh's sign and no tenderness at McBurney's point. Rovsig negative. MUSC/SKEL: Normal range of motion. There is no peripheral edema, tenderness or deformity. LYMPH: No cervical adenopathy. NEURO: He is alert and oriented to person, place, and time. He has normal strength. No cranial nerve deficit or sensory deficit. Coordination and gait normal. GCS eye subscore is 4. GCS verbal subscore is 5. GCS motor subscore is 6. Cerebellar tests wnl. SKIN: Skin is warm and dry. He is not diaphoretic. PSYCH: Patient appears depressed. Positive suicidal ideation. Course Course 1317: The patient was evaluated in room A6. A complete history and physical exam was performed EMR reviewed. Patient has multiple visits to the emergency department for mental health crises. Patient was most recently seen in the emergency department yesterday And was discharged home. 1427: Case signed out to Dr. Rios. Patient is voluntary to be admitted for inpatient psychiatric help. Medical Decision Making Laboratory Data Result diagrams: 05/22/21 13:47 05/22/21 13:47 Lab Results 05/22/21 05/22/21 05/22/21 Range/Units 13:32 13:47 13:47 WBC 5.15 (4.8-10.8) K/uL RBC 5.49 (4.7-6.1) M/uL Hgb 16.9 (14.0-18.0) g/dL Hct 47.3 (42-52) % MCV 86.2 (80-100) fL MCH 30.8 (25-34) pg MCHC 35.7 (32-36) g/dL RDW Std Deviation 40.4 (36.4-46.3) fL RDW Coeff of Eileen 12.9 (11.5-14.5) % Plt Count 203 (130-400) K/uL MPV 9.9 (7.4-10.4) fL Immature Gran % (Auto) 0.2 % Neut % (Auto) 57.8 % Lymph % (Auto) 29.7 % Miller % (Auto) 7.8 % Eos % (Auto) 4.3 % Baso % (Auto) 0.2 % Neut # (Auto) 2.98 (1.4-6.5) K/uL Lymph # (Auto) 1.53 (1.2-3.4) K/uL Miller # (Auto) 0.40 (0.11-0.59) K/uL Eos # (Auto) 0.22 (0-0.5) K/uL Baso # (Auto) 0.01 (0-0.2) K/uL Immature Gran # (Auto) 0.01 (0.00-0.02) K/uL Sodium 139 (136-145) mmol/L Potassium 4.1 (3.5-5.1) mmol/L Chloride 105 (98-107) mmol/L Carbon Dioxide 29 (21-32) mmol/L Anion Gap 5.0 (3-11) BUN 8 (7-18) mg/dl Creatinine 1.03 (0.6-1.4) mg/dl Est Cr Clr Drug Dosing 102.8 ml/min Est GFR ( Amer) 99.1 ml/min Est GFR (Non-Af Amer) 85.5 ml/min BUN/Creatinine Ratio 7.6 L (10-20) Glucose 130 H (70-99) mg/dl Calcium 10.6 H (8.5-10.1) mg/dl AST 22 (15-37) U/L ALT 65 (12-78) Albumin 4.4 (3.4-5.0) gm/dl Urine Color Urine Appearance (Clear) Urine pH (4.5-7.5) Ur Specific [place] (1.000-1.030) Urine Protein (Negative) Urine Glucose (UA) (Negative) Urine Ketones (Negative) Urine Blood (Negative) Urine Nitrite (Negative) Urine Bilirubin (Negative) Urine Urobilinogen (Negative) Ur Leukocyte Esterase (Negative) Urine Opiates Screen (Neg) Ur Methadone, Qual (Neg) Urine Barbiturates (Neg) Ur Phencyclidine (PCP) (Neg) U Amphetamin/Meth Scrn (Neg) MDMA (Ecstasy) Screen (Neg) U Benzodiazepines Scrn (Neg) Ur Cocaine Metabolite (Neg) U Marijuana (THC) Screen (Neg) SARS-CoV-2, RNA, NAAT NEGATIVE (NEGATIVE) 05/22/21 05/22/21 Range/Units 13:51 13:51 WBC (4.8-10.8) K/uL RBC (4.7-6.1) M/uL Hgb (14.0-18.0) g/dL Hct (42-52) % MCV (80-100) fL MCH (25-34) pg MCHC (32-36) g/dL RDW Std Deviation (36.4-46.3) fL RDW Coeff of Eileen (11.5-14.5) % Plt Count (130-400) K/uL MPV (7.4-10.4) fL Immature Gran % (Auto) % Neut % (Auto) % Lymph % (Auto) % Miller % (Auto) % Eos % (Auto) % Baso % (Auto) % Neut # (Auto) (1.4-6.5) K/uL Lymph # (Auto) (1.2-3.4) K/uL Miller # (Auto) (0.11-0.59) K/uL Eos # (Auto) (0-0.5) K/uL Baso # (Auto) (0-0.2) K/uL Immature Gran # (Auto) (0.00-0.02) K/uL Sodium (136-145) mmol/L Potassium (3.5-5.1) mmol/L Chloride (98-107) mmol/L Carbon Dioxide (21-32) mmol/L Anion Gap (3-11) BUN (7-18) mg/dl Creatinine (0.6-1.4) mg/dl Est Cr Clr Drug Dosing ml/min Est GFR ( Amer) ml/min Est GFR (Non-Af Amer) ml/min BUN/Creatinine Ratio (10-20) Glucose (70-99) mg/dl Calcium (8.5-10.1) mg/dl AST (15-37) U/L ALT (12-78) Albumin (3.4-5.0) gm/dl Urine Color Yellow Urine Appearance Clear (Clear) Urine pH 6.5 (4.5-7.5) Ur Specific [place] 1.011 (1.000-1.030) Urine Protein Negative (Negative) Urine Glucose (UA) Negative (Negative) Urine Ketones Negative (Negative) Urine Blood Negative (Negative) Urine Nitrite Negative (Negative) Urine Bilirubin Negative (Negative) Urine Urobilinogen Negative (Negative) Ur Leukocyte Esterase Negative (Negative) Urine Opiates Screen Neg (Neg) Ur Methadone, Qual Neg (Neg) Urine Barbiturates Neg (Neg) Ur Phencyclidine (PCP) Neg (Neg) U Amphetamin/Meth Scrn Neg (Neg) MDMA (Ecstasy) Screen Pos H (Neg) U Benzodiazepines Scrn Neg (Neg) Ur Cocaine Metabolite Neg (Neg) U Marijuana (THC) Screen Neg (Neg) SARS-CoV-2, RNA, NAAT (NEGATIVE) MDM Narrative 1317: The patient was evaluated in room A6. A complete history and physical exam was performed EMR reviewed. Patient has multiple visits to the emergency department for mental health crises. Patient was most recently seen in the emergency department yesterday And was discharged home. 1427: Case signed out to Dr. iRos. Patient is voluntary to be admitted for inpatient psychiatric help. Impression & Plan Depression with suicidal ideation Discharge Plan Visit Data Chief Complaint: Mental Health Evaluation Stated Complaint: MENTAL HEALTH EVAL ED Provider: Alhaji Rios Discharge Problem: Depression with suicidal ideation Patient Disposition: Still a Patient Forms Stand Alone Forms: My [facility], Suicide Prevention Resources Prescriptions Prescriptions: No Action clonidine HCl 0.1 mg tablet 0.1 mg PO BID RF: 0 doxepin 10 mg capsule 10 mg PO HS RF: 0 buspirone 10 mg tablet 10 mg PO TID RF: 0 lorazepam [Ativan] 0.5 mg tablet 0.5 mg PO DAILY RF: 0 amlodipine 10 mg tablet 10 mg PO DAILY RF: 0 bupropion HCl 300 mg tablet extended release 24 hr 300 mg PO DAILY RF: 0 venlafaxine 37.5 mg capsule,extended release 24hr 37.5 mg PO DAILY RF: 0 fluticasone propionate 50 mcg/actuation spray,suspension 2 spray INTRANASAL DAILY RF: 0 quetiapine 200 mg tablet 200 mg PO HS RF: 0 clonazepam 0.5 mg tablet 0.5 mg PO BID RF: 0 bupropion HCl 200 mg tablet sustained-release 12 hr 150 mg PO DAILY RF: 0 propranolol [Inderal] 10 mg Tablet 10 mg PO DAILY RF: 0 hydroxyzine pamoate [Vistaril] 25 mg Capsule 25 mg PO TID PRN (Reason: Anxiety) RF: 0 Referrals Referrals: Polly Knapp PA-C [Primary Care Provider] -
[2021-05-22 14:04] LABS: Basophils # (auto) 0.01 K/uL (0-0.2); Basophils % (auto) 0.2 %; Eosinophils # (auto) 0.22 K/uL (0-0.5); Eosinophils % (auto) 4.3 %; Hematocrit (blood only) 47.3 % (42-52); Hemoglobin 16.9 g/dL (14.0-18.0); Immature Granulocytes # (auto) 0.01 K/uL (0.00-0.02); Immature Granulocytes % (auto) 0.2 %; Lymphocytes # (auto) 1.53 K/uL (1.2-3.4); Lymphocytes % (auto) 29.7 %; Mean Corpuscular Hemoglobin 30.8 pg (25-34); Mean Corpuscular Hgb Conc 35.7 g/dL (32-36); Mean Corpuscular Volume 86.2 fL (80-100); Mean Platelet Volume 9.9 fL (7.4-10.4); Monocytes % (auto) 7.8 %; Neutrophils # (auto) 2.98 K/uL (1.4-6.5); Neutrophils % (auto) 57.8 %; Platelet Count 203 K/uL (130-400); RDW Coefficient of Variation 12.9 % (11.5-14.5); RDW Standard Deviation 40.4 fL (36.4-46.3); Red Blood Count 5.49 M/uL (4.7-6.1); White Blood Count 5.15 K/uL (4.8-10.8)
[2021-05-22 14:19] LABS: Appearance Urine Clear (Clear); Bilirubin Urine Negative (Negative); Blood Urine Negative (Negative); Color Urine Yellow; Glucose Urine UA Negative (Negative); Ketones Urine Negative (Negative); Leukocyte Esterase Urine Negative (Negative); Nitrite Urine Negative (Negative); Protein Urine Negative (Negative); Specific Gravity Urine 1.011 (1.000-1.030); Urobilinogen Urine Negative (Negative); pH Urine 6.5 (4.5-7.5)
[2021-05-22 14:22] LABS: Amphetamines+Metham, Urine Neg (Neg); Barbiturates, Urine Neg (Neg); Benzodiazepine, Urine Neg (Neg); Cocaine, Urine Neg (Neg); MDMA (Ecstacy), Urine Pos (Neg); Methadone, Urine Neg (Neg); Opiate, Urine Neg (Neg); Phencyclidine, Urine Neg (Neg)
[2021-05-22 14:26] LABS: Albumin Level 4.4 gm/dl (3.4-5.0); BUN Creatinine Ratio 7.6 (10-20); Calcium 10.6 mg/dl (8.5-10.1); Creatinine Clr Calc Pharmacy 102.8 ml/min; Est GFR (African American) 99.1 ml/min; Est GFR (Non-African American) 85.5 ml/min; Potassium 4.1 mmol/L (3.5-5.1)
[2021-05-22 14:35] LABS: Acetaminophen < 2 ug/ml (10-30)
[2021-05-22 14:36] LABS: Salicylate < 1.7 mg/dl (2.8-20)
[2021-05-22 14:37] LABS: Bilirubin,Total 0.3 mg/dl (0.2-1); Globulin 4.2 gm/dl (2.5-4.0); Thyroid Stimulating Hormone 0.797 uIu/ml (0.300-4.500); Total Protein 8.6 gm/dl (6.4-8.2)
[2021-05-22] MEDS ORDERED: ACETAMINOPHEN 325 MG TAB PO STA (14:45)
[2021-05-22] MEDS ORDERED: LORazepam 1 MG TAB SL STA (15:03)
[2021-05-22] MEDS ORDERED: SODIUM CHLORIDE 0.65% NA SOLN 45 ML (OCEAN) PRN (16:03)
[2021-05-22] MEDS ORDERED: MAGNESIUM HYDROXIDE SUSP 30 ML UDC PO PRN (16:03)
[2021-05-22] MEDS ORDERED: hydrOXYzine HCl 25 MG TAB PO PRN (16:03)
[2021-05-22] MEDS ORDERED: ALUMINUM/MAGNESIUM SUSP 30 ML UDC PO PRN (16:03)
--- NOTE | 2021-05-22 18:12 | Emergency Department Note ---
ED Visit Note Patient is a 46-year-old male who was signed out to me pending Tylenol and salicylate level and possible placement. Otherwise medically stable. Per Dr. Lucio admits to suicidal ideations with a plan. Salicylates and Tylenol were negative. Patient was evaluated by 3 [facility]. He was accepted to [facility]. on a 201. Was given 1 dose of Ativan while in the ER due to anxiety. I signed a 201. He was still slightly tachycardic and EKG was obtained and showed a sinus rhythm rate 102, normal axis, no PVCs, QTC 435. Patient was accepted to [facility]. on 201. .
[2021-05-22] MEDS ORDERED: DOXEPIN HCL 25 MG CAPSULE PO SCH (21:00)
[2021-05-22] MEDS: DOXEPIN HCL 10 MG CAPSULE PO SCH (21:37)
[2021-05-22] MEDS: hydrOXYzine HCl 25 MG TAB PO PRN (21:37)
[2021-05-23] MEDS: hydrOXYzine HCl 25 MG TAB PO PRN ×2 (00:04→23:30)
[2021-05-23] MEDS: ACETAMINOPHEN 325 MG TAB PO PRN (01:57)
[2021-05-23] MEDS: clonazePAM 0.5 MG TAB PO PRN (02:27)
--- NOTE | 2021-05-23 11:30 | History & Physical ---
Date of Service May 23, 2021 Impression / Recommendations Impression 46 yo male with a variety of complaints, most pressing his acute suicidal ideation in the setting of not having a regular psychiatric prescriber following change in Dr. Mcclain's office, recurrent ED/hospitalization, then relocation to [facility] and back. He does have documented symptoms of inattention in prior outpatient notes and clearly was more functional when being treated for ADHD but ideally would have formal testing and reviewed with the patient that will likely be a requirement of any new provider. That said, he does have untreated sleep apnea which is likely contributing to all of his symptoms (fatigue, low energy, low motivation) and seems like an appropriate indication for stimulant and safer to start inpatient since BP and P can be monitored. He maintains that he is less anxious on the medication as well and I suspect there may be some degree of high functioning autism spectrum disorder given his lack of awareness of how he is perceived by others and perseveration that was previously felt to be obsessions. He requires inpatient hospitalization for safety and monitoring. (1) Depression with suicidal ideation: (2) Low testosterone: (3) Anxiety: (4) Obstructive sleep apnea: (5) Attention deficit disorder of adult: The patient was admitted to the [facility] ([facility] mental health unit) on q15 min checks (behavioral with suicide precautions) for safety. The patient will participate in group, recreational, and milieu therapies and will be offered additional individual and family sessions as clinically appropriate. Risks/benefits/alternatives were reviewed re: his current medications. Discussion included but was not limited to cardiovascular safety profile of stimulants and klonopin being a controlled substance with risk of dependence, etc. Will resume Adderall at 5 mg po qam and midday after PDMP database query and monitro mood, BP, and for thomas. Confirm testosterone dosing. Inventory Assets Strengths: seeking care, maintains local housing, has family support Needs: outpatient therapist and psychiatrist Risk Factors Assessment Male: Yes : Yes Do You Have Access To A Gun?: No Health Problems: Yes Mental Health Diagnoses: Yes Substance Use Disorders: No Previous Attempt: No (denies but not all hospital records available) Family History of Suicide: No Previous Psychiatric Hospitalization: Yes Protective Factors Assessment : No Employed: No Stable Relationships: No Supportive Family: Yes Good Rapport with Provider: No Psychiatric History Identifying Data TATYANA JUAREZ is a 46-year-old M with an apartment in [place] but recently returned to the area from [facility], has a history of multiple ED visits/psychiatric admission, and was admitted on 05/22/21 16:46 on a 201 voluntary commitment for suicidal ideation with plan to OD on his medications. Chief Complaint "No one listens to me, I have fear, I have ADHD and I couldn't get what I needed. ". History of Present Illness The patient reports he is irritable and "might as well " as feels he cannot function without proper psychiatric care. He reports having to leave school and multiple hospitalizations since stopping Adderall XR that was under the direction of Dr. Mcclain since [address] Mcclain hadn't seen the patient for several months prior to that as no longer accepting his insurance. The patient reports he gets frustrated when no one will listen and accuse him of being a "drug addict" and he describes being "flushed of Ativan" in [place] at a program his family recommended. He perseverates on medications and is difficult to redirect to symptoms and provides a very inconsistent timeline as either confuses inpatient stays/care providers or focusses on the emotion of the story. He denies a history of psychosis or juvenal and maintains that prior diagnoses have been related to side effects of medications (either administration or wi thdrawal). He had poor sleep last night. Appetite is intact. Concentration is poor. Review of chart does outline previous inattentive symptoms that did impact his college education. He had difficulty getting tested for accommodations at the time. He denies hyperactivity. He was recently prescribed Wellbutrin and Seroquel but has been noncompliant with them. He has repeatedly messaged [facility] primary care offices with lengthy medication requests and does swear/express anger but nothing bizarre or threatening. He continues to report no local support, relies on family for money, and doesn't "see a point of being here anymore". He reports having a "long list of pills" so unclear how many bottles he may have returned with him. He is reporting benefit from testosterone injections. His last shot was 05/18/[address] Garrido had increased the dose. He denies paranoia, states it's difficult for him to leave the house as he wonders what others think of him. Social skills have been questionable given length of mental health issues, failure to complete a [employer] degree as an adult after 6 years, states that has only been interested in 1 relationship his entire life (a [employer] student he met online). Past Psychiatric History Previous Psych History: also ADHD dx (no formal testing), schizoaffective disorder, agoraphobia, social anxiety disorder, "I also contacted this [facility]" Current Psychiatric Diagnosis: Bipolar disorder, Anxiety Outpatient Services: no current providers locally, hasn't had a therapist for some time. Previous Psych Admissions: [facility] &03/11 plus previous, [place] 05/11, [place] 11/09, [facility] 11/08 Do You Have Access To A Gun?: No Past Medication Trials: Antidepressants: Wellbutrin, Effexor XR, Zoloft, Prozac, Pristiq, Remeron (allergy), Serzone (allergy), Luvox, Paxil, Cymbalta Antianxiety: Buspar, vistaril, Ativan, Klonopin, Librium (reaction), propranolol, Neurontin Sleep: clonidine, prazosin, Ambien, Sonata, trazodone, Lunesta mood stabilizers: Lamictal, Tegretol, Depakote, Topamax Antipsychotics: Seroquel XR, thorazine, Risperdal, Zyprexa, Abilify, Geodon, Lat uda, trifluoperazine ADHD: Adderall XR, Adderall, Vyvanse, methylphenidate, Concerta Other: Nuvigil for hypersomnia related to sleep apnea, Viagara Allergies Allergy/AdvReac Type Severity Reaction Status Date / Time house dust mite Allergy Unknown Unknown Verified 05/22/21 16:23 mirtazapine [From Remeron] AdvReac Severe pt states Verified 05/22/21 16:23 altered mental status sulfamethoxazole AdvReac Severe pt states Verified 05/22/21 16:23 [From Bactrim] altered mental status trimethoprim [From Bactrim] AdvReac Severe pt states Verified 05/22/21 16:23 altered mental status chlordiazepoxide AdvReac Intermediate ANGRY/AGGRE Verified 05/22/21 16:23 SSIVE nefazodone [From Serzone] AdvReac Intermediate panic Verified 05/22/21 16:23 attacks hydrochlorothiazide AdvReac Confusion Verified 05/22/21 16:23 Home Medications Medication Instructions Recorded Confirmed Type clonazepam 0.5 mg tablet 0.5 mg PO BID 05/21/21 05/22/21 History fluticasone propionate 50 2 spray INTRANASAL DAILY 05/21/21 05/22/21 History mcg/actuation nasal spray,suspension doxepin 10 mg capsule 10 mg PO HS 05/23/21 05/23/21 History Family History Family History of: Depression Alcohol History Hx of Alcohol Use Over the Past 12 Months: No AUDIT Total Score: 0 Smoking Use Have You Smoked or Used Tobacco Products in the Last 30 Days: No tobacco type: cigarettes Smoking Status: Never smoker Substance History Hx of Prescription Med Misuse Over the Past 12 Months: No Hx of Over the Counter Med Misuse Over the Past 12 Months: No Hx of Inhalent Misuse Over the Past 12 Months: No Hx of Organic Substance Use Over the Past 12 Months: No Hx of Illegal Substances/Street Drug Use Over Past 12 Months: No Problems as a Result of Past Substance Use: Life out of Control Personal History Living Arrangements: Apartment Born In: Patient was born in [facility], but moved to [place] with his parents, his brother and his sister as a young child. He was raised by both parents in [place]. Employment Status: Unemployed Marital Status: Single Number Of Children: 0 Beliefs That Will Affect Care: None Hx Legal Problems: No Hx Traumatic Life Events: No Patient History Medical History (Updated 05/23/21 @ 11:23 by Michelle Storey MD) Acute cholecystitis Avascular necrosis Back pain Carbuncle of chest wall Choledocholithiasis Cholelithiasis Dysphagia Gastritis History of acute pancreatitis History of ECG 25-FEB-2018 showed sinus tachycardia rate 101, otherwise normal ECG. When compared with ECG of 25-JAN-2018, No significant change was found Hypercalcemia Panic anxiety syndrome Sinus tachycardia Subclinical hypothyroidism Vitamin D deficiency Surgical History History of biliary duct stent placement History of esophagogastroduodenoscopy (EGD) (05/2015) Hx of cholecystectomy Hx of colonoscopy Family History Other Cancer Gallbladder disease Heart disease Social History Smoking Status: Never smoker Tobacco Type: Pipe Second Hand Exposure: No; Hx Alcohol Use: No Hx Substance Use: No Preferred Language: Polish Communication Ability: Effective Visual Impairment: No Limitations Hearing Ability: Normal 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 he uses nasal spray Review of Systems Review of Systems: All systems reviewed & are unremarkable except as noted in HPI & below Physical Exam Psychiatric: Orientation: alert and oriented x 3 Apperance: appropriately dressed and + disheveled Eye Contact: + poor eye contact Motor Behavior: no abnormal motor movements Speech: + abnormal rate/rhythm/volume of speech (hyperverbal but not pressured) Affect: + depressed affect Mood: + depressed mood and + irritable mood Thought Process: + perseveration Thought Content: reality based without delusions Suicidal Thoughts: denies suicidal intent; + reports suicidal thoughts and + reports suicidal plan (OD on meds) Homicidal Thoughts: denies homicidal thoughts Hallucinations: no auditory hallucinations and no visual hallucinations Cognition: language grossly intact; + attention not intact Estimated Intelligence: consistent with education level Insight: + limited insight Judgement: + limited judgement Vital Signs (Past 24 Hours): Last Vital Signs Temp 36.6 C 05/23/21 07:08 Pulse 94 H 05/23/21 07:09 Resp 16 05/23/21 07:08 BP 121/76 05/23/21 07:09 Pulse Ox 97 05/22/21 16:03 Exam Statement: A physical exam was performed in the ED by Dr. Florian for the purposes of medical clearance. I accept that physical as correct and adequate for the purposes of the inpatient physical exam. Results & Data ([facility]) Laboratory Results Laboratory Results - last 24 hr 05/22/21 05/22/21 05/22/21 13:32 13:47 13:47 WBC 5.15 RBC 5.49 Hgb 16.9 Hct 47.3 MCV 86.2 MCH 30.8 MCHC 35.7 RDW Std Deviation 40.4 RDW Coeff of Eileen 12.9 Plt Count 203 MPV 9.9 Immature Gran % (Auto) 0.2 Neut % (Auto) 57.8 Lymph % (Auto) 29.7 [place] % (Auto) 7.8 Eos % (Auto) 4.3 Baso % (Auto) 0.2 Neut # (Auto) 2.98 Lymph # (Auto) 1.53 [place] # (Auto) 0.40 Eos # (Auto) 0.22 Baso # (Auto) 0.01 Immature Gran # (Auto) 0.01 Sodium 139 Potassium 4.1 Chloride 105 Carbon Dioxide 29 Anion Gap 5.0 BUN 8 Creatinine 1.03 Est Cr Clr Drug Dosing 102.8 Est GFR ( Amer) 99.1 Est GFR (Non-Af Amer) 85.5 BUN/Creatinine Ratio 7.6 L Glucose 130 H Calcium 10.6 H Total Bilirubin 0.3 AST 22 ALT 65 Alkaline Phosphatase 74 Total Protein 8.6 H Albumin 4.4 Globulin 4.2 H Albumin/Globulin Ratio 1.0 TSH 0.797 Urine Color Urine Appearance Urine pH Ur Specific [place] Urine Protein Urine Glucose (UA) Urine Ketones Urine Blood Urine Nitrite Urine Bilirubin Urine Urobilinogen Ur Leukocyte Esterase Salicylates Urine Opiates Screen Ur Methadone, Qual Acetaminophen Urine Barbiturates Ur Phencyclidine (PCP) U Amphetamin/Meth Scrn Urine MDEA MDMA (Ecstasy) Screen MDMA Urine MDMA U Benzodiazepines Scrn Ur Cocaine Metabolite U Marijuana (THC) Screen Ethyl Alcohol mg/dL SARS-CoV-2, RNA, NAAT NEGATIVE 05/22/21 05/22/21 05/22/21 13:47 13:47 13:51 WBC RBC Hgb Hct MCV MCH MCHC RDW Std Deviation RDW Coeff of Eileen Plt Count MPV Immature Gran % (Auto) Neut % (Auto) Lymph % (Auto) [place] % (Auto) Eos % (Auto) Baso % (Auto) Neut # (Auto) Lymph # (Auto) [place] # (Auto) Eos # (Auto) Baso # (Auto) Immature Gran # (Auto) Sodium Potassium Chloride Carbon Dioxide Anion Gap BUN Creatinine Est Cr Clr Drug Dosing Est GFR ( Amer) Est GFR (Non-Af Amer) BUN/Creatinine Ratio Glucose Calcium Total Bilirubin AST ALT Alkaline Phosphatase Total Protein Albumin Globulin Albumin/Globulin Ratio TSH Urine Color Yellow Urine Appearance Clear Urine pH 6.5 Ur Specific [place] 1.011 Urine Protein Negative Urine Glucose (UA) Negative Urine Ketones Negative Urine Blood Negative Urine Nitrite Negative Urine Bilirubin Negative Urine Urobilinogen Negative Ur Leukocyte Esterase Negative Salicylates < 1.7 L Urine Opiates Screen Ur Methadone, Qual Acetaminophen < 2 L Urine Barbiturates Ur Phencyclidine (PCP) U Amphetamin/Meth Scrn Urine MDEA MDMA (Ecstasy) Screen MDMA Urine MDMA U Benzodiazepines Scrn Ur Cocaine Metabolite U Marijuana (THC) Screen Ethyl Alcohol mg/dL < 3.0 SARS-CoV-2, RNA, NAAT 05/22/21 05/22/21 13:51 13:51 WBC RBC Hgb Hct MCV MCH MCHC RDW Std Deviation RDW Coeff of Eileen Plt Count MPV Immature Gran % (Auto) Neut % (Auto) Lymph % (Auto) [place] % (Auto) Eos % (Auto) Baso % (Auto) Neut # (Auto) Lymph # (Auto) [place] # (Auto) Eos # (Auto) Baso # (Auto) Immature Gran # (Auto) Sodium Potassium Chloride Carbon Dioxide Anion Gap BUN Creatinine Est Cr Clr Drug Dosing Est GFR ( Amer) Est GFR (Non-Af Amer) BUN/Creatinine Ratio Glucose Calcium Total Bilirubin AST ALT Alkaline Phosphatase Total Protein Albumin Globulin Albumin/Globulin Ratio TSH Urine Color Urine Appearance Urine pH Ur Specific [place] Urine Protein Urine Glucose (UA) Urine Ketones Urine Blood Urine Nitrite Urine Bilirubin Urine Urobilinogen Ur Leukocyte Esterase Salicylates Urine Opiates Screen Neg Ur Methadone, Qual Neg Acetaminophen Urine Barbiturates Neg Ur Phencyclidine (PCP) Neg U Amphetamin/Meth Scrn Neg Urine MDEA Pending MDMA (Ecstasy) Screen Pos H MDMA Pending Urine MDMA Pending U Benzodiazepines Scrn Neg Ur Cocaine Metabolite Neg U Marijuana (THC) Screen Neg Ethyl Alcohol mg/dL SARS-CoV-2, RNA, NAAT Diagnostic Findings EKG--sinus tachy Current Inpatient Medications Current Inpatient Medications: Current Inpatient Medications Acetaminophen (Acetaminophen 325 Mg Tab) 650 mg PO Q4H PRN PRN Reason: Headache or Minor Fever Stop: 06/21/21 16:02 Last Admin: 05/23/21 01:57 Dose: 650 mg Documented by: Al Hydrox/Mg Hydrox/Simethicone (Aluminum/Magnesium Susp 30 Ml Udc) 30 ml PO Q4H PRN PRN Reason: GI Upset Stop: 06/21/21 16:02 Amphetamine/Dextroamphetamine (Amphetamine Asp/Sulf/Dextramph 20 Mg Tab) 5 mg PO [id number] MAYO Stop: 06/06/21 13:59 Bismuth Subsalicylate (Bismuth Subsalicylate Liqd 236 Ml) 15 ml PO PRN PRN PRN Reason: Loose Stool Stop: 06/21/21 16:02 Clonazepam (Clonazepam 0.5 Mg Tab) 0.5 mg PO TID PRN PRN Reason: Anxiety Stop: 06/21/21 16:08 Last Admin: 05/23/21 02:27 Dose: 0.5 mg Documented by: Doxepin HCl (Doxepin Hcl 10 Mg Capsule) 10 mg PO HS MAYO Stop: 06/21/21 20:59 Last Admin: 05/22/21 21:37 Dose: 10 mg Documented by: Hydroxyzine HCl (Hydroxyzine Hcl 25 Mg Tab) 50 mg PO HSZ PRN PRN Reason: Insomnia Stop: 06/21/21 16:02 Last Admin: 05/23/21 00:04 Dose: 50 mg Documented by: Hydroxyzine HCl (Hydroxyzine Hcl 25 Mg Tab) 25 mg PO Q4H PRN PRN Reason: Anxiety Stop: 06/21/21 16:02 Magnesium Hydroxide (Magnesium Hydroxide Susp 30 Ml Udc) 30 ml PO DAILY PRN PRN Reason: Constipation Stop: 06/21/21 16:02 Sodium Chloride (Sodium Chloride 0.65% Na Soln 45 Ml ([place])) 1 - 2 sprays NA PRN PRN PRN Reason: Nasal Dryness/Congestion Stop: 06/21/21 16:02 Last Admin: 05/22/21 20:46 Dose: 2 sprays Documented by:
[2021-05-23] MEDS: AMPHETAMINE ASP/SULF/DEXTRAMPH 20 MG TAB PO SCH (14:06)
[2021-05-23] MEDS: DOXEPIN HCL 10 MG CAPSULE PO SCH (21:54)
[2021-05-24] MEDS: clonazePAM 0.5 MG TAB PO PRN (03:02)
--- NOTE | 2021-05-24 07:31 | Electrocardiogram Report ---
Test Reason : Blood Pressure : / mmHG Vent. Rate : 102 BPM Atrial Rate : 102 BPM P-R Int : 162 ms QRS Dur : 094 ms QT Int : 334 ms P-R-T Axes : 054 044 062 degrees QTc Int : 435 ms Sinus tachycardia Possible Left atrial enlargement Borderline ECG When compared with ECG of 07-MAR-2021 03:35, No significant change was found Confirmed by Clovis Osman ([id number]) on 05/24/2021 7:31:00 AM Referred By: REFERRED SELF Confirmed By:Clovis Osman
[2021-05-24] MEDS: AMPHETAMINE ASP/SULF/DEXTRAMPH 20 MG TAB PO SCH ×2 (07:53→14:28)
--- NOTE | 2021-05-24 09:15 | Psychiatric Progress Note ---
Date of Service May 24, 2021 Impression / Recommendations Impression 46 yo male with extensive past medication trials and utilization of the ED reportedly for anxiety/panic and suicidal ideation. Presented to ED twice within 24 hr period with overwhelm and seeking admission. No local support or providers other than [facility] P[facility]/specialists as just returned from [facility]. He remains perseverative on medications and lacks awareness of how his social interactions are perceived by others. 05/24/21: minimal improvement, remains focussed on his sleep and reminded he has sleep apnea. (1) Depression with suicidal ideation: (2) Low testosterone: (3) Anxiety: (4) Obstructive sleep apnea: (5) Attention deficit disorder of adult: 05/24/21: titrate Adderall to 10 mg BID this pm, increase doxepin to 25 mg (previously effective dose 50 mg). Encouraged group participation. 05/23/21: The patient was admitted to the [facility] ([facility]) on q15 min checks (behavioral with suicide precautions) for safety. The patient will participate in group, recreational, and milieu therapies and will be offered additional individual and family sessions as clinically appropriate. Risks/benefits/alternatives were reviewed re: his current medications. Discussion included but was not limited to cardiovascular safety profile of stimulants and klonopin being a controlled substance with risk of dependence, etc. Will resume Adderall at 5 mg po qam and midday after PDMP database query and monitro mood, BP, and for thomas. Confirm testosterone dosing. Risk Factors Assessment Male: Yes : Yes Do You Have Access To A Gun?: No Health Problems: Yes Mental Health Diagnoses: Yes Substance Use Disorders: No Previous Attempt: No (denies but not all hospital records available) Family History of Suicide: No Previous Psychiatric Hospitalization: Yes Protective Factors Assessment : No Employed: No Stable Relationships: No Supportive Family: Yes Good Rapport with Provider: No Interval History Identifying Information TATYANA JUAREZ is a 46-year-old M with an apartment in [place] but recently returned to the area from [facility], has a history of multiple ED visits/psychiatric admission, and was admitted on 05/22/21 16:46 on a 201 voluntary commitment for suicidal ideation with plan to OD on his medications. Chief Complaint "I'm very tired, I had weird dreams.". Review of Systems Sleep Information Total Hours of Sleep: 5.5 Sleep Comments: pt given vistaril per rn. pt on q-15 minute checks Meal Information Percent Meal Consumed - Breakfast: 100 Percent Meal Consumed - Lunch: 100 Percent Meal Consumed - Dinner: 75 Subjective Subjective Patient was seen & assessed and interval progress reviewed with treatment team. mainly focussed on sleep today and weird dreams which he attributed yesterday to Vistaril but took it again. He noted some improvement in redirecting his thoughts on Adderall but only lasted 3-4 hours on the 5 mg. Staff are confirming his dose of Testosterone today as due for injections. Physical Exam Psychiatric Orientation: alert and oriented x 3 Apperance: appropriately dressed and + disheveled Eye Contact: + poor eye contact Motor Behavior: no abnormal motor movements Speech: normal rate/rhythm/volume of speech Affect: + depressed affect Mood: + depressed mood and + irritable mood Thought Process: + perseveration Thought Content: reality based without delusions Suicidal Thoughts: + reports suicidal thoughts (more hopelessness rather than intent) Homicidal Thoughts: denies homicidal thoughts Hallucinations: no auditory hallucinations and no visual hallucinations Cognition: language grossly intact; + attention not intact Estimated Intelligence: consistent with education level Insight: + limited insight Judgement: + limited judgement Vital Signs (Past 24 Hours) Last Vital Signs Temp 36.5 C 05/24/21 06:52 Pulse 91 H 05/24/21 06:53 Resp 16 05/24/21 06:52 BP 131/88 05/24/21 06:53 Pulse Ox 97 05/22/21 16:03 Results & Data ([facility]) Current Inpatient Medications Current Inpatient Medications: Current Inpatient Medications Acetaminophen (Acetaminophen 325 Mg Tab) 650 mg PO Q4H PRN PRN Reason: Headache or Minor Fever Stop: 06/21/21 16:02 Last Admin: 05/23/21 01:57 Dose: 650 mg Documented by: Al Hydrox/Mg Hydrox/Simethicone (Aluminum/Magnesium Susp 30 Ml Udc) 30 ml PO Q4H PRN PRN Reason: GI Upset Stop: 06/21/21 16:02 Amphetamine/Dextroamphetamine (Amphetamine Asp/Sulf/Dextramph 20 Mg Tab) 10 mg PO [id number] MAYO Stop: 06/07/21 13:59 Bismuth Subsalicylate (Bismuth Subsalicylate Liqd 236 Ml) 15 ml PO PRN PRN PRN Reason: Loose Stool Stop: 06/21/21 16:02 Clonazepam (Clonazepam 0.5 Mg Tab) 0.5 mg PO TID PRN PRN Reason: Anxiety Stop: 06/21/21 16:08 Last Admin: 05/24/21 03:02 Dose: 0.5 mg Documented by: Doxepin HCl (Doxepin Hcl 25 Mg Capsule) 25 mg PO HS MAYO Stop: 06/23/21 21:59 Fluticasone Propionate (Fluticasone Propionate Na Spr 16 Gm Btl) 2 sprays NA DAILY MAYO Stop: 06/23/21 09:14 Magnesium Hydroxide (Magnesium Hydroxide Susp 30 Ml Udc) 30 ml PO DAILY PRN PRN Reason: Constipation Stop: 06/21/21 16:02 Sodium Chloride (Sodium Chloride 0.65% Na Soln 45 Ml ([place])) 1 - 2 sprays NA PRN PRN PRN Reason: Nasal Dryness/Congestion Stop: 06/21/21 16:02 Last Admin: 05/22/21 20:46 Dose: 2 sprays Documented by: Post Discharge Appointments Primary Care Physician Name Of Family Doctor: Polly Knapp at [facility]
[2021-05-24] MEDS: FLUTICASONE PROPIONATE NA SPR 16 GM BTL SCH (10:04)
[2021-05-24] MEDS: BISMUTH SUBSALICYLATE LIQD 236 ML PO PRN (13:21)
[2021-05-24] MEDS ORDERED: DOXEPIN HCL 25 MG CAPSULE PO SCH (22:00)
[2021-05-25] MEDS: AMPHETAMINE ASP/SULF/DEXTRAMPH 20 MG TAB PO SCH ×2 (06:32→14:24)
[2021-05-25] MEDS: FLUTICASONE PROPIONATE NA SPR 16 GM BTL SCH (08:15)
[2021-05-25] MEDS: BISMUTH SUBSALICYLATE LIQD 236 ML PO PRN (10:17)
[2021-05-25] MEDS ORDERED: TESTOSTERONE CYPIONATE IM 200 MG/ML VIAL IM SCH (11:00)
--- NOTE | 2021-05-25 11:18 | Psychiatric Progress Note ---
Date of Service May 25, 2021 Impression / Recommendations Impression 46 yo male with extensive past medication trials and utilization of the ED reportedly for anxiety/panic and suicidal ideation. Presented to ED twice within 24 hr period with overwhelm and seeking admission. No local support or providers other than [facility]/specialists as just returned from [place]. He remains perseverative on medications and lacks awareness of how his social interactions are perceived by others to a level suggestive of an autism spectrum disorder. 05/25/21: minimal improvement (1) Depression with suicidal ideation: (2) Low testosterone: (3) Anxiety: (4) Obstructive sleep apnea: (5) Attention deficit disorder of adult: 05/25/21: testosterone injection today, increase doxepin to 50 mg hs as retrial (sleep appears improved in quality, he denies). He remains interested in a trial of Vybrid but non-formulary and truthfully his main issues is dysregulation/perseveration so not clear it will target. He cannot even identify core symptoms just talks about medication failures and past somatic symptoms he attributes to anxiety but were likely hyperfocus, med side effects, or more awareness of his sensory issues. 05/24/21: titrate Adderall to 10 mg BID this pm, increase doxepin to 25 mg (previously effective dose 50 mg). Encouraged group participation. 05/23/21: The patient was admitted to the [facility] ([facility] mental health unit) on q15 min checks (behavioral with suicide precautions) for safety. The patient will participate in group, recreational, and milieu therapies and will be offered additional individual and family sessions as clinically appropriate. Risks/benefits/alternatives were reviewed re: his current medications. Discussion included but was not limited to cardiovascular safety profile of stimulants and klonopin being a controlled substance with risk of dependence, etc. Will resume Adderall at 5 mg po qam and midday after PDMP database query and monitro mood, BP, and for thomas. Confirm testosterone dosing. Risk Factors Assessment Male: Yes : Yes Do You Have Access To A Gun?: No Health Problems: Yes Mental Health Diagnoses: Yes Substance Use Disorders: No Previous Attempt: No (denies but not all hospital records available) Family History of Suicide: No Previous Psychiatric Hospitalization: Yes Protective Factors Assessment : No Employed: No Stable Relationships: No Supportive Family: Yes Good Rapport with Provider: No Interval History Identifying Information TATYANA JUAREZ is a 46-year-old M with an apartment in [place] but recently returned to the area from [facility], has a history of multiple ED visits/psychiatric admission, and was admitted on 05/22/21 16:46 on a 201 voluntary commitment for suicidal ideation with plan to OD on his medications. Chief Complaint "I need you to know all I've been through". Then recounts details from medications and somatic symptoms during recent hospitalizations, often talking for extended periods of time about medications. Review of Systems Sleep Information Total Hours of Sleep: 5.5 Sleep Comments: pt given vistaril per rn. pt on q-15 minute checks Meal Information Percent Meal Consumed - Breakfast: 100 Percent Meal Consumed - Lunch: 100 Percent Meal Consumed - Dinner: 100 Subjective Subjective Patient was seen & assessed and interval progress reviewed with nursing and social work. He is difficult to redirect in group as wants to talk about meds rather than therapeutic processing. Also obsesses about his sleep and spent 20+ min going back over med trials that he's already discussed with me and often contradicts himself on efficacy. He was redirected to his general health and also need to plan for his living situation as no support locally. He was scheduled to have a phone meeting with his mother and he refused when time to ca ll. Physical Exam Psychiatric Orientation: alert and oriented x 3 Apperance: appropriately dressed Eye Contact: + poor eye contact Motor Behavior: no abnormal motor movements Speech: normal rate/rhythm/volume of speech Affect: + depressed affect Mood: + irritable mood Thought Process: + perseveration Thought Content: reality based without delusions Suicidal Thoughts: denies suicidal intent; + reports suicidal thoughts (more hopelessness rather than intent) Homicidal Thoughts: denies homicidal thoughts Hallucinations: no auditory hallucinations and no visual hallucinations Cognition: language grossly intact; + attention not intact Estimated Intelligence: consistent with education level Insight: + limited insight Judgement: + limited judgement Vital Signs (Past 24 Hours) Last Vital Signs Temp 36.5 C 05/25/21 06:48 Pulse 98 H 05/25/21 06:49 Resp 16 05/25/21 06:48 BP 132/96 05/25/21 06:49 Pulse Ox 97 05/22/21 16:03 Results & Data ([facility]) Current Inpatient Medications Current Inpatient Medications: Current Inpatient Medications Acetaminophen (Acetaminophen 325 Mg Tab) 650 mg PO Q4H PRN PRN Reason: Headache or Minor Fever Stop: 06/21/21 16:02 Last Admin: 05/23/21 01:57 Dose: 650 mg Documented by: Al Hydrox/Mg Hydrox/Simethicone (Aluminum/Magnesium Susp 30 Ml Udc) 30 ml PO Q4H PRN PRN Reason: GI Upset Stop: 06/21/21 16:02 Amphetamine/Dextroamphetamine (Amphetamine Asp/Sulf/Dextramph 20 Mg Tab) 10 mg PO [id number] [facility] Stop: 06/07/21 13:59 Last Admin: 05/25/21 06:32 Dose: 10 mg Documented by: Bismuth Subsalicylate (Bismuth Subsalicylate Liqd 236 Ml) 15 ml PO PRN PRN PRN Reason: Loose Stool Stop: 06/21/21 16:02 Last Admin: 05/25/21 10:17 Dose: 15 ml Documented by: Clonazepam (Clonazepam 0.5 Mg Tab) 0.5 mg PO TID PRN PRN Reason: Anxiety Stop: 06/21/21 16:08 Last Admin: 05/24/21 03:02 Dose: 0.5 mg Documented by: Doxepin HCl (Doxepin Hcl 50 Mg Capsule) 50 mg PO HS [facility] Stop: 06/24/21 21:59 Fluticasone Propionate (Fluticasone Propionate Na Spr 16 Gm Btl) 2 sprays NA DAILY [facility] Stop: 06/23/21 09:59 Last Admin: 05/25/21 08:15 Dose: 2 sprays Documented by: Magnesium Hydroxide (Magnesium Hydroxide Susp 30 Ml Udc) 30 ml PO DAILY PRN PRN Reason: Constipation Stop: 06/21/21 16:02 Sodium Chloride (Sodium Chloride 0.65% Na Soln 45 Ml ([place])) 1 - 2 sprays NA PRN PRN PRN Reason: Nasal Dryness/Congestion Stop: 06/21/21 16:02 Last Admin: 05/22/21 20:46 Dose: 2 sprays Documented by: Testosterone Cypionate (Testosterone Cypionate Im 200 Mg/Ml Vial) 80 mg IM Q7D [facility] Stop: 06/24/21 10:59 Post Discharge Appointments Primary Care Physician Name Of Family Doctor: [facility] Date of Appointment with PCP: 06/03/21 Time of Appointment with PCP: 12:20 PM Provider Appointment Comment: [address], [place] [address]
[2021-05-25] MEDS: clonazePAM 0.5 MG TAB PO PRN (13:23)
[2021-05-25] MEDS ORDERED: TESTOSTERONE CYPIONATE IM SCH (14:00)
[2021-05-25] MEDS: ACETAMINOPHEN 325 MG TAB PO PRN (19:43)
[2021-05-25] MEDS: DOXEPIN HCL 50 MG CAPSULE PO SCH (21:26)
[2021-05-26] MEDS: clonazePAM 0.5 MG TAB PO PRN (04:58)
[2021-05-26] MEDS: AMPHETAMINE ASP/SULF/DEXTRAMPH 20 MG TAB PO SCH ×2 (06:28→13:22)
[2021-05-26] MEDS: FLUTICASONE PROPIONATE NA SPR 16 GM BTL SCH (08:18)
--- NOTE | 2021-05-26 12:19 | Psychiatric Progress Note ---
Date of Service May 26, 2021 Impression / Recommendations Impression 46 yo male with extensive past medication trials and utilization of the ED reportedly for anxiety/panic and suicidal ideation. Presented to ED twice within 24 hr period with overwhelm and seeking admission. No local support or providers other than [facility]/specialists as just returned from [place]. He remains perseverative on medications and lacks awareness of how his social interactions are perceived by others to a level suggestive of an autism spectrum disorder. 05/26/21: somatic, ambivalent re: medications, disruptive to group programming given perseveration on medication, is not agreeing with therapeutic interventions or recommended aftercare. (1) Depression with suicidal ideation: (2) Low testosterone: (3) Anxiety: (4) Obstructive sleep apnea: (5) Attention deficit disorder of adult: 05/26/21: risks/benefits/alternatives reviewed re: prazosin 2 mg hs (declines 1 mg), discussed goals of inpatient vs outpatient care. 05/25/21: testosterone injection today, increase doxepin to 50 mg hs as retrial (sleep appears improved in quality, he denies). He remains interested in a trial of Vybrid but non-formulary and truthfully his main issues is dy sregulation/perseveration so not clear it will target. He cannot even identify core symptoms just talks about medication failures and past somatic symptoms he attributes to anxiety but were likely hyperfocus, med side effects, or more awareness of his sensory issues. 05/24/21: titrate Adderall to 10 mg BID this pm, increase doxepin to 25 mg (previously effective dose 50 mg). Encouraged group participation. 05/23/21: The patient was admitted to the [facility] ([facility] mental health unit) on q15 min checks (behavioral with suicide precautions) for safety. The patient will participate in group, recreational, and milieu therapies and will be offered additional individual and family sessions as clinically appropriate. Risks/benefits/alternatives were reviewed re: his current medications. Discussion included but was not limited to cardiovascular safety profile of stimulants and klonopin being a controlled substance with risk of dependence, etc. Will resume Adderall at 5 mg po qam and midday after PDMP database query and monitro mood, BP, and for thomas. Confirm testosterone dosing. Risk Factors Assessment Male: Yes : Yes Do You Have Access To A Gun?: No Health Problems: Yes Mental Health Diagnoses: Yes Substance Use Disorders: No Previous Attempt: No (denies but not all hospital records available) Family History of Suicide: No Previous Psychiatric Hospitalization: Yes Protective Factors Assessment : No Employed: No Stable Relationships: No Supportive Family: Yes Good Rapport with Provider: No Interval History Identifying Information TATYANA JUAREZ is a 46-year-old M with an apartment in [place] but recently returned to the area from [facility], has a history of multiple ED visits/psychiatric admission, and was admitted on 05/22/21 16:46 on a 201 voluntary commitment for suicidal ideation with plan to OD on his medications. Chief Complaint "I just get overwhelmed, I don't want to hurt myself but I just want to feel right. ". Review of Systems Sleep Information Total Hours of Sleep: 6 Sleep Comments: pt on q-15 minute checks Meal Information Percent Meal Consumed - Breakfast: 100 Percent Meal Consumed - Lunch: 100 Percent Meal Consumed - Dinner: 100 Subjective Subjective Patient was seen & assessed and interval progress reviewed with treatment team. Patient continues to require frequent redirection to talk about therapeutic topics rather than medications. mainly focussed on sleep today after stated he slept better. He has dreams and doesn't feel rested. Mixed reports about whether or not adderall is helpful. tachy at times unrelated to stimulant. Tried to redirect on goals for inpatient hospitalization as patient's issue are longer term, not expressing SI here just though "if you don't fix this" attitude. Continue to reinforce structure to day outpatient and need for therapy. He is focussed on paying out of pocket for select providers and reviewed that this is not realistic. continues to refuse meeting with mother despite the fact she pays for his apartment only for a few more months. Physical Exam Psychiatric Orientation: alert and oriented x 3 Apperance: appropriately dressed Eye Contact: + poor eye contact Motor Behavior: no abnormal motor movements Speech: normal rate/rhythm/volume of speech Affect: + depressed affect Mood: + irritable mood Thought Process: + perseveration Thought Content: reality based without delusions Suicidal Thoughts: denies suicidal thoughts, denies suicidal plan and denies suicidal intent Homicidal Thoughts: denies homicidal thoughts Hallucinations: no auditory hallucinations and no visual hallucinations Cognition: attention grossly intact and language grossly intact Estimated Intelligence: consistent with education level Insight: + limited insight Judgement: + limited judgement Vital Signs (Past 24 Hours) Last Vital Signs Temp 36.5 C 05/26/21 06:51 Pulse 121 H 05/26/21 06:51 Resp 16 05/26/21 06:51 BP 125/91 05/26/21 06:51 Pulse Ox 97 05/22/21 16:03 Results & Data ([facility]) Current Inpatient Medications Current Inpatient Medications: Current Inpatient Medications Acetaminophen (Acetaminophen 325 Mg Tab) 650 mg PO Q4H PRN PRN Reason: Headache or Minor Fever Stop: 06/21/21 16:02 Last Admin: 05/25/21 19:43 Dose: 650 mg Documented by: Al Hydrox/Mg Hydrox/Simethicone (Aluminum/Magnesium Susp 30 Ml Udc) 30 ml PO Q4H PRN PRN Reason: GI Upset Stop: 06/21/21 16:02 Amphetamine/Dextroamphetamine (Amphetamine Asp/Sulf/Dextramph 20 Mg Tab) 10 mg PO [id number] [facility] Stop: 06/07/21 13:59 Last Admin: 05/26/21 06:28 Dose: 10 mg Documented by: Bismuth Subsalicylate (Bismuth Subsalicylate Liqd 236 Ml) 15 ml PO PRN PRN PRN Reason: Loose Stool Stop: 06/21/21 16:02 Last Admin: 05/25/21 10:17 Dose: 15 ml Documented by: Clonazepam (Clonazepam 0.5 Mg Tab) 0.5 mg PO TID PRN PRN Reason: Anxiety Stop: 06/21/21 16:08 Last Admin: 05/26/21 04:58 Dose: 0.5 mg Documented by: Doxepin HCl (Doxepin Hcl 50 Mg Capsule) 50 mg PO HS [facility] Stop: 06/24/21 21:59 Last Admin: 05/25/21 21:26 Dose: 50 mg Documented by: Fluticasone Propionate (Fluticasone Propionate Na Spr 16 Gm Btl) 2 sprays NA DAILY [facility] Stop: 06/23/21 09:59 Last Admin: 05/26/21 08:18 Dose: 2 sprays Documented by: Testosterone Cypionate 80 mg/ (Syringe) 0.4 mls @ 0.4 mls/sec IM Q7D@0900 [facility] Stop: 06/24/21 13:59 Last Admin: 05/25/21 14:24 Dose: 0.4 mls/sec Documented by: Magnesium Hydroxide (Magnesium Hydroxide Susp 30 Ml Udc) 30 ml PO DAILY PRN PRN Reason: Constipation Stop: 06/21/21 16:02 Prazosin HCl (Prazosin Hcl 1 Mg Cap) 0.2 mg PO HS [facility] Stop: 06/25/21 21:59 Sodium Chloride (Sodium Chloride 0.65% Na Soln 45 Ml ([place])) 1 - 2 sprays NA PRN PRN PRN Reason: Nasal Dryness/Congestion Stop: 06/21/21 16:02 Last Admin: 05/22/21 20:46 Dose: 2 sprays Documented by: Post Discharge Appointments Primary Care Physician Name Of Family Doctor: [facility] Date of Appointment with PCP: 06/03/21 Time of Appointment with PCP: 12:20 PM Provider Appointment Comment: [address], [place] [address]
[2021-05-26] MEDS: DOXEPIN HCL 50 MG CAPSULE PO SCH (21:04)
[2021-05-26] MEDS ORDERED: PRAZOSIN HCL 1 MG CAP PO SCH (22:00)
[2021-05-26] MEDS: ACETAMINOPHEN 325 MG TAB PO PRN (23:06)
[2021-05-27] MEDS: clonazePAM 0.5 MG TAB PO PRN (01:45)
[2021-05-27] MEDS: AMPHETAMINE ASP/SULF/DEXTRAMPH 20 MG TAB PO SCH (06:41)
[2021-05-27] MEDS: FLUTICASONE PROPIONATE NA SPR 16 GM BTL SCH (08:52)
--- NOTE | 2021-05-27 10:45 | Discharge Summary ---
Date of Service May 27, 2021 History of Present Illness The patient reports he is irritable and "might as well " as feels he cannot function without proper psychiatric care. He reports having to leave school and multiple hospitalizations since stopping Adderall XR that was under the direction of Dr. Mcclain since [address] Mcclain hadn't seen the patient for several months prior to that as no longer accepting his insurance. The patient reports he gets frustrated when no one will listen and accuse him of being a "drug addict" and he describes being "flushed of Ativan" in [place] at a program his family recommended. He perseverates on medications and is difficult to redirect to symptoms and provides a very inconsistent timeline as either confuses inpatient stays/care providers or focusses on the emotion of the story. He denies a history of psychosis or juvenal and maintains that prior diagnoses have been related to side effects of medications (either administration or withdrawal). He had poor sleep last night. Appetite is intact. Concentration is poor. Review of chart does outline previous inattentive symptoms that did impact his college education. He had difficulty getting tested for accommodations at the time. He denies hyperactivity. He was recently prescribed Wellbutrin and Seroquel but has been noncompliant with them. He has repeatedly messaged [facility] primary care offices with lengthy medication requests and does swear/express anger but nothing bizarre or threatening. He continues to report no local support, relies on family for money, and doesn't "see a point of being here anymore". He reports having a "long list of pills" so unclear how many bottles he may have returned with him. He is reporting benefit from testosterone injections. His last shot was 05/18/[address] Garrido had increased the dose. He denies paranoia, states it's difficult for him to leave the house as he wonders what others think of him. Social skills have been questionable given length of mental health issues, failure to complete a [employer] degree as an adult after 6 years, states that has only been interested in 1 relationship his entire life (a [employer] student he met online). Physical Exam Psychiatric See admission H&P and DOD summary. Vital Signs (Past 24 Hours) Last Vital Signs Temp 36.5 C 05/27/21 06:54 Pulse 86 05/27/21 06:55 Resp 18 05/27/21 06:54 BP 146/113 H 05/27/21 06:55 Pulse Ox 97 05/22/21 16:03 Principal Diagnosis unspecified mood disorder Psychiatric Data See daily stay summary. In short, safety was maintained and the patient was largely uncooperative with care. He would disrupt groups with lengthy discussions of his own personal medications and was not redirectible. His attendance was ultimately limited to community meeting which was also his preference as "therapy is crap and doesn't help". He would request medication changes and then complain he wasn't being listened to or helped. He refused a family meeting with his mother and initially refused ROIs to refer to outpatient providers, despite the fact that lack of providers was his main complaint. When the patient does not get his way he makes provocative statements like "I'm messed up, I might as well " but he exhibited no psychosis, juvenal, or evidence of impulsivity on the unit and he clearly is somatic and seeking the sick role, repeatedly discussing care he needs but then declining it (example ENT follow up and sleep clinic follow up for his sleep apnea). On the evening prior to discharge he requested discharge, was upset re: trial of prazosin despite requesting it. His sleep appears improved to staff. His diast olic bp was elevated this am as irritable and wanting to leave so he could "torch his car". He mentioned this as the reason he wouldn't be attending some of his recommended follow up appointments. His perseveration is suggestive of some autistic traits but childhood symptoms are denied so likely personality disorder. His current statements appear to be malingering as he is unhappy with his medication regimen despite the fact I have had lengthy discussions with him and provided rx. He appeared calm and well groomed following our discussion as [place] [facility] [place]. Medication changes included retrial of Adderall, continuation of prn Klonopin, increase in doxepin and retrial of prazosin. Risks/benefits/alternatives reviewed re: Viibryd as hx of extensive antidepressant trials and doesn't have as many sexual side effects as SSRI. He has been aware his entire stay that extended release stimulants and Viibryd are nonformulary and as he had no one to grape picker prescriptions they would be transitioned/started at discharge. Despite requesting a Viibryd trial he was upset it was started at discharge. Reviewed that this medication is routinely started on an outpatient basis and that he no longer meets acute inpatient criteria in that he is not psychotic or suicidal. His concerns are longstanding and unlikely to respond to acute inpatient hospitalization and the factors that could be mitigated have been addressed. Just prior to discharge the patient did sign appropriate releases for outpatient referrals. Day of Discharge Assessment Today the patient voices readiness for discharge. They note improvement in mood and deny thoughts to harm self or others. Thoughts remain organized and they are improved from admission. There is no evidence of psychosis. They agree to take mediations as prescribed and keep follow-up appointments. They are stable for discharge to outpatient level of care. Transition of Care Transition Of Care Record: was reviewed with the patient Advance Directives Advance Directives Information Provided: Yes Advance Directives: No Mental Health Advance Directive: No Advance Directives on File: No Living Will: No Power of Continuous Pickling Line Pickler: No Advance Directives Reason:: Declines as Mental Health Visit. Risk Factors Assessment Male: Yes : Yes Do You Have Access To A Gun?: No Health Problems: Yes Mental Health Diagnoses: Yes Substance Use Disorders: No Previous Attempt: No (denies but not all hospital records available) Family History of Suicide: No Previous Psychiatric Hospitalization: Yes Protective Factors Assessment : No Employed: No Stable Relationships: No Supportive Family: Yes Good Rapport with Provider: No Tobacco Cessation at Discharge Tobacco Cessation Medication Prescribed at Discharge: Not Applicable/Non-Smoker Total Time Total Time Spent: Greater Than 30 Minutes Total Time Includes: Examination of the patient, Discharge Planning and Medication Reconciliation Discharge Data Lab Results 05/22/21 05/22/21 05/22/21 13:32 13:47 13:47 WBC 5.15 RBC 5.49 Hgb 16.9 Hct 47.3 MCV 86.2 MCH 30.8 MCHC 35.7 RDW Std Deviation 40.4 RDW Coeff of Eileen 12.9 Plt Count 203 MPV 9.9 Immature Gran % (Auto) 0.2 Neut % (Auto) 57.8 Lymph % (Auto) 29.7 Harding % (Auto) 7.8 Eos % (Auto) 4.3 Baso % (Auto) 0.2 Neut # (Auto) 2.98 Lymph # (Auto) 1.53 Harding # (Auto) 0.40 Eos # (Auto) 0.22 Baso # (Auto) 0.01 Immature Gran # (Auto) 0.01 Sodium 139 Potassium 4.1 Chloride 105 Carbon Dioxide 29 Anion Gap 5.0 BUN 8 Creatinine 1.03 Est Cr Clr Drug Dosing 102.8 Est GFR ( Amer) 99.1 Est GFR (Non-Af Amer) 85.5 BUN/Creatinine Ratio 7.6 L Glucose 130 H Calcium 10.6 H Total Bilirubin 0.3 AST 22 ALT 65 Alkaline Phosphatase 74 Total Protein 8.6 H Albumin 4.4 Globulin 4.2 H Albumin/Globulin Ratio 1.0 TSH 0.797 Urine Color Urine Appearance Urine pH Ur Specific Jonancy Urine Protein Urine Glucose (UA) Urine Ketones Urine Blood Urine Nitrite Urine Bilirubin Urine Urobilinogen Ur Leukocyte Esterase Salicylates Urine Opiates Screen Ur Methadone, Qual Acetaminophen Urine Barbiturates Ur Phencyclidine (PCP) U Amphetamin/Meth Scrn MDMA (Ecstasy) Screen U Benzodiazepines Scrn Ur Cocaine Metabolite U Marijuana (THC) Screen Ethyl Alcohol mg/dL SARS-CoV-2, RNA, NAAT NEGATIVE 05/22/21 05/22/21 05/22/21 13:47 13:47 13:51 WBC RBC Hgb Hct MCV MCH MCHC RDW Std Deviation RDW Coeff of Eileen Plt Count MPV Immature Gran % (Auto) Neut % (Auto) Lymph % (Auto) Harding % (Auto) Eos % (Auto) Baso % (Auto) Neut # (Auto) Lymph # (Auto) Harding # (Auto) Eos # (Auto) Baso # (Auto) Immature Gran # (Auto) Sodium Potassium Chloride Carbon Dioxide Anion Gap BUN Creatinine Est Cr Clr Drug Dosing Est GFR ( Amer) Est GFR (Non-Af Amer) BUN/Creatinine Ratio Glucose Calcium Total Bilirubin AST ALT Alkaline Phosphatase Total Protein Albumin Globulin Albumin/Globulin Ratio TSH Urine Color Yellow Urine Appearance Clear Urine pH 6.5 Ur Specific Jonancy 1.011 Urine Protein Negative Urine Glucose (UA) Negative Urine Ketones Negative Urine Blood Negative Urine Nitrite Negative Urine Bilirubin Negative Urine Urobilinogen Negative Ur Leukocyte Esterase Negative Salicylates < 1.7 L Urine Opiates Screen Ur Methadone, Qual Acetaminophen < 2 L Urine Barbiturates Ur Phencyclidine (PCP) U Amphetamin/Meth Scrn MDMA (Ecstasy) Screen U Benzodiazepines Scrn Ur Cocaine Metabolite U Marijuana (THC) Screen Ethyl Alcohol mg/dL < 3.0 SARS-CoV-2, RNA, NAAT 05/22/21 13:51 WBC RBC Hgb Hct MCV MCH MCHC RDW Std Deviation RDW Coeff of Eileen Plt Count MPV Immature Gran % (Auto) Neut % (Auto) Lymph % (Auto) Harding % (Auto) Eos % (Auto) Baso % (Auto) Neut # (Auto) Lymph # (Auto) Harding # (Auto) Eos # (Auto) Baso # (Auto) Immature Gran # (Auto) Sodium Potassium Chloride Carbon Dioxide Anion Gap BUN Creatinine Est Cr Clr Drug Dosing Est GFR ( Amer) Est GFR (Non-Af Amer) BUN/Creatinine Ratio Glucose Calcium Total Bilirubin AST ALT Alkaline Phosphatase Total Protein Albumin Globulin Albumin/Globulin Ratio TSH Urine Color Urine Appearance Urine pH Ur Specific Jonancy Urine Protein Urine Glucose (UA) Urine Ketones Urine Blood Urine Nitrite Urine Bilirubin Urine Urobilinogen Ur Leukocyte Esterase Salicylates Urine Opiates Screen Neg Ur Methadone, Qual Neg Acetaminophen Urine Barbiturates Neg Ur Phencyclidine (PCP) Neg U Amphetamin/Meth Scrn Neg MDMA (Ecstasy) Screen Pos H U Benzodiazepines Scrn Neg Ur Cocaine Metabolite Neg U Marijuana (THC) Screen Neg Ethyl Alcohol mg/dL SARS-CoV-2, RNA, NAAT Hospital Course (1) Depression with suicidal ideation: (2) Low testosterone: (3) Anxiety: (4) Obstructive sleep apnea: (5) Attention deficit disorder of adult: 05/26/21: risks/benefits/alternatives reviewed re: prazosin 2 mg hs (declines 1 mg), discussed goals of inpatient vs outpatient care. 05/25/21: testosterone injection today, increase doxepin to 50 mg hs as retrial (sleep appears improved in quality, he denies). He remains interested in a trial of Vybrid but non-formulary and truthfully his main issues is dysregulation/perseveration so not clear it will target. He cannot even identify core symptoms just talks about medication failures and past somatic symptoms he attributes to anxiety but were likely hyperfocus, med side effects, or more awareness of his sensory issues. 05/24/21: titrate Adderall to 10 mg BID this pm, increase doxepin to 25 mg (previously effective dose 50 mg). Encouraged group participation. 05/23/21: The patient was admitted to the [facility] ([facility] mental health unit) on q15 min checks (behavioral with suicide precautions) for safety. The patient will participate in group, recreational, and milieu therapies and will be offered additional individual and family sessions as clinically appropriate. Risks/benefits/alternatives were reviewed re: his current medications. Discussion included but was not limited to cardiovascular safety profile of st imulants and klonopin being a controlled substance with risk of dependence, etc. Will resume Adderall at 5 mg po qam and midday after PDMP database query and monitro mood, BP, and for thomas. Confirm testosterone dosing. Mental Health & Subst Abuse Tx Psychiatrist Name of Psychiatrist: None Psychiatric Appointment Comment: will provide information for outpatient providers Therapist Name of Therapist: [facility]'s Date of Therapist Appointment: 06/09/21 Time of Therapist Appointment: 1pm Therapy Appointment Comment: [id number] [facility] Discharge Appointments Primary Care Physician Name Of Family Doctor: Keira [facility] Date of Appointment with PCP: 06/03/21 Time of Appointment with PCP: 12:20 PM Provider Appointment Comment: [address], [place] [address] Smoking Cessation Counseling Tobacco Cessation Medication Prescribed at Discharge: Not Applicable/Non-Smoker Contact Information Discharge Discharge Address: [address] [place] [address]. [address] [place] [id number] Discharge Plan Discharge Items Patient Disposition: Home - Self-Care Reason For Visit: DEPRESSION Discharge Diagnosis: unspecified depressive disorder Activity: Resume your previous activity Non-emergency contact: Primary Care Provider, Psychiatrist and Therapist Call non-emergency contact if: you have any medication questions and your symptoms worsen Follow-up/Referrals: Polly Knapp PA-C [Primary Care Provider] - Diet: Regular Addtl Attending Provider Instructions: SPECIAL CARE INSTRUCTIONS: 1. Follow through with your scheduled aftercare appointments. If unable to keep an appointment, please call to reschedule. 2. Take your medication only as prescribed. Medication should not be changed or stopped without the approval of your doctor. In the event of worsening symptoms or concerns about side effects, contact your doctor immediately. 3. Utilize new healthy coping skills, anger management skills, and stress management skills learned during your hospitalization. Journal feelings and process them with a support person. Identify stressors or situations that may result in relapse, deterioration or inappropriate behaviors and develop a plan to deal with those issues. 4. If your coping skills are ineffective and you are in crisis, contact your outpatient providers for direction. If unable to reach your providers, please call the [facility] CRISIS LINE AT , go to the [facility] walk-in center at [address], [place], or go to the closest Emergency Room. 5. Avoid alcohol and un-prescribed drugs. 6. You have been provided with the Mental Health Advance Directives Pamphlet for your review. 7. Your condition is stable for discharge to outpatient level of care, but recovery is an ongoing process. Ifthoughts to harm yourself or others return, follow the safety plan developed during your stay. Planning for a safe return home includes securing weapons. Our treatment team recommends weaponsbe removed from the home until your outpatient provider reassesses your progress. In rare cases where the items themselvescannot be removed, guns and ammunitionshould be secured separatelyand keys stored by a reliable personoutside of the home. If you were admitted on an involuntary commitment, the police or other legal authorities may be involved in this process. AFTERCARE APPOINTMENTS: * Please call your insurance company prior to your scheduled appointment to confirm your aftercare providers are covered. Take your insurance information to your appointments. WHO TO CALL AND WHEN: Medical Emergencies: For questions or emergencies related to your hospital stay, please contact the Inpatient Behavioral Health Unit at [phone]. A shopper insights manager is on-call 12/12 for the Behavioral Health Unit for emergencies At any time you feel your situation is an emergency, you may also call 911 immediately. Pending Studies at Discharge: No Stand-Alone Forms: My [employer], Smoking Cessation Medications and DC Order Prescriptions: New prazosin 1 mg Capsule 2 mg PO HS Qty: 14 RF: 1 clonazepam 0.5 mg Tablet 0.5 mg PO TID PRN (Reason: anxiety) Qty: 14 RF: 1 dextroamphetamine-amphetamine [Adderall XR] 20 mg capsule,extended release 24hr 20 mg PO QAM Qty: 30 RF: 0 doxepin 50 mg Capsule 50 mg PO HS Qty: 14 RF: 1 Viibryd 10 mg tablet 10 mg PO DAILY Qty: 30 RF: 0 Continued testosterone cypionate 200 mg/mL oil 80 mg IM WK RF: 0 fluticasone propionate 50 mcg/actuation spray,suspension 2 spray INTRANASAL DAILY 30 Days Qty: 1 RF: 0 Discontinued clonazepam 0.5 mg tablet 0.5 mg PO BID RF: 0 doxepin 10 mg capsule 10 mg PO HS RF: 0 Discharge Orders: Discharge Order (Routine); Ordered 05/27/21 Ordered By: Michelle Storey Admission Data Admit Date/Time: 05/22/21 16:46 Attending Provider: Michelle Storey Admit Provider: Michelle Storey Primary Care Provider: Polly Knapp Other Interventions: Discharge Summary Assessment (RN) Last Done: 05/27/21 10:52 PSY Interdisciplinary Discharge Planning Last Done: 05/27/21 11:19 Coding Level of Care Code 79759 D/C day mgmt > 30 min Diagnoses Depression with suicidal ideation F32.A; R45.851 Low testosterone R79.89 Anxiety F41.9 Obstructive sleep apnea G47.33 Attention deficit disorder of adult F98.8
[2021-05-27 14:40] LABS: MDA negative; MDEA negative; MDMA (Ecstasy) Urine, Confirm negative
== END 2021-05-27 11:34 | disposition home or self-care (01) | DRG 881 ==
LOC: ED 12:36 → 3S 16:28